=== PATIENT | female | born 1960 | race Caucasian/White ===

== ENCOUNTER 2020-05-21 09:53 | Outpatient (CLI) | payer OTHER, SELFPAY ==
[2020-05-21 10:57] LABS: Basophils Percent Auto 0.9 % (0.2-1.2); Eosinophils Absolute Auto 0.2 K/mm3 (0-0.3); Hematocrit 43.7 % (37.0-47.0); Hemoglobin 14.3 g/dL (12.0-15.0); Immature Granulocyte Absolute 0.02 K/mm3 (0.00-0.031); Immature Granulocyte Percent A 0.6 % (0-0.5); Lymphocytes Absolute Auto 0.89 K/mm3 (0.9-3.2); Lymphocytes Percent Auto 25.4 % (18.3-44.2); Mean Corpuscular HGB Conc 32.7 g/dl (32-36); Mean Corpuscular Hemoglobin 29.4 pg (26-34); Mean Corpuscular Volume 89.7 fl (80-100); Monocytes Absolute Auto 0.4 K/mm3 (0.1-0.6); Monocytes Percent Auto 10.9 % (2.6-8.5); Neutrophils Percent Auto 56.2 % (45.5-73.1); Platelet Count Result 225 k/mm3 (150-375); Red Blood Count 4.87 M/mm3 (4.2-5.4); Red Cell Distribution Width 13.9 % (11.5-14.5); White Blood Count 3.5 K/mm3 (4.5-10.0)
[2020-05-21 11:10] LABS: Alanine Aminotransferase 28 U/L (4-35); Alkaline Phosphatase 70 U/L (38-126); Anion Gap 6 mmol/L (8-16); Aspartate Amino Transferase 29 U/L (14-36); Bilirubin,Total 0.8 mg/dL (0.2-1.3); Blood Urea Nitrogen 21 mg/dL (7-17); Calcium 9.3 mg/dL (8.4-10.2); Carbon Dioxide 32 mmol/L (22-30); Chloride 104 mmol/L (98-107); Cholesterol 155 mg/dL (0-200); Estimated Glomerular Filt Rate > 60; Glucose 97 mg/dL (65-105); HDL Direct 68 mg/dL; Potassium 4.4 mmol/L (3.4-5.0); Sodium 142 mmol/L (137-145); Triglycerides 45 mg/dL (<150)
[2020-05-21 11:20] LABS: LDL Cholesterol Direct 74 mg/dL
[2020-05-21 11:53] LABS: Vitamin D 25 Hydroxy 81.2 ng/mL
[2020-05-26 12:52] LABS: FSH 85.4 mIU/mL (***); LH 49.8 mIU/mL (***)
[2020-05-27 22:56] LABS: Estradiol, Ultrasensitive 4 pg/mL
== END 2020-05-21 09:54 | disposition home or self-care (01) ==
LOC: ANHLAB 09:58
PROVIDERS: PCP Nurse Practitioner Family; Visit Provider Nurse Practitioner Family
DX: N94.10 Unspecified dyspareunia (principal); I10 Essential (primary) hypertension; Z13.1 Encounter for screening for diabetes mellitus; Z13.29 Encounter for screening for other suspected endocrine disorder; Z13.220 Encounter for screening for lipoid disorders
CPT/HCPCS: 36415; 80053; 80061; 82306; 82607; 82670; 83001; 83002; 84443; 85025

== ENCOUNTER 2020-09-11 10:56 | Outpatient (CLI) | payer OTHER, SELFPAY ==
--- NOTE | ~2020-09-11 | US_ITS ---
EXAMINATION: US venous doppler LE DATE: 09/11/2020 11:34 INDICATION: Lower limb swelling post right total knee arthroplasty TECHNIQUE: Grayscale ultrasound images without and with compression and Doppler ultrasound images of the right lower extremity veins were obtained. COMPARISON: None. FINDINGS: The visualized portions of right common femoral vein, profunda (deep) femoral vein, femoral vein, pop liteal vein, peroneal trunk, posterior tibial veins, peroneal veins, gastrocnemius vein and greater s aphenous vein outflow are patent. IMPRESSION: 1. No deep venous thrombosis in the right lower limb. Reviewed, dictated and finalized at location B. [employer]
== END 2020-09-11 10:57 | disposition home or self-care (01) ==
LOC: ANHIMG 10:58
PROVIDERS: PCP Nurse Practitioner Family; Visit Provider Orthopaedic Surgery
DX: R60.0 Localized edema (principal)
CPT/HCPCS: 93971

== ENCOUNTER 2021-09-07 15:15 | Outpatient (CLI) | payer OTHER, SELFPAY ==
[2021-09-07 16:09] LABS: Alanine Aminotransferase 30 U/L (4-35); Albumin Level 4.5 g/dL (3.5-5.1); Alkaline Phosphatase 65 U/L (38-126); Anion Gap 8 mmol/L (8-16); Aspartate Amino Transferase 26 U/L (14-36); Bilirubin,Total 0.4 mg/dL (0.2-1.3); Blood Urea Nitrogen 23 mg/dL (7-17); Calcium 9.4 mg/dL (8.4-10.2); Carbon Dioxide 32 mmol/L (22-30); Chloride 101 mmol/L (98-107); Cholesterol 180 mg/dL (0-200); Estimated Glomerular Filt Rate > 60; Glucose 129 mg/dL (65-110); HDL Direct 64 mg/dL; Potassium 3.8 mmol/L (3.4-5.0); Sodium 141 mmol/L (137-145); Triglycerides 111 mg/dL (<150)
[2021-09-07 16:10] LABS: Basophils Percent Auto 0.5 % (0.2-1.2); Eosinophils Absolute Auto 0.1 K/mm3 (0-0.3); Eosinophils Percent Auto 1.1 % (0-4.4); Hematocrit 46.1 % (37.0-47.0); Hemoglobin 15.2 g/dL (12.0-15.0); Immature Granulocyte Absolute 0.01 K/mm3 (0.00-0.031); Immature Granulocyte Percent A 0.2 % (0-0.5); Lymphocytes Absolute Auto 1.55 K/mm3 (0.9-3.2); Lymphocytes Percent Auto 27.7 % (18.3-44.2); Mean Corpuscular Hemoglobin 29.6 pg (26-34); Mean Corpuscular Volume 89.9 fl (80-100); Mean Platelet Volume 11.2 fl (7.4-10.4); Monocytes Absolute Auto 0.4 K/mm3 (0.1-0.6); Monocytes Percent Auto 6.6 % (2.6-8.5); Neutrophils Absolute Auto 3.6 K/mm3 (1.3-6.7); Neutrophils Percent Auto 63.9 % (45.5-73.1); Platelet Count Result 241 k/mm3 (150-375); Red Blood Count 5.13 M/mm3 (4.2-5.4); Red Cell Distribution Width 13.2 % (11.5-14.5); White Blood Count 5.6 K/mm3 (4.5-10.0)
[2021-09-07 16:20] LABS: LDL Cholesterol Direct 91 mg/dL
[2021-09-07 17:14] LABS: Thyroid Stimulating Hormone Reflex 0.294 uIU/mL (0.465-4.68)
[2021-09-07 22:01] LABS: Hemoglobin A1C 4.9 % (<5.7)
[2021-09-07 22:45] LABS: Free T4 Free Thyroxine Reflex 0.95 ng/dL (0.78-2.19)
== END 2021-09-07 15:16 | disposition home or self-care (01) ==
LOC: ANHLAB 15:20
PROVIDERS: PCP Nurse Practitioner Family; Visit Provider Nurse Practitioner Family
DX: Z13.0 Encounter for screening for diseases of the blood and blood-forming organs and certain disorders involving the immune mechanism (principal); Z13.1 Encounter for screening for diabetes mellitus; Z13.29 Encounter for screening for other suspected endocrine disorder; Z13.220 Encounter for screening for lipoid disorders
CPT/HCPCS: 36415; 80053; 80061; 83036; 84439; 84443; 84480; 85025

== ENCOUNTER 2021-10-05 17:17 | Outpatient (CLI) | payer OTHER, SELFPAY ==
--- NOTE | ~2021-10-05 | MM_ITS ---
EXAMINATION: MM screening byron BI w giovanny HISTORY: Screening mammogram TECHNIQUE: Craniocaudal and mediolateral oblique 3-D tomosynthesis images were obtained and synthetic 2-D images were generated. CAD analysis was submitted and interpreted. COMPARISON: No prior mammogram is available for comparison at this institution. BREAST PARENCHYMAL COMPOSITION: There are scattered areas of fibroglandular density. FINDINGS: There is asymmetric density in the lower left breast on MLO view. Comparison with prior byron mogram at [place] is recommended. Otherwise no suspicious mass, architectural distortion, malignant calcification, skin thickening or r etraction is evident. IMPRESSION: 1. Left mammographic asymmetry, lower left breast, MLO view 2. Recommend comparison with prior mammogram at [place]; this asymmetry is new, then fur ther diagnostic mammogram and ultrasound workup are recommended. BI-RADS Category 0: Incomplete: Needs additional imaging evaluation. Reviewed, dictated and finalized at location A. [employer] IMPRESSION: 1. Left mammographic asymmetry, lower left breast, MLO view 2. Recommend comparison with prior mammogram at [place]; this asym metry is new, then further diagnostic mammogram and ultrasound workup are recom mended. BI-RADS Category 0: Incomplete: Needs additional imaging evaluation.
== END 2021-10-05 17:18 | disposition home or self-care (01) ==
LOC: ANHIMG 17:19
PROVIDERS: PCP Nurse Practitioner Family; Visit Provider Nurse Practitioner Family
DX: Z12.31 Encounter for screening mammogram for malignant neoplasm of breast (principal); R92.8 Other abnormal and inconclusive findings on diagnostic imaging of breast
CPT/HCPCS: 77063; 77067

== ENCOUNTER 2021-11-08 13:23 | Outpatient (CLI) | payer OTHER, SELFPAY ==
--- NOTE | ~2021-11-08 | MMUS_ITS ---
EXAMINATION: MM diagnostic byron LT w giovanny, US breast LT limited HISTORY: Left breast asymmetry on screening mammogram TECHNIQUE: Additional 3-D tomosynthesis images of the left breast were performed and synthetic 2-D im ages were generated. CAD analysis was submitted and interpreted. High resolution limited left breast ultrasound was performed. COMPARISON: 10/05/2021, 06/13/2019, 09/16/2014 BREAST PARENCHYMAL COMPOSITION: There are scattered areas of fibroglandular density. FINDINGS: MAMMOGRAPHIC FINDINGS: There is a return to baseline fibroglandular appearance with spot compression of the left breast in t he area questioned on screening mammogram. ULTRASOUND: No suspicious sonographic correlate is identified for the mammographic finding in question. There is a 2 mm cyst at the 7:00 location 1 cm from the nipple. IMPRESSION: 1. No mammographic or sonographic evidence of malignancy. 2. Recommend routine screening mammography in one year. BI-RADS Category 2: Benign finding(s). Reviewed, dictated and finalized at location A. IMPRESSION: 1. No mammographic or sonographic evidence of malignancy. 2. Recommend routine screening mammography in one year. BI-RADS Category 2: Benign finding(s).
== END 2021-11-08 13:24 | disposition home or self-care (01) ==
LOC: ANHIMG 13:27
PROVIDERS: PCP Nurse Practitioner Family; Visit Provider Nurse Practitioner Family
DX: R92.8 Other abnormal and inconclusive findings on diagnostic imaging of breast (principal)
CPT/HCPCS: 76642; 77061; 77065; G0279

== ENCOUNTER 2021-11-10 01:34 | Day surgery (SDC) | payer OTHER, SELFPAY ==
[2021-11-02 10:38] VITALS: BMI 28.8
[2021-11-10 06:53] VITALS: BP 162/86; PULSE 70; RESP 18; TEMP 36.2; O2SAT 100
[2021-11-10] MEDS: LACTATED RINGERS 1,000 ML 150 ML IV CONT (06:59)
--- NOTE | 2021-11-10 07:08 | P.CONGI_ITS ---
Assessment and Plan Assessment and plan (1) Colon cancer screening: Code(s): Z12.11 - Encounter for screening for malignant neoplasm of colon Status: Acute (2) History of colon cancer: Code(s): Z85.038 - Personal history of other malignant neoplasm of large intestine Status: Acute Assessment and Plan: Colonoscopy with possible biopsy or polypectomy or cautery or injection of substances. GI Consult Note Consult date/time: 11/10/21 07:08 HPI: Archana Jones is a 61 year old female Who had rectal cancer diagnosed in 2007. She had a resection and temporary colostomy and then reanastomosis. Her only issues that her stools have tended to be on a soft and loose side for the past several years. She has had a cholecystectomy Review of Systems 2 Review of Systems: All systems reviewed & are unremarkable except as noted in HPI and below PMFSH Family History Family History Grandparent Hypertension Diabetes mellitus Father Family history of lung cancer Other Family history of primary malignant neoplasm of liver Social History Social History Smoking status: Former smoker Tobacco type: cigarettes Smoking end date: 08/14/09 Alcohol intake: current Drinks per week: 2 Alcohol use details: wine Substance use: never Substance use type: does not use Living arrangements: with family Spiritual care concerns: No Meds Home Medications and Allergies Home Medications Medication Instructions Recorded Confirmed Type escitalopram oxalate 5 mg PO DAILY 11/02/21 11/10/21 History Allergies Allergy/AdvReac Type Severity Reaction Status Date / Time adhesive Allergy Unknown RASH Verified 11/10/21 06:52 bacitracin Allergy Unknown Rash Verified 11/10/21 06:52 neomycin Allergy Unknown Rash Verified 11/10/21 06:52 polymyxin B Allergy Unknown Rash Verified 11/10/21 06:52 Vital Signs Vital Signs - 24 hr 11/10/21 06:53 Temperature 36.2 C L Pulse Rate 70 Respiratory Rate 18 Blood Pressure 162/86 H Pulse Oximetry 100 Exam Resp: Auscultation: clear to auscultation bilaterally Cardio: Rate: regular rate Rhythm: regular rhythm GI: GI Palp: Yes Soft to palpation and No Tenderness to palpation present (GI) AMG Consult Billing Observation Consult [id number] Estab Pt Lvl 2
--- NOTE | 2021-11-10 07:26 | WPDANESEPPF ---
Anes - Initial Pre Proc Eval Procedure: Operation Date: 11/10/21 08:00 Proposed Procedures p Screening Colonoscopy - Raul Doshi MD Date/Time: 11/10/21 07:26 Surgeon: Raul Doshi MD Pre Op Diagnosis: hx of colon rectal ca Patient Data Age: 61 Gender: F Height: 1.73 m Weight: 87.5 kg Last Vital Signs Temp 36.2 C L 11/10/21 06:53 Pulse 70 11/10/21 06:53 Resp 18 11/10/21 06:53 BP 162/86 H 11/10/21 06:53 Pulse Ox 100 11/10/21 06:53 Allergies Allergy/AdvReac Type Severity Reaction Status Date / Time adhesive Allergy Unknown RASH Verified 11/10/21 06:52 bacitracin Allergy Unknown Rash Verified 11/10/21 06:52 neomycin Allergy Unknown Rash Verified 11/10/21 06:52 polymyxin B Allergy Unknown Rash Verified 11/10/21 06:52 Home Medications Medication Instructions Recorded Confirmed Type escitalopram oxalate 5 mg PO DAILY 11/02/21 11/10/21 History Patient hx anesthesia problems: none Family hx anesthesia problems: none Results Review: All pre-operative results and documents have been reviewed as part of the pre-operative evaluation. [facility] Past Medical History Medical History (Updated 11/10/21 @ 07:29 by Juan Ramon Hernandez MD) Anxiety Depression HTN (hypertension) Family History Family History Grandparent Hypertension Diabetes mellitus Father Family history of lung cancer Other Family history of primary malignant neoplasm of liver Social History Social History Smoking status: Former smoker Tobacco type: cigarettes Smoking end date: 08/14/09 Alcohol intake: current Drinks per week: 2 Alcohol use details: wine Substance use: never Substance use type: does not use Living arrangements: with family Spiritual care concerns: No Anes - Eval Final PreProcedure Day of Procedure 11/10/21 07:26 Patient weight: overweight Heart: regular rate and rhythm Lungs: clear to auscultation and normal air movement Airway: Mallampati scale class II Neurological: alert and oriented Last oral intake: >/= 8 hours ASA classification: II Emergent: no Anesthetic plan: proceed Anesthesia type and monitoring: general GIVS Results Review: All pre-operative results and documents have been reviewed as part of the pre-operative evaluation. Informed Consent: The patient's anesthetic plan and its attendant risks and benefits were discussed with the patient/family/POA. Questions were solicited and answers provided to the satisfaction of the patient/family/POA.
[2021-11-10 08:13] VITALS: BP 122/81; PULSE 67; RESP 14; O2SAT 100
[2021-11-10 08:23] VITALS: BP 148/95; PULSE 64; RESP 16; O2SAT 100
[2021-11-10 08:33] VITALS: BP 144/92; PULSE 65; RESP 18; O2SAT 100
== END 2021-11-10 08:43 | disposition home or self-care (01) ==
PROVIDERS: PCP Nurse Practitioner Family; Visit Provider Internal Medicine Gastroenterology
PROC: 0DJD8ZZ Inspection of Lower Intestinal Tract, Via Natural or Artificial Opening Endoscopic (ICD-10-PCS; CPT 45378; principal; 2021-11-10 08:00)
DX: Z12.11 Encounter for screening for malignant neoplasm of colon (principal); K57.30 Diverticulosis of large intestine without perforation or abscess without bleeding; Z98.0 Intestinal bypass and anastomosis status; Z85.048 Personal history of other malignant neoplasm of rectum, rectosigmoid junction, and anus; Z90.49 Acquired absence of other specified parts of digestive tract; F41.8 Other specified anxiety disorders; Z87.891 Personal history of nicotine dependence
CPT/HCPCS: 45378; J2704; J7120

== ENCOUNTER 2022-01-25 14:23 | Outpatient (CLI) | payer OTHER, SELFPAY ==
[2022-01-25 15:58] LABS: Free T4 Free Thyroxine 1.15 ng/mL (0.78-2.19)
== END 2022-01-25 14:24 | disposition home or self-care (01) ==
PROVIDERS: PCP Nurse Practitioner Family; Visit Provider Nurse Practitioner Family
DX: R94.6 Abnormal results of thyroid function studies (principal)
CPT/HCPCS: 36415; 84439; 84443

== ENCOUNTER 2022-10-14 09:31 | Outpatient (CLI) | payer OTHER, SELFPAY ==
[2022-10-14 10:08] LABS: Basophils Percent Auto 0.6 % (0.2-1.2); Eosinophils Absolute Auto 0.1 K/mm3 (0-0.3); Eosinophils Percent Auto 1.8 % (0-4.4); Hemoglobin 15.2 g/dL (12.0-15.0); Immature Granulocyte Absolute 0.02 K/mm3 (0.00-0.031); Immature Granulocyte Percent A 0.4 % (0-0.5); Lymphocytes Absolute Auto 1.32 K/mm3 (0.9-3.2); Lymphocytes Percent Auto 26.5 % (18.3-44.2); Mean Corpuscular Hemoglobin 29.1 pg (26-34); Mean Corpuscular Volume 88.1 fl (80-100); Mean Platelet Volume 10.1 fl (7.4-10.4); Monocytes Absolute Auto 0.4 K/mm3 (0.1-0.6); Neutrophils Absolute Auto 3.1 K/mm3 (1.3-6.7); Neutrophils Percent Auto 62.7 % (45.5-73.1); Platelet Count Result 273 k/mm3 (150-375); Red Blood Count 5.22 M/mm3 (4.2-5.4); Red Cell Distribution Width 13.7 % (11.5-14.5)
[2022-10-14 11:17] LABS: Alanine Aminotransferase 25 U/L (6-35); Albumin Level 4.6 g/dL (3.5-5.1); Alkaline Phosphatase 85 U/L (38-126); Anion Gap 8 mmol/L (8-16); Aspartate Amino Transferase 24 U/L (14-36); Bilirubin,Total 0.6 mg/dL (0.2-1.3); Blood Urea Nitrogen 20 mg/dL (7-17); Calcium 9.2 mg/dL (8.4-10.2); Carbon Dioxide 29 mmol/L (22-30); Chloride 105 mmol/L (98-107); Cholesterol 236 mg/dL (0-200); Estimated Glomerular Filt Rate > 60; Glucose 94 mg/dL (65-110); HDL Direct 77 mg/dL; Potassium 4.5 mmol/L (3.4-5.0); Sodium 142 mmol/L (137-145); Triglycerides 86 mg/dL (<150)
[2022-10-14 11:22] LABS: Vitamin D 25 Hydroxy 72.1 ng/mL
[2022-10-14 11:29] LABS: LDL Cholesterol Direct 119 mg/dL
== END 2022-10-14 09:32 | disposition home or self-care (01) ==
PROVIDERS: PCP Nurse Practitioner Family; Visit Provider Nurse Practitioner Family
DX: Z13.0 Encounter for screening for diseases of the blood and blood-forming organs and certain disorders involving the immune mechanism (principal); Z13.1 Encounter for screening for diabetes mellitus; Z13.29 Encounter for screening for other suspected endocrine disorder; Z13.220 Encounter for screening for lipoid disorders; E55.9 Vitamin D deficiency, unspecified; E53.8 Deficiency of other specified B group vitamins
CPT/HCPCS: 36415; 80053; 80061; 82306; 82607; 83036; 84443; 85025

== ENCOUNTER 2023-06-08 00:23 | Day surgery (SDC) | payer OTHER, SELFPAY ==
[2023-05-26 14:52] VITALS: BMI 35.6
--- NOTE | 2023-06-07 15:33 | PM.HPGS ---
History of Present Illness History of Present Illness Consent: Risks, benefits, and alternatives have been discussed and questions answered. Patient agrees to proceed with procedure. Chief complaint: Hemorrhage of anus/rectum, GERD Narrative: Archana Jones is a 63 year old female with hx of rectal cancer s/p colon resection (2006) was seen in office for c/o of rectal bleeding. She reports one episode of BRBPR on a Monday and again on Monday.? States she passes about half cup of blood with the bowel movements but denies any clots.? She had a colonoscopy 1 year ago which was unremarkable except for diverticulosis. She also has chronic problems with acid reflux. For that she takes the Nexium p.r.n.. She has lately had difficulty with swallowing at times with food hanging up when she is eating. Even water sometimes will seem to cause her to have a spasm and it finally will go down. Review of Systems Review of Systems: All systems reviewed & are unremarkable except as noted in HPI and below PMFSH Past Medical History Medical History Anxiety BRBPR (bright red blood per rectum) Depression FH: total knee replacement HTN (hypertension) Surgical History Surgical History H/O foot surgery H/O knee surgery Family History Family History Grandparent Hypertension Diabetes mellitus Father Family history of lung cancer Other Family history of primary malignant neoplasm of liver Social History Social History Smoking packs per day: 1 Smoking cigarettes per day: 20.0 Years smoked: 20 Smoking pack-years: 20.00 Smoking status: Former smoker Tobacco type: cigarettes Smoking end date: 08/14/09 Alcohol intake: current Drinks per week: 5 Alcohol use details: wine Substance use: never Substance use type: does not use Lack of Transportation: No Lack of Food: Never True Current Housing: I Have Housing Concerned About Future Housing: No Difficulty Paying Gas/Electric Bills: No Difficulty Paying for Meds: No Currently Unemployed: No Education: High School Diploma/GED Difficulty w/ Childcare or Family Care: No Living arrangements: with family Occupation/Education: retired Gender identity (if verbalized by the patient): Female Spiritual care concerns: No Meds Home Medications and Allergies Home Medications Medication Instructions Recorded Confirmed Type escitalopram oxalate 10 mg tablet 10 mg PO DAILY 04/26/23 06/08/23 History (Lexapro) nifedipine 60 mg tablet,extended 60 mg PO DAILY 04/26/23 06/08/23 History release Allergies Allergy/AdvReac Type Severity Reaction Status Date / Time adhesive Allergy Unknown RASH Verified 06/08/23 09:57 bacitracin Allergy Unknown Rash Verified 05/26/23 14:49 neomycin Allergy Unknown Rash Verified 06/08/23 09:57 polymyxin B Allergy Unknown Rash Verified 06/08/23 09:57 Exam Const: General: alert Orientation/consciousness: patient oriented x3 Resp: Auscultation: clear to auscultation bilaterally Cardio: Rhythm: regular rhythm GI: GI Palp: Yes Soft to palpation and No Tenderness to palpation present (GI) Neuro: General: patient oriented x3 Assessment and Plan Assessment and plan (1) BRBPR (bright red blood per rectum): Code(s): K62.5 - Hemorrhage of anus and rectum Status: Acute Assessment and Plan: sigmoidoscopy with possible biopsy or polypectomy or cautery or injection of substances. (2) Dysphagia: Code(s): R13.10 - Dysphagia, unspecified Status: Acute Assessment and Plan: EGD with possible biopsy or dilatation or cautery. Plan
[2023-06-08 09:58] VITALS: BP 151/104; PULSE 88; RESP 20; O2SAT 98; BMI 34.9
[2023-06-08] MEDS: LACTATED RINGERS 1,000 ML 150 ML IV CONT (10:02)
--- NOTE | 2023-06-08 10:22 | WPDANESEPPF ---
Anes - Initial Pre Proc Eval Procedure: Operation Date: 06/08/23 11:00 Proposed Procedures p Esophagogastroduodenoscopy - Raul Doshi MD s Flexible Sigmoidoscopy - Raul Doshi MD Date/Time: 06/08/23 10:22 Surgeon: Raul Doshi MD Pre Op Diagnosis: Hemorrhage of anus/rectum, GERD Patient Data Age: 63 Gender: F Height: 1.75 m Weight: 107.2 kg Last Vital Signs Pulse 88 06/08/23 09:58 Resp 20 06/08/23 09:58 BP 151/104 H 06/08/23 09:58 Pulse Ox 98 06/08/23 09:58 O2 Del Method Room Air 06/08/23 09:58 Allergies Allergy/AdvReac Type Severity Reaction Status Date / Time adhesive Allergy Unknown RASH Verified 06/08/23 09:57 bacitracin Allergy Unknown Rash Verified 05/26/23 14:49 neomycin Allergy Unknown Rash Verified 06/08/23 09:57 polymyxin B Allergy Unknown Rash Verified 06/08/23 09:57 Home Medications Medication Instructions Recorded Confirmed Type escitalopram oxalate 10 mg tablet 10 mg PO DAILY 04/26/23 06/08/23 History (Lexapro) nifedipine 60 mg tablet,extended 60 mg PO DAILY 04/26/23 06/08/23 History release Patient hx anesthesia problems: none Family hx anesthesia problems: none Results Review: All pre-operative results and documents have been reviewed as part of the pre-operative evaluation. [facility] Past Medical History Medical History Anxiety BRBPR (bright red blood per rectum) Depression FH: total knee replacement HTN (hypertension) Surgical History Surgical History H/O foot surgery H/O knee surgery Family History Family History Grandparent Hypertension Diabetes mellitus Father Family history of lung cancer Other Family history of primary malignant neoplasm of liver Social History Social History Smoking packs per day: 1 Smoking cigarettes per day: 20.0 Years smoked: 20 Smoking pack-years: 20.00 Smoking status: Former smoker Tobacco type: cigarettes Smoking end date: 08/14/09 Alcohol intake: current Drinks per week: 5 Alcohol use details: wine Substance use: never Substance use type: does not use Lack of Transportation: No Lack of Food: Never True Current Housing: I Have Housing Concerned About Future Housing: No Difficulty Paying Gas/Electric Bills: No Difficulty Paying for Meds: No Currently Unemployed: No Education: High School Diploma/GED Difficulty w/ Childcare or Family Care: No Living arrangements: with family Occupation/Education: retired Gender identity (if verbalized by the patient): Female Spiritual care concerns: No Anes - Eval Final PreProcedure Day of Procedure 06/08/23 10:22 Patient weight: obese Heart: regular rate and rhythm Lungs: clear to auscultation Airway: Mallampati scale class II Neurological: alert and oriented Last oral intake: >/= 8 hours ASA classification: III Emergent: no Anesthetic plan: proceed Anesthesia type and monitoring: general GIVS and standard monitoring Results Review: All pre-operative results and documents have been reviewed as part of the pre-operative evaluation. Informed Consent: The patient's anesthetic plan and its attendant risks and benefits were discussed with the patient/family/POA. Questions were solicited and answers provided to the satisfaction of the patient/family/POA.
[2023-06-08] MEDS: BENZOCAINE (*SP) 60 ML SPRAY CAN (HURRICAINE) 1 SPRAY MUCOUS MEM (11:08)
[2023-06-08 11:27] VITALS: BP 133/85; PULSE 74; RESP 17; O2SAT 95
[2023-06-08 11:37] VITALS: BP 154/108; PULSE 67; RESP 21; O2SAT 100
[2023-06-08 11:47] VITALS: BP 166/04; PULSE 72; RESP 20; O2SAT 99
== END 2023-06-08 11:50 | disposition home or self-care (01) ==
PROVIDERS: PCP Nurse Practitioner Family; Visit Provider Internal Medicine Gastroenterology
PROC: 0DJ08ZZ Inspection of Upper Intestinal Tract, Via Natural or Artificial Opening Endoscopic (ICD-10-PCS; CPT 43235; principal; 2023-06-08 11:00)
PROC: 0DJD8ZZ Inspection of Lower Intestinal Tract, Via Natural or Artificial Opening Endoscopic (ICD-10-PCS; CPT 45330; 2023-06-08 11:00)
DX: K62.5 Hemorrhage of anus and rectum (principal); K64.8 Other hemorrhoids; K57.30 Diverticulosis of large intestine without perforation or abscess without bleeding; K21.9 Gastro-esophageal reflux disease without esophagitis; Z85.048 Personal history of other malignant neoplasm of rectum, rectosigmoid junction, and anus; Z90.49 Acquired absence of other specified parts of digestive tract; I10 Essential (primary) hypertension; F41.9 Anxiety disorder, unspecified; F32.A Depression, unspecified; Z87.891 Personal history of nicotine dependence; E66.9 Obesity, unspecified; Z68.34 Body mass index [BMI] 34.0-34.9, adult
CPT/HCPCS: 43239; 45330; 88305; J2704; J7120

== ENCOUNTER 2023-11-10 10:40 | Emergency (ER) | payer OTHER, SELFPAY ==
[2023-11-10] VITALS (7 sets, daily range): BP systolic 155–181; BP diastolic 89–103; PULSE 62–83; RESP 12–21; TEMP 36.5; O2SAT 98–100
--- NOTE | ~2023-11-10 | XR_ITS ---
EXAMINATION: XR chest 2V DATE: 11/10/2023 11:11 INDICATION: Chest pain and pressure TECHNIQUE: Frontal and lateral views of the chest are obtained COMPARISON: 10/17/2017 FINDINGS: There are minimal airspace opacities of the left lung base. No pleural effusion or pneumoth orax. The cardiomediastinal silhouette is normal. There is moderate thoracic spondylosis. Surgical cl ips in the right upper quadrant are likely from prior cholecystectomy. IMPRESSION: 1. Left basilar airspace opacity, consistent with atelectasis versus pneumonia. Reviewed, dictated and finalized at location A.
--- NOTE | 2023-11-10 10:41 | ECG_ITS ---
Measurements Intervals [place] Rate: 81 P: 44 NC: 179 QRS: -9 QRSD: 98 T: 48 QT: 377 QTc: 438 Interpretive Statements SINUS RHYTHM DELAYED PRECORDIAL R/S TRANSITION BORDERLINE ECG NO PREVIOUS ECG AVAILABLE FOR COMPARISON Electronically Signed On 11-10-2023 11:12:36 CDT by Balwinder Grande D.O.
[2023-11-10 10:59] LABS: Basophils Percent Auto 0.6 % (0.2-1.2); Eosinophils Absolute Auto 0.1 K/mm3 (0-0.3); Eosinophils Percent Auto 1.4 % (0-4.4); Hematocrit 46.6 % (37.0-47.0); Hemoglobin 14.8 g/dL (12.0-15.0); Immature Granulocyte Absolute 0.04 K/mm3 (0.00-0.031); Immature Granulocyte Percent A 0.6 % (0-0.5); Lymphocytes Absolute Auto 1.58 K/mm3 (0.9-3.2); Lymphocytes Percent Auto 25.2 % (18.3-44.2); Mean Corpuscular HGB Conc 31.8 g/dl (32-36); Mean Corpuscular Hemoglobin 28.2 pg (26-34); Mean Corpuscular Volume 88.9 fl (80-100); Mean Platelet Volume 10.7 fl (7.4-10.4); Monocytes Absolute Auto 0.6 K/mm3 (0.1-0.6); Monocytes Percent Auto 9.4 % (2.6-8.5); Neutrophils Absolute Auto 3.9 K/mm3 (1.3-6.7); Neutrophils Percent Auto 62.8 % (45.5-73.1); Platelet Count Result 244 k/mm3 (150-375); Red Blood Count 5.24 M/mm3 (4.2-5.4); Red Cell Distribution Width 13.9 % (11.5-14.5); White Blood Count 6.3 K/mm3 (4.5-10.0)
[2023-11-10 11:08] LABS: Alanine Aminotransferase 24 U/L (6-35); Albumin Level 4.4 g/dL (3.5-5.1); Alkaline Phosphatase 104 U/L (38-126); Anion Gap 10 mmol/L (4-12); Aspartate Amino Transferase 25 U/L (14-36); Bilirubin,Total 0.6 mg/dL (0.2-1.3); Blood Urea Nitrogen 23 mg/dL (7-17); Calcium 9.5 mg/dL (8.4-10.2); Carbon Dioxide 20 mmol/L (22-30); Chloride 107 mmol/L (98-107); Estimated CRCL calculation 109 ml/min; Estimated Glomerular Filt Rate > 60; Glucose 100 mg/dL (65-110); Lipase 69 U/L (23-300); Potassium 4.4 mmol/L (3.4-5.0); Sodium 137 mmol/L (137-145)
[2023-11-10 11:13] LABS: Prothrombin Time 13.1 Seconds (11.1-14.7)
[2023-11-10 11:14] LABS: Partial Thromboplastin Time 26.4 Seconds (22.3-36.8)
[2023-11-10] MEDS: FAMOTIDINE 20 MG/2 ML VIAL IV PUSH (11:16)
[2023-11-10] MEDS: PANTOPRAZOLE SODIUM IV 40 MG VIAL IV PUSH (11:16)
[2023-11-10 11:20] LABS: Troponin I < 0.012 ng/mL (0.000-0.034)
[2023-11-10] MEDS: DOXYCYCLINE HYCLATE 100 MG TABLET PO (12:36)
--- NOTE | 2023-11-10 15:55 | ED.CHESTPAIN ---
HPI - Chest Pain General Chief Complaint: Chest Pain Stated Complaint: Chest pain Time Seen by Provider: 11/10/23 10:55 History of Present Illness HPI narrative: Patient presents here with mid sternal/epigastric discomfort that seems to radiate up, with some nausea, feels like her GERD, tried taking some medicine which helped for a few minutes. No shortness of breath. Related Data Home Medications Medication Instructions Recorded Confirmed escitalopram oxalate 10 mg tablet 10 mg PO DAILY 04/26/23 06/08/23 (Lexapro) nifedipine 60 mg tablet,extended 60 mg PO DAILY 04/26/23 06/08/23 release Allergies Allergy/AdvReac Type Severity Reaction Status Date / Time adhesive Allergy Unknown RASH Verified 06/08/23 09:57 bacitracin Allergy Unknown Rash Verified 05/26/23 14:49 neomycin Allergy Unknown Rash Verified 06/08/23 09:57 polymyxin B Allergy Unknown Rash Verified 06/08/23 09:57 Review of Systems Review of Systems: CONST: No fever. HEENT: No sore throat C/V: Chest pain RESP: No cough GI: Reports epigastric pain and nausea : No dysuria. M/S: No joint pain. SKIN: No rash. NEURO: [No headache or focal numbness or weakness] PSYCH: [No depression] PMFSH Past Medical History Medical History Anxiety BRBPR (bright red blood per rectum) Depression FH: total knee replacement HTN (hypertension) Surgical History Surgical History H/O foot surgery H/O knee surgery Family History Family History Grandparent Hypertension Diabetes mellitus Father Family history of lung cancer Other Family history of primary malignant neoplasm of liver Social History Social History Smoking packs per day: 1 Smoking cigarettes per day: 20.0 Years smoked: 20 Smoking pack-years: 20.00 Smoking status: Former smoker Tobacco type: cigarettes Smoking end date: 08/14/09 Alcohol intake: current Drinks per week: 5 Alcohol use details: wine Substance use: never Substance use type: does not use Lack of Transportation: No Lack of Food: Never True Current Housing: I Have Housing Concerned About Future Housing: No Difficulty Paying Gas/Electric Bills: No Difficulty Paying for Meds: No Currently Unemployed: No Education: High School Diploma/GED Difficulty w/ Childcare or Family Care: No Living arrangements: with family Occupation/Education: retired Gender identity (if verbalized by the patient): Female Spiritual care concerns: No Exam Narrative: EXAMINATION OF ORGAN SYSTEMS/BODY AREAS: Constitutional: Vital signs per nursing GENERAL:[No acute distress, non-toxic appearing.] HEAD: Normal with no signs of head trauma. EYES: EOMI, conjunctiva normal ENT: Hearing grossly intact LUNGS: Nonlabored breathing. HEART: [Regular rate and rhythm] ABD: [Soft], [nontender to palpation] EXT: Normal range of motion SKIN: [No rashes or lesions.] NEURO: [Alert and oriented x 3. No gross focal sensory or strength deficits.] PSYCH: Normal affect Course Vital Signs Vital signs: Vital Signs Temperature 97.7 F 11/10/23 10:45 Pulse Rate 83 11/10/23 10:45 Respiratory Rate 21 H 11/10/23 10:45 Blood Pressure 181/103 H 11/10/23 10:45 Pulse Oximetry 99 11/10/23 10:45 Oxygen Delivery Room Air 11/10/23 10:45 Temperature 97.7 F 11/10/23 10:45 Pulse Rate 71 11/10/23 12:02 Respiratory Rate 18 11/10/23 12:02 Blood Pressure 163/89 H 11/10/23 12:02 Pulse Oximetry 100 11/10/23 12:02 Oxygen Delivery Room Air 11/10/23 11:04 MDM - Chest Pain MDM Narrative Medical decision making narrative: ED COURSE AND MEDICAL DECISION MAKIN) Differential diagnosis: ACS/CA, GERD/gastritis, pancreatitis 2) Comorbidities: GERD, hypertension
== END 2023-11-10 12:39 | disposition home or self-care (01) ==
PROVIDERS: Emergency Provider Emergency Medicine; PCP Nurse Practitioner Family
DX: R07.89 Other chest pain (principal); I10 Essential (primary) hypertension; K21.9 Gastro-esophageal reflux disease without esophagitis; F41.9 Anxiety disorder, unspecified; F32.A Depression, unspecified; Z96.659 Presence of unspecified artificial knee joint; Z87.891 Personal history of nicotine dependence
CPT/HCPCS: 36415; 71046; 80053; 83690; 84484; 85025; 85610; 85730; 93005; 96374; 96375; 99284; A9270; C9113

== ENCOUNTER 2023-11-24 14:22 | Outpatient (CLI) | payer OTHER, SELFPAY ==
[2023-11-24 14:39] LABS: Hematocrit 44.2 % (37.0-47.0); Hemoglobin 14.4 g/dL (12.0-15.0); Mean Corpuscular HGB Conc 32.6 g/dl (32-36); Mean Corpuscular Hemoglobin 28.9 pg (26-34); Mean Corpuscular Volume 88.6 fl (80-100); Mean Platelet Volume 10.6 fl (7.4-10.4); Platelet Count Result 278 k/mm3 (150-375); Red Blood Count 4.99 M/mm3 (4.2-5.4); Red Cell Distribution Width 13.8 % (11.5-14.5); White Blood Count 6.3 K/mm3 (4.5-10.0)
[2023-11-24 14:50] LABS: Alanine Aminotransferase 21 U/L (6-35); Albumin Level 4.6 g/dL (3.5-5.1); Alkaline Phosphatase 119 U/L (38-126); Anion Gap 7 mmol/L (4-12); Aspartate Amino Transferase 25 U/L (14-36); Bilirubin,Total 0.7 mg/dL (0.2-1.3); Blood Urea Nitrogen 18 mg/dL (7-17); Calcium 9.9 mg/dL (8.4-10.2); Carbon Dioxide 24 mmol/L (22-30); Chloride 107 mmol/L (98-107); Cholesterol 210 mg/dL (0-200); Estimated Glomerular Filt Rate > 60; Glucose 96 mg/dL (65-110); HDL Direct 76 mg/dL; Potassium 4.2 mmol/L (3.4-5.0); Sodium 138 mmol/L (137-145); Triglycerides 110 mg/dL (<150)
[2023-11-24 15:01] LABS: LDL Cholesterol Direct 119 mg/dL
== END 2023-11-24 14:23 | disposition home or self-care (01) ==
LOC: ANHLAB 14:23
PROVIDERS: PCP Nurse Practitioner Family; Visit Provider Nurse Practitioner Family
DX: Z13.1 Encounter for screening for diabetes mellitus (principal); Z13.0 Encounter for screening for diseases of the blood and blood-forming organs and certain disorders involving the immune mechanism; Z13.220 Encounter for screening for lipoid disorders; Z13.29 Encounter for screening for other suspected endocrine disorder
CPT/HCPCS: 36415; 80053; 80061; 83036; 84443; 85027

== ENCOUNTER 2024-01-19 10:28 | Outpatient (CLI) | payer OTHER, SELFPAY ==
--- NOTE | ~2024-01-19 | XR_ITS ---
Clinical Indication: Cough PA and lateral views of the chest: Comparison: 11/10/2023 Findings: The lungs are clear, without evidence of focal consolidation or pleural effusion. Cardiome diastinal silhouette is within normal limits. Bones and soft tissues are unremarkable. Impression: Normal chest. Reviewed, dictated and finalized at location . Impression: Normal chest.
== END 2024-01-19 10:29 | disposition home or self-care (01) ==
LOC: ANHIMG 10:30
PROVIDERS: PCP Nurse Practitioner Family; Visit Provider Nurse Practitioner Family
DX: R05.9 Cough, unspecified (principal)
CPT/HCPCS: 71046

== ENCOUNTER 2024-04-01 12:57 | Emergency (ER) | payer OTHER, SELFPAY ==
[2024-04-01] VITALS (11 sets, daily range): BP systolic 123–151; BP diastolic 67–83; PULSE 61–97; RESP 16–23; TEMP 36.3–36.6; O2SAT 95–98
--- NOTE | ~2024-04-01 | XR_ITS ---
EXAMINATION: XR knee RT 3V DATE: 04/01/2024 14:19 INDICATION: Right knee pain post fall TECHNIQUE: AP, lateral and oblique views of the right knee were obtained COMPARISON: None. FINDINGS: Right total knee arthroplasty with patellar resurfacing and long stem femoral and tibial components. Alignment appears near-anatomic with no fracture or suspected loosening. Minimal right knee joint eff usion. Mild prepatellar soft tissue swelling. IMPRESSION: 1. Expected appearance of a right total knee arthroplasty. No acute osseous abnormality. Reviewed, dictated and finalized at location A. IMPRESSION: 1. Expected appearance of a right total knee arthroplasty. No acute osseous abn ormality.
--- NOTE | ~2024-04-01 | XR_ITS ---
EXAMINATION: XR shoulder LT min 2V DATE: 04/01/2024 14:19 INDICATION: Left shoulder pain. Injury. TECHNIQUE: 4 views of left shoulder were obtained. COMPARISON: None. FINDINGS: Bone alignment is normal. No fracture. Joint spaces are normal. IMPRESSION: 1. Normal left shoulder. Reviewed, dictated and finalized at location A. IMPRESSION: 1. Normal left shoulder.
--- NOTE | ~2024-04-01 | XR_ITS ---
EXAMINATION: XR elbow LT min 3V DATE: 04/01/2024 14:19 INDICATION: Left elbow pain. Injury. TECHNIQUE: 4 views of left elbow were obtained. COMPARISON: None. FINDINGS: Bone alignment is normal. There is a displaced fracture of the capitellum of distal humerus with dislocation of radiocapitellar joint. There is a tiny osteophyte of the radial head. There is a n elbow joint effusion. IMPRESSION: 1. Fracture-dislocation of the capitellum. 2. Elbow joint effusion. Reviewed, dictated and finalized at location A.
--- NOTE | 2024-04-01 13:39 | ED.UPPEXIN ---
HPI - Extremity Injury (Upper) General Chief Complaint: Extremity Injury, Upper <ANGY Leija Last Filed: 04/01/24 15:14> Stated Complaint: left arm pain after fall <ANGY Leija Last Filed: 04/01/24 15:14> Time Seen by Provider: 04/01/24 13:36 <ANGY Leija Last Filed: 04/01/24 15:14> Source: patient <ANGY Leija Last Filed: 04/01/24 15:14> Mode of arrival: ambulatory <ANGY Leija Last Filed: 04/01/24 15:14> Limitations: no limitations <ANGY Leija Last Filed: 04/01/24 15:14> History of Present Illness HPI narrative: Patient is a 64-year-old female who presents the ED status post fall. Patient reports she was at work when she tripped and fell. She attempted to catch herself with her left arm. She complains of pain to her left shoulder and left elbow. Limited range of motion. She also complains of pain to her right knee. She did not hit her head or lose consciousness. Takes ASA 81mg daily, no other blood thinners. Denies numbness. Has not taken anything for pain. <ANGY Leija Last Filed: 04/01/24 15:14> Related Data Home Medications: Home Medications Medication Instructions Recorded Confirmed escitalopram oxalate 10 mg tablet 10 mg PO DAILY 04/26/23 01/19/24 (Lexapro) aspirin 81 mg tablet,delayed 81 mg PO DAILY 11/24/23 01/19/24 release (Adult Low Dose Aspirin) <ANGY Leija Last Filed: 04/01/24 15:14> Allergies/Adverse Reactions: Allergies Allergy/AdvReac Type Severity Reaction Status Date / Time adhesive Allergy Unknown RASH Verified 01/19/24 09:27 bacitracin Allergy Unknown Rash Verified 01/19/24 09:27 neomycin Allergy Unknown Rash Verified 01/19/24 09:27 polymyxin B Allergy Unknown Rash Verified 01/19/24 09:27 <Nusrat Franco PA-C - Last Filed: 04/01/24 15:14> Review of Systems Review of Systems: All systems reviewed & are unremarkable except as noted in HPI. <Nusrat Franco PA-C - Last Filed: 04/01/24 15:14> All systems reviewed & are unremarkable except as noted in HPI and below <Nusrat Franco PA-C - Last Filed: 04/01/24 15:14> [facility] Past Medical History Medical History: Medical History Anxiety BRBPR (bright red blood per rectum) Cellulitis of left upper extremity Dairy product intolerance Depression Edema Essential (primary) hypertension FH: total knee replacement HTN (hypertension) Hx of malignant neoplasm of rectum Hx of supraventricular tachycardia Hyperlipidemia Insomnia Obese Primary localized osteoarthrosis of left hip Restless leg Seborrheic keratoses Supraventricular tachycardia Unilateral primary osteoarthritis, right knee Vitamin D deficiency, unspecified <Nusrat Franco PA-C - Last Filed: 04/01/24 15:14> Surgical History Surgical History: Surgical History H/O colonoscopy H/O foot surgery H/O knee surgery History of appendectomy History of total hip replacement S/P tonsillectomy <Nusrat Franco PA-C - Last Filed: 04/01/24 15:14> Family History Family History: Family History Grandparent Hypertension Diabetes mellitus Asthma Heart disease Father Family history of lung cancer Mother Hypertension Heart disease Cerebrovascular accident Other Family history of primary malignant neoplasm of liver <Nusrat Franco PA-C - Last Filed: 04/01/24 15:14> Social History Social History: Social History Smoking packs per day: 1 Smoking cigarettes per day: 20.0 Years smoked: 20 Smoking pack-years: 20.00 Smoking status: Former smoker Tobacco type: cigarettes Smo
[2024-04-01] MEDS: HYDROcodone/acetaminophen (*CRX) 5-325 MG TABLET 1 TAB PO (13:43)
[2024-04-01] MEDS: MORPHINE SULFATE (*CRX) 4 MG/ML INJ IV PUSH (15:10)
[2024-04-01] MEDS: ONDANSETRON INJ 4 MG/2 ML VIAL IV PUSH (15:10)
[2024-04-01] MEDS: diazePAM INJ (*CRX) 10 MG/2 ML SYRINGE 2 MG IV PUSH (16:12)
--- NOTE | 2024-04-01 16:14 | PC.NURSE ---
Pt reporting abd cramping. Pt states she has a hx of colon cancer and this happens sometimes. Pt reports not eating today. EDP Nusrat aware, verbal order for 2mg Valium IV given.
[2024-04-01] MEDS: FAMOTIDINE 20 MG/2 ML VIAL IV PUSH (16:25)
[2024-04-01] MEDS: HYDROmorphone HCL INJ (*CRX) 1 MG/ML SYR 0.5 MG IV PUSH (18:50)
== END 2024-04-01 19:19 | disposition short-term general hospital (02) ==
PROVIDERS: Emergency Provider Physician Assistant; PCP Nurse Practitioner Family
DX: S42.402A Unspecified fracture of lower end of left humerus, initial encounter for closed fracture (principal); S53.105A Unspecified dislocation of left ulnohumeral joint, initial encounter; F41.9 Anxiety disorder, unspecified; F32.A Depression, unspecified; I10 Essential (primary) hypertension; M19.90 Unspecified osteoarthritis, unspecified site; W01.0XXA Fall on same level from slipping, tripping and stumbling without subsequent striking against object, initial encounter
CPT/HCPCS: 73030; 73080; 73562; 96374; 96375; 99285; A4565; A9270; J1170; J2270; J2405; J3360

== ENCOUNTER 2024-10-07 18:26 | Emergency (ER) | payer OTHER, SELFPAY ==
[2024-10-07 18:39] VITALS: BP 149/90; PULSE 80; RESP 18; TEMP 36.2; O2SAT 97
[2024-10-07 19:07] LABS: EDSTREPNEGPOS1 Negative (Negative)
--- OUTSIDE RECORDS SUMMARY | 2024-10-07 19:08 | XMS_ITS | Patient Health Summary ---
Author Organization [facility] Address [address] [place] [address] Care Team Providers Care Answering Service Agent Name Role Phone Gabriela Tomlinson MANAGER LOCATION-WELLNESS COACH Primary Care Provider Note from [facility],non-owned Affiliates and Associated Physician Practices is amultiple site organization consisting of ambulatory clinics and hospital sitesin [place], [place], [place] and [place]. This disclosure is being madepursuant to the Care Everywhere program and may not contain all information available regarding this patient. Last updated 18.[facility] Allergies No known active allergies Medications * Be aware that medications may not be up to date on this document. Alwaysverify current medications with the patient. * amLODIPine (NORVASC) 5 MG tablet(Started 04/30/2018) Take 10 mg by mouth * lisinopril-hydroCHLOROthiazide (PRINZIDE; ZESTORETIC) 20-25 MG tablet Take 1 tablet by mouth once daily * meloxicam (MOBIC) 7.5 MG tablet(Started 06/29/2020) TAKE 1 TABLET BY MOUTH EVERY DAY Active Problems Problem Noted Date Diagnosed Date Left hip pain 06/13/2018 Immunizations * INFLUENZA VACCINE, QUADR. (FLUZONE; FLULAVAL; FLUARIX; AFLURIA QUADRIVALENT; 6MO+), 0.5 ML (IIV4)(Given 07/27/2018) Social History Tobacco Use Types Packs/Day Years Used Date Smoking Tobacco: Former Cigarettes Q uit: 2007 Smokeless Tobacco: Never Alcohol Use Standard Drinks/Week Comments Yes 1 (1 standard drink = 0.6 oz pur e alcohol) few times per week Sex and Gender Information Value Date Recorded Sex Assigned at Not on file Gender Identity Not on file Sexual Orientation Not on file Last Filed Vital Signs Vital Sign Reading Time Taken Comments Blood Pressure 134/92 07/28/2018 8:35 AM FREIGHT RATE SPECIALIST Pulse 83 07/28/2018 8:35 AM FREIGHT RATE SPECIALIST Temperature 36.4 C (97.6 F) 07/28/2018 8:35 AM FREIGHT RATE SPECIALIST Respiratory Rate 20 07/28/2018 8:35 AM FRE[employer] RATE SPECIALIST Oxygen Saturation 97% 07/28/2018 8:35 AM FREIGHT RATE SPECIALIST Inhaled Oxygen Concentration - - Weight 99.8 kg (220 lb) 11/14/2018 1:17 PM CDT Height 175.3 cm (5' 9 ) 11/14/2018 1:17 PM CDT Body Mass Index 32.49 11/14/2018 1:17 PM CDT Medical Devices Implanted Type Area [employer] Supervisor Device Identifier Shelf Expiration Date Model / Serial / Lot Shell Actb 52mm Hip 3 Hl Poly R3 Std Implanted:Qty: 1 on 07/26/2018 by Elbert Fisher MD at [facility] Left: Hip [employer] 01/05/2028 [id number] / / [id number] Description:AB R3 3 HOLD ACET SHELL 52MM--07/31 LG Screw 6.5mm 35mm Hip Actb Canc Sphrcl Implanted:Qty: 1 on 07/26/2018 by Elbert Fisher MD at [facility] Left: Hip [employer] 12/07/2026 [id number] / / [id number] Description:AB REF SPHER HEAD SCREW 35MM--07/31 LG Liner Actb R3 0d 52mm 36mm Xlpe Hip Flxb Implanted:Qty: 1 on 07/26/2018 by Elbert Fisher MD at [facility] Left: Hip [employer] 05/11/2028 [id number] / / [id number] Description:AB R3 0 DEG XLPE ACET LNR 36MM X 52MM --07/31 LG Head Fem +0mm 07/27 Tpr 36mm Hip Oxnm Implanted:Qty: 1 on 07/26/2018 by Elbert Fisher MD at [facility] Left: Hip [employer] 05/13/2028 [id number] / / [id number] Description:AB OXINIUM FEM HD 07/28 36 MM +0 --07/31 LG Polarstem Stem Std Ti/Nathan 3 Non-Jono Implanted:Qty: 1 on 07/26/2018 by Elbert Fisher MD at [facility] Left: Hip 04/07/2025 [id number] / / [id number] Description:AB STANDARD STEM Haja Oxinium Upchrg Implanted:Qty: 1 on 07/26/2018 by Elbert Fisher MD at [facility] Left: Hip [employer] OXINIUM UPCHG SNORTHO BILL ONLY / / Haja H1 Total Hip Implanted:Qty: 1 on 07/26/2018 by Elbert Fisher MD at [facility] Left: Hip [employer] TOTAL HIP H1 / / Procedures * XR PELVIS W LEFT HIP 2VW(Performed 11/14/2018) Performed for Pain of left hip joint * XR PELVIS W LEFT HIP 2VW(Performed 08/15/2018) Performed for Pain of left hip joint * CARDIAC RHYTHM STRIP ORDER(Performed 07/31/2018) * APHERESIS/TRANSFUSION ORDER(Performed 07/31/2018) * BASIC METABOLIC PANEL (CALCIUM TOTAL)(Performed 07/28/2018) * HGB HCT PANEL(Performed 07/28/2018) * HGB HCT PANEL(Performed 07/27/2018) * XR PELVIS 1 OR 2VW(Performed 07/26/2018) Performed for Left hip pain * ENDOTRACHEAL TUBE NOTE(Performed 07/26/2018) * ARTHROPLASTY TOTAL HIP(Performed 07/26/2018) Performed for Diagnosis unknown * TYPE + SCREEN PANEL(Performed 07/16/2018) Performed for Pre-op testing * ERYTHROCYTE SEDIMENTATION RATE(Performed 07/16/2018) Performed for Pre-op testing * C-REACTIVE PROTEIN(Performed 07/16/2018) Performed for Pre-op testing * TRANSFERRIN(Performed 07/16/2018) Performed for Pre-op testing * URINALYSIS REFLEX MICROSCOPIC REFLEX CULTURE(Performed 07/16/2018) Performed for Pre-op testing * COMPREHENSIVE METABOLIC PANEL(Performed 07/16/2018) Performed for Pre-op testing * CBC W AUTO DIFFERENTIAL(Performed 07/16/2018) Performed for Pre-op testing * CULTURE MSSA/MRSA(Performed 07/16/2018) Performed for Pre-op testing * XR PELVIS W LEFT HIP 2VW(Performed 06/13/2018) Performed for Left hip pain * XR PELVIS 1 OR 2VW(Performed 06/13/2018) Performed for Left hip pain * DERMATOPATHOLOGY(Performed 01/20/2016) * DERMATOPATHOLOGY(Performed 01/18/2016) * GROSS + MICRO EXAM(Performed 03/06/2006) Results * XR PELVIS W LEFT HIP 2VW (11/14/2018 1:07 PM CDT) Only the most recent of3 resultswithin the time period is included. Anatomical Region Laterality Modality Radiographic Stephanie ging 11/14/2018 1:20 PM CDT Impressions 11/14/2018 1:20 PM CDT Left hip arthroplasty in near-anatomic position. Reading Radiologist: Nikko Martinez MD on 11/14/2018 at 1:20 PM Narrative 11/14/2018 1:20 PM CDT Examination: Left hip 2 views with AP pelvis History: Left hip pain Findings: 2 views of the left hip and an AP view of the pelvis were performed with comparison made to 08/15/2018. There is a left total hip arthroplasty without periprosthetic fracture or lucency. There is minimal right hip osteoarthritis. No acute fracture of the pelvis is seen. Procedure Note Nikko Martinez MD - 11/14/2018 Examination: Left hip 2 views with AP pelvis History: Left hip pain Findings: 2 views of the left hip and an AP view of the pelvis were performed with comparison made to 08/15/2018. There is a left total hip arthroplasty without periprosthetic fracture or lucency. There is minimal right hip osteoarthritis. No acute fracture of the pelvis is seen. IMPRESSION Left hip arthroplasty in near-anatomic position. Reading Radiologist: Nikko Martinez MD on 11/14/2018 at 1:20 PM Elbert Fisher MD DIAGNOSTIC IMAGING ORDERABLES * CARDIAC RHYTHM STRIP ORDER (07/31/2018 4:48 AM FREIGHT RATE SPECIALIST) Narrative 07/31/2018 4:48 AM FREIGHT RATE SPECIALIST Ordered by an unspecified provider. Scanned Document CARDIAC SERVICES ORD ERABLES * APHERESIS/TRANSFUSION ORDER (07/31/2018 4:46 AM FREIGHT RATE SPECIALIST) Narrative 07/31/2018 4:46 AM FREIGHT RATE SPECIALIST Ordered by an unspecified provider. Scanned Document NURSING - VITAL SIGN S AND ASSESSMENT * (ABNORMAL) HGB HCT PANEL (07/28/2018 4:00 AM FREIGHT RATE SPECIALIST) Only the most recent of2 resultswithin the time period is included. Hemoglobin 10.5(L) 12.0 - 15.6 gm/dL 07/28/2018 5:18 AM FREIGHT RATE SPECIALIST [facility] Hematocrit 33.4(L) 35.9 - 45.5 % 07/28/2018 5:18 AM [facility] Blood BLOOD SPECIMEN / Unknown Lab Venipuncture / Unknown 07/28/2018 4:00 AM FREIGHT RATE SPECIALIST 07/28/2018 4:22 AM FREIGHT RATE SPECIALIST Hi Haddad MD LAB - HEMATOLOGY ORD ERABLES [facility] [address] [place] [address] * (ABNORMAL) BASIC METABOLIC PANEL (CALCIUM TOTAL) (07/28/2018 4:00 AM FREIGHT RATE SPECIALIST) Glucose 115(H) 74 - 106 mg/dL 07/28/2018 4:49 AM [facility] Sodium 142 136 - 145 mmol/L 07/28/2018 4:49 AM FREIGHT RATE SPECIALIST [facility] Potassium 3.7 3.5 - 5.1 mmol/L 07/28/2018 4:49 AM [facility] Chloride 109(H) 98 - 107 mmol/L 07/28/2018 4:49 AM [facility] CO2 27 22 - 31 mmol/L 07/28/2018 4:49 AM [facility] Calcium 8.0(L) 8.5 - 10.1 mg/dL 07/28/2018 4:49 AM [facility] Anion Gap 6(L) 8 - 16 mmol/L 07/28/2018 4:49 AM [facility] BUN 11 7 - 21 mg/dL 07/28/2018 4:49 AM [facility] Creatinine 0.61 0.50 - 1.30 mg/dL 07/28/2018 4:49 AM [facility] eGFR by MDRD >60 >60 mL/min/1.7 3m2 07/28/2018 4:49 AM [facility] eGFR by MDRD >60 >60 mL/min/1.7 3m2 07/28/2018 4:49 AM [facility] Blood BLOOD SPECIMEN / Unknown Lab Venipuncture / Unknown 07/28/2018 4:00 AM FREIGHT RATE SPECIALIST 07/28/2018 4:21 AM FREIGHT RATE SPECIALIST Hi Haddad MD LAB - CHEMISTRY [facility] Organization Address City/State/[facility] Co de Phone Number [facility] [address] [place] [address] * XR PELVIS 1 OR 2 VW (IN PACU) (07/26/2018 10:55 AM FREIGHT RATE SPECIALIST) Only the most recent of2 resultswithin the time period is included. Anatomical Region Laterality Modality Pelvis Radiographic Stephanie ging 07/26/2018 11:4 8 AM FREIGHT RATE SPECIALIST Impressions 07/26/2018 11:48 AM FREIGHT RATE SPECIALIST New left total hip arthroplasty Reading Radiologist: Otis Diaz MD on 07/26/2018 at 11:48 AM Narrative 07/26/2018 11:48 AM FREIGHT RATE SPECIALIST Pelvis, one view portable DATE: 07/26/2018. INDICATION: Postop. FINDINGS: Since 06/13/2018 a new left total hip arthroplasty is normally aligned. There is no fracture or subluxation. Procedure Note Otis Diaz MD - 07/26/2018 Pelvis, one view portable DATE: 07/26/2018. INDICATION: Postop. FINDINGS: Since 06/13/2018 a new left total hip arthroplasty is normally aligned. There is no fracture or subluxation. IMPRESSION New left total hip arthroplasty Reading Radiologist: Otis Diaz MD on 07/26/2018 at 11:48 AM Hi Haddad MD DIAGNOSTIC IMAGING O RDERABLES * CULTURE MSSA/MRSA (07/16/2018 2:11 PM FREIGHT RATE SPECIALIST) Culture Negative for Staphylococcus aureus (MRSA/MSSA) ZAC 07/18/2018 6:59 AM FREIGHT RATE SPECIALIST [facility] MICROBIOLOGY Microbiology SPECIMEN FROM NASAL FOSSAE / Unknown Collection / Unknown 07/16/2018 2:11 PM FREIGHT RATE SPECIALIST 07/16/2018 2:37 PM FREIGHT RATE SPECIALIST Elbert Fisher MD LAB - MICROBIOLOGY ORDERABLES [facility] MICROBIOLOGY [address] [place], [place] [address] [phone] * (ABNORMAL) URINALYSIS REFLEX MICROSCOPIC REFLEX CULTURE (07/16/2018 2:11 PM FREIGHT RATE SPECIALIST) Color UA Straw Straw, Yellow 07/16/2018 2:56 PM FREIGHT RATE SPECIALIST [facility] Clarity UA Clear Clear 07/16/2018 2:56 PM FREIGHT RATE SPECIALIST [facility] Glucose UA Negative Negative 07/16/2018 2:56 PM FREIGHT RATE SPECIALIST [facility] Bilirubin UA Negative Negative 07/16/2018 2:56 PM FREIGHT RATE SPECIALIST [facility] Ketone UA Negative Negative 07/16/2018 2:56 PM FREIGHT RATE SPECIALIST [facility] Specific [place] UA 1.004(L) 1.005 - 1.030 07/16/2018 2:56 PM FREIGHT RATE SPECIALIST [facility] Blood UA Negative Negative 07/16/2018 2:56 PM FREIGHT RATE SPECIALIST [facility] pH UA 7.0 5.0 - 8.0 pH 07/16/2018 2:56 PM FREIGHT RATE SPECIALIST [facility] Protein UA Negative Negative 07/16/2018 2:56 PM FREIGHT RATE SPECIALIST [facility] Urobilinogen UA Negative Negative mg/dL 07/16/2018 2:56 PM FREIGHT RATE SPECIALIST [facility] Nitrite UA Negative Negative 07/16/2018 2:56 PM FREIGHT RATE SPECIALIST [facility] Leukocyte UA Negative Negative 07/16/2018 2:56 PM FREIGHT RATE SPECIALIST [facility] Urine Microscopy Urine microscopy not indicated 07/16/2018 2:56 PM FREIGHT RATE SPECIALIST [facility] Reflex Status Culture not indicated 07/16/2018 2:56 PM FREIGHT RATE SPECIALIST [facility] Urine URINE SPECIMEN OBTAINED BY CLEAN CATCH PROCEDURE / Unknown Collection / Unknown 07/16/2018 2:11 PM FREIGHT RATE SPECIALIST 07/16/2018 2:37 PM FREIGHT RATE SPECIALIST Narrative [facility] - 07/16/2018 2:56 PM FREIGHT RATE SPECIALIST Elbert Fisher MD LAB - URINALYSIS OR DERABLES Performing Organization Address City/[facility]/ZIP Co de Phone Number [facility] [address] [place] [address] * C-REACTIVE PROTEIN (07/16/2018 2:11 PM FREIGHT RATE SPECIALIST) Pathologist [facility] C-Reactive Protein <0.29 <0.30 mg/dL 07/16/2018 3:19 PM FREIGHT RATE SPECIALIST [facility] Blood BLOOD SPECIMEN / Unknown Venipuncture / Unknown 07/16/2018 2:11 PM FREIGHT RATE SPECIALIST 07/16/2018 2:37 PM FREIGHT RATE SPECIALIST Elbert Fisher MD LAB - CHEMISTRY ORD ERABLES Performing Organization Address [facility] Co de Phone Number [facility] [address] [place] [address] * TRANSFERRIN (07/16/2018 2:11 PM FREIGHT RATE SPECIALIST) Pathologist [facility] Transferrin 279 250 - 380 mg/dL 07/16/2018 3:19 PM FREIGHT RATE SPECIALIST [facility] Blood BLOOD SPECIMEN / Unknown Venipuncture / Unknown 07/16/2018 2:11 PM FREIGHT RATE SPECIALIST 07/16/2018 2:37 PM FREIGHT RATE SPECIALIST Elbert Fisher MD LAB - CHEMISTRY ORD ERABLES Performing Organization Address [facility] Co de Phone Number [facility] [address] [place] [address] * TYPE + SCREEN PANEL (07/16/2018 2:11 PM FREIGHT RATE SPECIALIST) Pathologist [facility] ABO A 07/16/2018 3:11 PM FREIGHT RATE SPECIALIST [facility] Rh Type Positive 07/16/2018 3:11 PM FREIGHT RATE SPECIALIST [facility] Comment:History checked. Col lect retype. Antibody Screen Negative 07/16/2018 3:11 PM FREIGHT RATE SPECIALIST [facility] Blood Bank BLOOD SPECIMEN / Unknown Venipuncture / Unknown 07/16/2018 2:11 PM FREIGHT RATE SPECIALIST 07/16/2018 2:35 PM FREIGHT RATE SPECIALIST Kris Malagon MD LAB - BLOOD BANK O RDERABLES Performing Organization Address [facility]/ZIP Co de Phone Number [facility] [address] [place] [address] * ERYTHROCYTE SEDIMENTATION RATE (07/16/2018 2:11 PM FREIGHT RATE SPECIALIST) [facility] Erythrocyte Sedimentation Rate Automated 12 0 - 30 MM/HR 07/16/2018 2:59 PM FREIGHT RATE SPECIALIST [facility] Blood BLOOD SPECIMEN / Unknown Venipuncture / Unknown 07/16/2018 2:11 PM FREIGHT RATE SPECIALIST 07/16/2018 2:37 PM FREIGHT RATE SPECIALIST Elbert Fisher MD LAB - HEMATOLOGY OR DERABLES Performing Organization Address [facility] Co de Phone Number [facility] [address] [place] [address] * (ABNORMAL) CBC W AUTO DIFFERENTIAL (07/16/2018 2:11 PM FREIGHT RATE SPECIALIST) Pathologist [facility] WBC 6.9 4.4 - 10.7 x10E9/L 07/16/2018 2:53 PM FREIGHT RATE SPECIALIST [facility] WBC Corrected x10E9/L 07/16/2018 2:53 PM FREIGHT RATE SPECIALIST [facility] RBC 5.12 3.80 - 5.20 x10E12/L 07/16/2018 2:53 PM [facility] Hemoglobin 14.7 12.0 - 15.6 gm/dL 07/16/2018 2:53 PM [facility] Hematocrit 45.0 35.9 - 45.5 % 07/16/2018 2:53 PM [facility] MCV 87.9 80.7 - 98.3 fl 07/16/2018 2:53 PM FREIGHT RATE SPECIALIST [facility] MCH 28.7 26.7 - 34.0 pg 07/16/2018 2:53 PM [facility] MCHC 32.7 30.8 - 35.9 gm/dL 07/16/2018 2:53 PM [facility] Platelet Count 299 153 - 416 x10E9/L 07/16/2018 2:53 PM [facility] RDW-CV 13.6 12.1 - 14.9 % 07/16/2018 2:53 PM [facility] MPV 10.4 9.4 - 12.9 fl 07/16/2018 2:53 PM [facility] Neutrophils % 73.8(H) 44.0 - 73.0 % 07/16/2018 2:53 PM [facility] Lymphocytes % 15.7(L) 20.0 - 43.0 % 07/16/2018 2:53 PM [facility] Monocytes % 8.9 5.0 - 13.0 % 07/16/2018 2:53 PM [facility] Eosinophils % 0.9 0.0 - 6.0 % 07/16/2018 2:53 PM [facility] Basophils % 0.4 0.0 - 2.0 % 07/16/2018 2:53 PM [facility] Immature Granulocytes 0.3 0 - 1 % 07/16/2018 2:53 PM [facility] Neutrophil Absolute 5.07 2.01 - 7.14 x10E9/L 07/16/2018 2:53 PM [facility] Lymphocytes Absolute 1.08 1.07 - 3.94 x10E9/L 07/16/2018 2:53 PM [facility] Monocytes Absolute 0.61 0.26 - 1.07 x10E9/L 07/16/2018 2:53 PM [facility] Eosinophils Absolute 0.06 0 - 0.47 x10E9/L 07/16/2018 2:53 PM [facility] Basophils Absolute 0.03 0 - 0.08 x10E9/L 07/16/2018 2:53 PM [facility] Immature Granulocytes Absolute 0.02 0.00 - 0.06 x10E9/L 07/16/2018 2:53 PM [facility] nRBC Auto 0 /100 WBC 07/16/2018 2:53 PM [facility] Blood BLOOD SPECIMEN / Unknown Venipuncture / Unknown 07/16/2018 2:11 PM FREIGHT RATE SPECIALIST 07/16/2018 2:37 PM [facility] Elbert Fisher MD LAB - HEMATOLOGY OR DERABLES [facility] [address] [place] [address] * COMPREHENSIVE METABOLIC PANEL (07/16/2018 2:11 PM FREIGHT RATE SPECIALIST) [facility] Glucose 90 74 - 106 mg/dL 07/16/2018 3:19 PM [facility] Sodium 140 136 - 145 mmol/L 07/16/2018 3:19 PM [facility] Potassium 4.1 3.5 - 5.1 mmol/L 07/16/2018 3:19 PM [facility] Chloride 107 98 - 107 mmol/L 07/16/2018 3:19 PM [facility] CO2 25 22 - 31 mmol/L 07/16/2018 3:19 PM [facility] Calcium 8.5 8.5 - 10.1 mg/dL 07/16/2018 3:19 PM [facility] Anion Gap 8 8 - 16 mmol/L 07/16/2018 3:19 PM [facility] BUN 21 7 - 21 mg/dL 07/16/2018 3:19 PM [facility] Creatinine 0.76 0.50 - 1.30 mg/dL 07/16/2018 3:19 PM [facility] Alkaline Phosphatase 96 38 - 126 U/L 07/16/2018 3:19 PM [facility] ALT 27 13 - 61 U/L 07/16/2018 3:19 PM [facility] AST 15 5 - 40 U/L 07/16/2018 3:19 PM [facility] Protein Total 7.2 6.4 - 8.2 gm/dL 07/16/2018 3:19 PM [facility] Albumin 3.8 3.4 - 5.0 gm/dL 07/16/2018 3:19 PM [facility] Bilirubin Total 0.6 0.2 - 1.0 mg/dL 07/16/2018 3:19 PM [facility] eGFR by MDRD >60 >60 mL/min/1.7 3m2 07/16/2018 3:19 PM FREIGHT RATE SPECIALIST [facility] eGFR by MDRD >60 >60 mL/min/1.7 3m2 07/16/2018 3:19 PM FREIGHT RATE SPECIALIST [facility] Blood BLOOD SPECIMEN / Unknown Venipuncture / Unknown 07/16/2018 2:11 PM FREIGHT RATE SPECIALIST 07/16/2018 2:37 PM FRE[employer] RATE SPECIALIST Elbert Fisher MD LAB - CHEMISTRY ORD ERABLES [facility] [address] [place] [address] * PATHOLOGY TISSUE FOR DERMATOLOGY (01/20/2016 12:00 AM CDT) Only the most recent of2 resultswithin the time period is included. Result CASE: [id number] PATIENT: ARCHANA WILCOX PATHOLOGIC DIAGNOSIS: Left lower abdomen: SEBORRHEIC KERATOSIS, INFLAMED PRESENT AT MARGIN CLINICAL DATA: Changing lesion. Check margins. GROSS DESCRIPTION: Received is one formalin filled container labeled with the patients name and designated left abdomen. The specimen consists of an ellipse measuring [id number] and is oriented with the suture/notch at the 12 o'clock position. The 12 to 6 o'clock margin is inked green. The 6 o'clock to 12 o'clock margin is inked black. The 12 o'clock tip is submitted in cassette 1. The 6 o'clock tip is submitted in cassette 2. The remainder of the ellipse is serially sectioned and submitted in cassettes 3. Jar 0. MICROSCOPIC DESCRIPTION: There is hyperkeratosis, parakeratosis, papillomatosis, and acanthosis of the epidermis. 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 Lesion is present at both tips of the specimen. Electronically signed out by Jennifer Hernández M.D. 01/21/2016 12:54:17PM [facility] Comment: Performed at: Dermatopathology Laboratory [facility] - Department of Dermatology [address] [place] [address], [address] [place] [address] Phone number: [phone] FAX: [phone] 01/20/2016 01/20/2016 Reese Bailey MD LAB - PATHOLOGY/CYTO LOGY ORDERABLES [facility] [address] [facility]. 5th [place] [address], [facility] [phone] * GROSS + MICRO EXAM (03/06/2006 10:00 AM CDT) Result CASE NUMBER [id number] Comment: ORDERING PHYSICIAN ALE PISANO SPECIMEN TYPE Lipoma-abdomen Date 03/06/2006 Physician Cory Pisano Gross Description The specimen is received in a formalin-filled container labeled with the patient's name and lipoma, abdomen . It consists of irregular yellow holt tissue fragments measuring approximately 6 x 6 x 0.8 cm. in aggregate. Color Developer sections are submitted in a single cassette. SK/bk Microscopic Exam Microscopic examination reveals lobular fragments of tissue composed of mature fat. Scattered incomplete, partially hyalinized fibrous septae are seen. No evidence of malignancy or atypia is seen. RT/na Diagnosis I. Tissue clinically from abdomen -- Lipoma RT/na Turf Keeper na Pathologist Raul Henry M.D. [place]. 03/07/2006 1106 <1> CPT code 94705 MISCELLANEOUS SAMPLES / Unknown 03/06/2006 10:00 AM CDT 03/06/2006 10:00 AM CDT Historical Provider LAB - PATHOLOGY/C YTOLOGY ORDERABLES Care Teams Answering Service Agent Relationship Specialty Start Date End Date Gabriela Tomlinson, MANAGER LOCATION-WELLNESS COACH [address] [place] [phone] PCP - General 11/13/18
--- OUTSIDE RECORDS SUMMARY | 2024-10-07 19:09 | XMS_ITS | Encounter Summary ---
Author Organization [facility] Address [address] [facility] [place] [address] Care Team Providers Care Video Tape Editor Name Role Phone Reese Bailey MD Primary Care Provider [phone] Gabriela Tomlinson APRN-DEAN OF WOMEN Primary Care Provider Reason for Visit * Reason Onset Date Comments General 07/30/2018 Encounter Details Date Type Department Care Team (Late st Contact Info) Description 07/30/2018 Telephone [facility] Orthopedics [address] [place] [phone] Sofy Kirby General Social History Tobacco Use Types Packs/Day Years Used Date Smoking Tobacco: Former Cigarettes Q uit: 2006 Smokeless Tobacco: Never Alcohol Use Standard Drinks/Week Comments Yes 1 (1 standard drink = 0.6 oz pur e alcohol) few times per week Sex and Gender Information Value Date Recorded Sex Assigned at Not on file Gender Identity Not on file Sexual Orientation Not on file documented as of this encounter Functional Status Functional Status Response Date of Assess ment Is person deaf or have serious hearing difficult y? No 07/27/2018 Is person blind or have serious difficulty seein g? No 07/27/2018 Does person have serious dif ficulty walking/climbing stairs? Yes 07/27/2018 Does person have difficulty dressing/bathing? No 07/27/2018 Does person have difficulty doing errands alone? No 07/27/2018 Cognitive Status Response Date of Assessm ent Does person have difficulty concentrating/remembering/making decisions? No 07/27/2018 documented as of this encounter Miscellaneous Notes * Telephone Encounter - Kofi Sofy - 07/30/2018 9:12 AM CST called requesting to talk with Dr. Fisher or nurse, patient states that she had previously left a message but never received a call back. would like a call back @[phone] concerning her home healthcare. NG VALIDATOR documented in this encounter Plan of Treatment Not on file documented as of this encounter Visit Diagnoses Not on filedocumented in this encounter Care Teams Video Tape Editor Relationship Specialty Start Date End Date Reese Bailey MD [address] [place] [address] PCP - General 07/26/18 11/12/18 Gabriela Tomlinson APRN-DEAN OF WOMEN [address] [place] [phone] PCP - General 11/13/18 documented as of this encounter
--- OUTSIDE RECORDS SUMMARY | 2024-10-07 19:09 | XMS_ITS | Continuity of Care Document ---
Author Name [facility] Organization [facility] Care Team Providers Care Product Consultant Name Role Phone DOD-VA Unavailable Unavailable Problems Combined list of problems from Department of Defense and Veterans Affairs facilities. It does not include entries that were removed or entered in error. 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 DoD metrorrhagia Active Condition trial o f OCP's, CBC to r/o anemia, follow up as needed DoD essential hypertension Active Condition complete 5 day BP check DoD visit for: screening exam malignant neoplasm breast Inactive Condition DoD visit for: screening exam for malignant neoplasm cervix Inactive Condition DoD excessive bleeding during period (menorrhagia) Active Condition DoD visit for: laboratory Inactive Condition DoD menopause Active Condition DoD depression Active Condition DoD Medications Combined list of outpatient medications from Department of Defense and Veterans Affairs facilities.Medications provided include 1) outpatient medications from the last 15 months, and 2) patient-reported medications. Medication Details Route Status Patient Instructions Prescription Expires Prescription Number Last Dispense Date Ordering Provider Order Date Order Qty Source AMOX TR-POTASSIU M CLAVULANATE (AMOXICILLI N/POTASSIUM CLAV), 875-125 MG, TABLET, ORAL, [employer] [facility], 20 ea. BOTTLE Active [id number] 4 2023 10 Pharmac y Data Transac tion Service Facilit y DOXYCYCLINE HYCLATE (doxycyclin e hyclate), 100 MG, CAPSULE, ORAL, [employer], 500 ea. BOTTLE Active [id number] 4 2023 10 Pharmac y Data Transac tion Service Facilit y DOXYCYCLINE HYCLATE (doxycyclin e hyclate), 100 MG, TABLET, ORAL, [employer], 50 ea. BOTTLE Active [id number] 2023 20 Pharmac y Data Transac tion Service Facilit y escitalopra m 10 mg tablet See Instruct ions, # 90 EA, 1 total refill(s ), Acute Complet ed 10/06/2023 3 2023 90.0 Ambulat ory Pharmac y ESCITALOPRA M OXALATE (escitalopr am oxalate), 10 MG, TABLET, ORAL, [facility], 1000 ea. BOTTLE Active [id number] 4 2023 90 Pharmac y Data Transac tion Service Facilit y ESCITALOPRA M OXALATE (escitalopr am oxalate), 10 MG, TABLET, ORAL, [facility] [facility], 1000 ea. BOTTLE Active [id number] 4 2023 90 Pharmac y Data Transac tion Service Facilit y FAMOTIDINE (FAMOTIDINE ), 20MG, TABLET, ORAL, [employer], 100 ea. BOTTLE Active [id number] 4 2023 30 Pharmac y Data Transac tion Service Facilit y HYDROCHLORO THIAZIDE (HYDROCHLOR OTHIAZIDE), 12.5MG, TABLET, ORAL, ACTAVIS ELIZABE, 100 ea. BOTTLE Active [id number] 2023 90 Pharmac y Data Transac tion Service Facilit y metroNIDAZO LE 1% topical gel APPLY TO RED AREAS ON FACE DAILY, # 60 g, 3 total refill(s ), Acute Complet ed 02/09/2023 2 2022 60.0 Ambulat ory Pharmac y NIFEDIPINE ER (nifedipine ), 60 MG, TAB ER 24, ORAL, [employer] [facility], 100 ea. BOTTLE Active [id number] 4 2023 90 Pharmac y Data Transac tion Service Facilit y NIFEDIPINE ER (nifedipine ), 60 MG, TAB ER 24, ORAL, [employer] [facility], 100 ea. BOTTLE Active [id number] 4 2023 90 Pharmac y Data Transac tion Service Facilit y NIFEDIPINE ER (nifedipine ), 60 MG, TAB ER 24, ORAL, [employer] [facility], 100 ea. BOTTLE Cancele d [id number] : 2023 0 Pharmac y Data Transac tion Service Facilit y NIFEDIPINE ER (nifedipine ), 60 MG, TAB ER 24, ORAL, [facility] [facility], 300 ea. BOTTLE Active [id number] 4 2023 90 Pharmac y Data Transac tion Service Facilit y OSELTAMIVIR PHOSPHATE (oseltamivi r phosphate), 75 MG, CAPSULE, ORAL, AMNEAL [employer]ARMACE, 10 ea. BLIST PACK Active [id number] 4 2023 10 Pharmac y Data Transac tion Service Facilit y PREDNISONE (prednisone ), 20 MG, TABLET, ORAL, NOVITIUM/AN I PH, 500 ea. BOTTLE Active [id number] 2023 20 Pharmac y Data Transac tion Service Facilit y PROAIR RESPICLICK (ALBUTEROL SULFATE), 90 MCG, AER POW BA, INHALATION, [employer] [facility], 1 ea. AER W/ADAP Active [id number] 4 2023 1 Pharmac y Data Transac tion Service Facilit y ROSUVASTATI N CALCIUM (rosuvastat in calcium), 5 MG, TABLET, ORAL, [employer] [facility], 90 ea. BOTTLE Active [id number] 4 2023 90 Pharmac y Data Transac tion Service Facilit y Allergies, Adverse Reactions, Alerts Combined list of allergies from Department of Defense and Veterans Affairs facilities. It does not include entries that were removed or entered in error. Substance Category Reaction Severity Reaction type Status Date Reported Comments Source No Known Allergies Drug allergy (disorder) active 08/22/[address] [place] [address] Toney RASCON [facility]) Encounters Combined list of: 1) Encounters from Department of Veterans Affairs facilities going backup to the last 18 months, not all VA inpatient encounters are included; 2) Encounters from the Department of Defense facilities going backup to 280 months. Location Location Details Encounter Type Encounter Number Reason For Visit Attending Provider ADM Date DC Date Status Disposition Source [address] [place] [address] Toney RASCON ([facility]Fam andrea Practice Non-GME FHI2) OUTPATIENT [id number] [place] SE ISSUE/E TC PT WOULDN' T DISCLOS E TO APPT. ADVANCE AGENT? JANIS OJEDA 06/14 Released w/o Limitations [address] [place] [address] Toney RASCON ([facility])(F amily Practic e Non-GME FHI2) [address] [place] [address] [employer] [facility] andrea Practice Non-GME FHI1) OUTPATIENT [id number] annual pap SRI COX 07/11 Released w/o Limitations [address] [place] [address] [employer] [facility])(F amily Practic e Non-GME FHI1) [address] [place] [address] [employer] ([facility]Fam andrea Practice Non-GME FHI2) OUTPATIENT [id number] growth on stomach JANIS OJEDA Rosa Isela 02/09 Released w/o Limitations [address] [place] [address] [employer] [facility])(F amily Practic e Non-GME FHI2) [address] [place] [address] [employer] ([facility] andrea Practice Non-GME FHI2) TELE CONSULT [id number] needs ultraso und ordered KELLI BUTLER 02/[address] [place] [address] [employer] [facility])(F amily Practic e Non-GME FHI2) [address] [place], [place] [address] [facility])([facility] andrea Practice Non-GME FHI2) OUTPATIENT [id number] swollen lymph nodes CHELSEY CARBAJAL 02/23 Released w/o Limitations [address] [place] [address] [employer] [facility])(F amily Practic e Non-GME FHI2) [address] [place], [place] [address] [facility])(Fam andrea Practice Non-GME FHI2) TELE CONSULT [id number] U/S RESULTS KELLI BUTLER 03/[address] [place], [place] [address] [facility])(F amily Practic e Non-GME FHI2) [address] [place] [address])(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 Procedure Procedure Type Code Date Perfomer Comments Sourc e No data available for this section Ambulato ry Pharmacy SCREENING PAPANICOLAOU SMEAR; OBTAINING, PREPARING AND CONVEYANCE OF CERVICAL OR VAGINAL SMEAR TO LABORATORY 5 [facility] SCREENING PAPANICOLAOU SMEAR; OBTAINING, PREPARING AND CONVEYANCE OF CERVICAL OR VAGINAL SMEAR TO LABORATORY 5 [facility] INFUSION, NORMAL SALINE SOLUTION , 1000 CC 5 DoD INFUSION, NORMAL SALINE SOLUTION, 250 CC 4 DoD Screening papanicolaou smear; obtaining, preparing and conveyance of cervical or vaginal smear to laboratory 5 THOMAS BENITESERINE RICHAR [facility] Cervical Pap Smear Cervical Pap Smear [id number] 5 SRI COX [facility] Screening papanicolaou smear; obtaining, preparing and conveyance of cervical or vaginal smear to laboratory 5 [facility] COX DoD Social History Combined list of available smoking, tobacco, and other social history from Department of Defense and Veterans Affairs facilities. Social History Type Response Date Comment Sourc e This section is an empty social history section. [facility] Assessment and Plan Combined list of future care activities from Department of Defense and Veterans Affairs facilities (e.g., assessment and plan notes, appointments, orders, and referrals). Additional future care activities may be listed in the Plan of Care section. Result Assessment and Plan Date Source Assessment and Plan No data available for this section 10/08/2024 Ambulatory Pharmacy Functional Status Combined list of recent functional and cognitive assessments recorded at Department of Defense and Veterans Affairs (ME).VA Functional Ripley Measurement (FIM) Scale: 1 = Total Assistance (Subject = 0% +), 2 = Maximal Assistance (Subject = 25% +), 3 = Moderate Assistance (Subject = 50% +), 4 = Minimal Assistance (Subject = 75% +), 5 = Supervision, 6 = Modified Ripley (Device), 7 = Complete Ripley (Timely, Safely). Assessment Date/Time Source Assessment Type Assessment Skill Assessment Score Assessment Details No data available for this section
--- OUTSIDE RECORDS SUMMARY | 2024-10-07 19:09 | XMS_ITS | Referral Summary ---
Author Organization [facility] [address] Address [address] [place] [address] Care Team Providers Care Presidential Support Specialist Name Role Phone Bushra Gabriela Gonzales DATA WAREHOUSE MANAGER Primary Care Provider + Encounters Date Type Department Care Team Description 08/22/2024 11:18 AM NUCLEAR RADIATION ENGINEER - 08/22/2024 11:59 PM NUCLEAR RADIATION ENGINEER Hospital Encounter [facility] [address] [place] [address] Closed fracture of capitellum of distal humerus, left, initial encounter Discharge Disposition: Discharge to home or self care 08/22/2024 11:20 AM NUCLEAR RADIATION ENGINEER Office Visit [facility] [address] [facility] [address] [place] [address] [place] [address] Romario Dorsey MD Closed fracture of capitellum of distal humerus, left, initial encounter (Primary Dx) from Last 3 Months Allergies Active Allergy Reactions Criticality Noted Date Comments Latex Rash Medium 04/25/2024 Medications cholecalciferol (VITAMIN D3) 2,000 unit capsule take 1 by oral route once 0 0 5 Active glucosamine/cho ndro knowles A/C/Mn (GLUCOSAMINE-CH ONDROITIN COMPLX ORAL) Take by mouth Act rajesh NIFEdipine XL 60 mg 24 hr tablet 2 Active famotidine (PEPCID) 20 mg tablet Take 1 tablet (20 mg total) by mouth daily 4 Active hydroCHLOROthia zide (HYDRODIURIL) 12.5 mg tablet Take 1 tablet (12.5 mg total) by mouth daily 4 Active rosuvastatin (CRESTOR) 5 mg tablet Take 1 tablet (5 mg total) by mouth nightly at bedtime. 4 Active escitalopram (LEXAPRO) 10 mg tablet Take 1 tablet (10 mg total) by mouth daily 4 Active semaglutide (WEGOVY) 0.5 mg/0.5 mL auto-injector Inject 0.5 mL (0.5 mg total) under the skin every [address] (VOLTAREN) 75 mg EC tablet Take 1 tablet twice a day by oral route as needed. 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 Herpes zoster 12/06/2022 Hordeolum externum of left upper eyelid 11/30/19 Abscess of skin 11/03/2022 Retained foreign body of foot 10/09/2022 Obesity 10/06/2022 Neuroma of foot 09/18/2022 Swelling of lower leg 03/10/2022 Tinea pedis 03/10/2022 Abscess of foot 02/28/2022 Puncture wound of foot 02/28/2022 Decreased thyroid stimulating hormone (TSH) leve l 01/20/2022 Low back pain 01/13/2021 Effusion of right knee 11/02/2018 Left hip pain 06/13/2018 Supraventricular tachycardia 08/26/2015 Overview (11/17/2016): SVT Hypertension 05/13/2015 Overview (11/17/2016): HTN (hypertension) Paroxysmal supraventricular tachycardia 05/13/20 15 Overview (11/17/2016): PSVT (paroxysmal supraventricular tachycardia) Social History Tobacco Use Types Packs/Day Years Used Date Smoking Tobacco: Former Cigarettes Q uit: 2006 Smokeless Tobacco: Never Tobacco Cessation:Counseling Given: Not Answered Alcohol Use Standard Drinks/Week Comments Yes 0 (1 standard drink = 0.6 oz pur e alcohol) AUDIT-C Answer Date Recorded Q1: How often do you have a drink containing alc ohol? 2-3 times a week 04/02/2024 Q2: How many drinks containi ng alcohol do you have on a typical day when you are drinking? 1 or 2 04/02/2024 Q3: How often do you have si x or more drinks on one occasion? Never 04/02/2024 Personal Safety Answer Date Recorded Have you ever been in or are you currently in a harmful physical or emotional relationship or is someone making you feel afraid or unsafe? Denies 04/02/2024 Comments No Sex and Gender Information Value Date Recorded Sex Assigned at Not on file Legal Sex Female 7:08 PM NUCLEAR RADIATION ENGINEER Gender Identity Not on file Sexual Orientation Not on file Last Filed Vital Signs Vital Sign Reading Time Taken Comments Blood Pressure 136/84 06/03/2024 11:28 AM CDT Pulse 90 06/03/2024 11:28 AM CDT Temperature 36.6 C (97.9 F) 04/03/2024 12:18 PM CDT Respiratory Rate 18 04/03/2024 12:18 PM CDT Oxygen Saturation 96% 06/03/2024 11:28 AM CDT Inhaled Oxygen Concentration - - Weight 111.1 kg (245 lb) 06/03/2024 11:28 AM CDT Height 172.7 cm (5' 8 ) 06/03/2024 11:28 AM CDT Body Mass Index 37.25 06/03/2024 11:28 AM CDT Plan of Treatment Not on file Medical Devices Implanted Type Area Brake Engineer Device Identifier Shelf Expiration Date Model / Serial / Lot Synthes Screw Bone Compression Cannulated Long Thread 3.0x34mm Ti [id number] - [id number] Implanted:Qty: 1 on 04/02/2024 by Romario Dorsey MD at [facility] Synthes I [id number] / / Synthes Screw Bone Compression Cannulated Long Thread 3.0x22mm Ti . - [id number] Implanted:Qty: 1 on 04/02/2024 by Romario Dorsey MD at [facility] [employer] .222 / / Synthes Screw Bone Compression Cannulated Long Thread 3.0x20mm Ti - [id number] Implanted:Qty: 1 on 04/02/2024 by Romario Dorsey MD at [facility] [employer] / / Procedures Procedure Name Priority Date/Time Associated Diagnosis Comments XR ELBOW LEFT 3 OR MORE VIEWS Schedule Routine, Read Routine (OP Routine) 08/22/2024 11:35 AM NUCLEAR RADIATION ENGINEER Closed fracture of capitellum of distal humerus, left, initial encounter from Last 3 Months Results * XR Elbow Left 3 or More Views (08/22/2024 11:35 AM NUCLEAR RADIATION ENGINEER) Anatomical Region Laterality Modality Upper Extremities, Elbow Left Compute d Radiography 08/22/2024 11:3 7 AM NUCLEAR RADIATION ENGINEER Impressions 08/22/2024 11:37 AM NUCLEAR RADIATION ENGINEER 1. Healing reduced and internally fixated left elbow capitellar fracture. Electronically signed by: Brant Mccall M.D. Narrative 08/22/2024 11:37 AM NUCLEAR RADIATION ENGINEER EXAMINATION: XR ELBOW LEFT 3 OR MORE VIEWS HISTORY: Left capitellar fracture follow-up FINDINGS: 3 view examination of the left elbow is read with comparison to 06/13/2024. Healing reduced and internally fixated left patellar fracture with bones in near-anatomic alignment. The fracture is stabilized by 3 screws. Implants are intact. There is an unchanged large elbow joint effusion and mild surrounding soft tissue swelling. No new fracture. Mild tricompartmental osteoarthritis. Procedure Note Brant Espitia MD - 08/22/2024 EXAMINATION: XR ELBOW LEFT 3 OR MORE VIEWS HISTORY: Left capitellar fracture follow-up FINDINGS: 3 view examination of the left elbow is read with comparison to 06/13/2024. Healing reduced and internally fixated left patellar fracture with bones in near-anatomic alignment. The fracture is stabilized by 3 screws. Implants are intact. There is an unchanged large elbow joint effusion and mild surrounding soft tissue swelling. No new fracture. Mild tricompartmental osteoarthritis. IMPRESSION: 1. Healing reduced and internally fixated left elbow capitellar fracture. Electronically signed by: Brant Mccall M.D. Rebecca Amarjit Dorsey MD IMG XR PROCEDURES Final Result from Last 3 Months Insurance [facility] WORKERS COMPENSATION GENERIC [employer] Advance Directives For more information, please contact: [phone] * Full Code (Latest Code Status on File) Date Activated Date Inactivated Comments 04/02/2024 1:39 PM 04/03/2024 5:23 PM * Full Code Date Activated Date Inactivated Comments 04/02/2024 1:01 AM 04/02/2024 1:39 PM Care Teams Presidential Support Specialist Relationship Specialty Start Date End Date Gabriela Tomlinson NP PCP - General Nurse Practitioner 10/25/18
--- OUTSIDE RECORDS SUMMARY | 2024-10-07 19:09 | XMS_ITS | Data Portability ---
Author Organization [place] [facility] [employer], Main Office Address [address] [place] [address] Care Team Providers Care Missing Persons Investigator Name Role Phone GABRIELA LOPEZ Primary Care Provider GABRIELA LOPEZ Referring Provider [phone] Assessment Encounter Date Assessment Date Assessment LastModified by Organization Details LastModified Time 12/14/2022 12/14/2022 D/w pt and about her findings and further plan of care. Meds as directed. OTC Benadryl allergy po q6-8hrs prn as directed. Routine skin care explained in detail. Educated about alarming symptoms to monitor at home and call us back or get checked in ED in that case. Pt verbalized understanding it. F/u as directed. Not available 12/14/2022 17:14:14 05/16/2023 05/16/2023 D/w pt about her findings and further plan of care. Meds as directed. OTC symptomatic Rx explained in detail. Very good liquid intake explained. Proper hand hygiene explained. Educated about alarming symptoms to monitor at home and call us back Or get checked in ED if any concerns. F/u as directed. [email or web address] Not available 05/16/2023 16:41:33 Plan of Treatment Reminders Order Date Submit Date Provider Last Modified By Organization Details Last Modified Time Details Appointments None recorded. Lab None recorded. Referral None recorded. Procedures None recorded. Surgeries None recorded. Imaging None recorded. Medication Orders azithromyci n 250 mg tablet 2022 023 [facility] #[id number], [address], [place], [id number], 16:54:32 Medrol (Jude) 4 mg tablets in a dose pack 2022 023 [facility] #26089, [address], [place], [place], [id number], 3 16:54:30 benzonatate 200 mg capsule 2022 023 [facility] #92671, [address], [place], [place], [id number], 16:54:28 Wegovy 0.25 mg/0.5 mL subcutaneou s pen injector 2022 023 [email or web address] [facility] #71902, [address], [place], [place], [id number], 14:24:40 valacyclovi r 1 gram tablet 2022 023 [facility] #50070, [address], [place], [place], [id number], 3 16:31:09 gabapentin 300 mg capsule 2022 023 [facility] #12081, [address], [place], [place], [id number], 3 16:51:57 valacyclovi r 1 gram tablet 2022 023 [facility] #75448, [address], [place], [place], [id number], 3 16:31:09 gabapentin 300 mg capsule 2022 023 [email or web address] [facility] #37738, [address], [place], [place], [id number], 3 13:04:16 prednisone 20 mg tablet 2022 023 [email or web address] [facility] #58497, [address], [place], [place], [id number], 3 17:14:40 Patient TargetsNo targets recorded. Patient Instructions Encounter Date Encounter Id Patient Instructions Last Modified By Organization Details Last Modified Time 12/06/2022 [id number] FU prn. [email or web address] Not available 12/06 13:20:42 08/18/2023 [id number] fu in 2-4 weeks for bp, labs, etc with new provider. 08/18/23 pt aware of gloria departure. [email or web address] Not available 08/18/2023 14:04:49 Reason for Referral None Reported. Results Created Date Observation Date Name Description Value Unit Range Abnormal Flag Note LastModifiedBy Organization Detail LastModifiedTime Result Notes None recorded. Problems Name Problem SNOMED Code Status Onset Date Resolution Date Notes Provider Name and Address Organization Details Recorded Time Thyroid stimulatin g hormone level below reference range 539107482 Active 2021 Not Available [facility] 3 00:45:27 Puncture wound of foot 69945813 Active 2021 Not Available [facility] 3 00:45:27 Low back pain 723570388 Active 2020 Not Available [facility] 3 00:45:27 Foreign body of foot 657915135 Active 2022 Not Available [facility] 3 00:45:27 Abscess of foot 493844494 Active 2021 Not Available [facility] 3 00:45:27 Family history of cancer of colon 656042990 Active 2017 Not Available [facility] 3 00:45:27 Pain in left foot 1098319033455 07 Active 2021 Not Available [facility] 3 00:45:27 Pain of left hip joint 5047691364069 00 Active 2017 Not Available [facility] 3 00:45:27 Obese 138883933 Active 2022 Not Available [facility] 3 00:45:28 Neuroma of foot 514253554 Active 2022 Not Available [facility] 3 00:45:28 History of malignant neoplasm of colon 078028576 Active 2017 Not Available [facility] 3 00:45:28 Swelling of lower leg 143108624 Active 2021 Not Available [facility] 3 00:45:28 Essential hypertensi on 09672380 Active 2017 Not Available [facility] 3 00:45:28 Tinea pedis 6094486 Active 2021 Not Available [facility] 3 00:45:28 Abscess of skin and/or subcutaneo us tissue 30243041 Active 2022 Luis Eduardo Lucero DPM [address], [place], [address] , [place] [facility] 3 09:27:08 Retained foreign body in foot 313153090 Active 2022 Luis Eduardo Lucero DPM [address], [address], [place], [address] , [place] [facility] 3 09:29:28 Postoperat rajesh care Active 2022 Luis Eduardo Lucero DPM [address], [address], [place], [address] , [place] [facility] 3 14:35:34 Hordeolum externum of upper eyelid of left eye 6407085480340 02 Active 2022 Gabriela Lopez NP [address], [address], [place], [address] , [place] [facility] 3 16:54:38 Herpes zoster 1760244 Active 2022 Gabriela Lopez NP [address], [address], [place], [address] , [place] [facility] 3 11:07:01 Neuropathy 442196353 Active 2022 Jonathan Boone MD [address], [place], [address] , [place] [facility] 3 16:49:52 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 Active 2022 Jonathan Boone MD [address], [address], [place], [address] , [place] [facility] 17:14:26 Obesity 507676128 Active 2022 Jonathan Boone MD [address], [address], [place], [address] , [place] [facility] 3 17:15:18 Occult blood detected in feces 90080613 Active 2022 Gabriela Lopez NP [address], [place], [address] , [place] [facility] 17:50:45 Tachycardi a 1099164 Active 2022 Gabriela Lopez NP [address], [address], [place], [address] , [place] [facility] 3 17:51:31 Anxiety 10927525 Active 2022 Gabriela Lopez NP [address], [address], [place], [address] , [place] [facility] 3 13:02:07 Cough 37204306 Active 2022 Jonathan Boone MD [address], [place], [address] , [place] [facility] 3 16:41:39 Bronchitis 23744652 Active 2022 Jonathan Boone MD [address], [place], [address] , [place] [facility] 3 16:42:10 Nasal congestion 86790010 Active 2022 Jonathan Boone MD [address], [place], [address] , [place] [facility] 16:42:31 Fatigue 61989910 Active 2022 Jonathan Boone MD [address] [facility] [facility], [facility] [address], [place], [address] , [facility] 16:57:52 Notes:cardiac issues - had a blation colon cancer & rectal cancer Problem Notes None recorded. Procedures Surgical History Date Name Laterality Status Provider Name and Address Organization Details Recorded Time 11/11/19 22 Colonoscopy completed Not Available [facility] 10/13/19 00:41:56 11/17/19 21 Date of Last Pap Smear completed Not Available [facility] 10/12/2022 00:41:51 07/14/20 18 Hip surgery completed Not Available [facility] 10/13/19 00:41:56 Gallbladder Surgery completed Not Available [facility] 10/12/2022 00:41:56 Colon Surgery completed Not Available [facility] 10/12/2022 00:41:56 Knee Replacement completed Not Available [facility] 10/12/2022 00:41:56 Imaging Results None recorded. Procedure Notes None recorded. Medical Equipment None Reported. Allergies Allergen ID Allergen Name Allergen Category Reaction Reaction Severity Criticality Documentation Date Start Date Code Code System Note Provider Name and Address Organization Details Recorded Time 214 latex environme nt,medica tion Not available Not available Not available 10/12/2022 86914 91 RxNorm Not Available [facility] 00:49:47 Medications Name Sig Start Date Stop Date Status Note LastModified by Organization Details LastModified Time celecoxib 200 mg capsule TAKE 1 CAPSULE BY MOUTH TWICE DAILY 11/16 completed Not Available Not Available Not Available amoxicillin 500 mg capsule Take 1 capsule every 8 hours by oral route for 7 days. active Not Available Not Available No t Available doxycycline hyclate 100 mg capsule TAKE 1 CAPSULE BY MOUTH EVERY 12 HOURS FOR 5 DAYS active Not Available Not Available No t Available azithromyci n 250 mg tablet TAKE 2 TABLETS (500 MG) BY ORAL ROUTE ONCE DAILY FOR 1 DAY THEN 1 TABLET (250 MG) BY ORAL ROUTE ONCE DAILY FOR 4 DAYS active Not Available Not Available No t Available benzonatate 200 mg capsule TAKE 1 CAPSULE BY MOUTH EVERY 8 HOURS NEEDED active Not Available Not Available No t Available valacyclovi r 1 gram tablet TAKE 1 TABLET BY MOUTH THREE TIMES DAILY FOR 10 DAYS DIRECTED 01/13 completed Not Available Not Available Not Available hydrocodone 5 mg-acetamin ophen 325 mg tablet TAKE 1 TABLET BY MOUTH EVERY 8 TO 12 HOURS NEEDED 01/13 completed Not Available Not Available Not Available meloxicam 15 mg tablet 05/31 completed Not Available Not Available Not Available lisinopril 20 mg tablet TK 1 T PO QD 05/31 completed Not Available Not Available Not Available prednisone 20 mg tablet TAKE 1 TABLET BY MOUTH EVERY DAY 12/14 completed Not Available Not Available Not Available Debrox 6.5 % ear drops INSTILL 5 DROPS INTO AFFECTED EAR(S) BY OTIC ROUTE 2 TIMES PER DAY active Not Available Not Available No t Available phentermine 37.5 mg tablet TAKE 1 TABLET BY MOUTH EVERY DAY 11/29 completed Not Available Not Available Not Available acetaminoph en 300 mg-codeine 30 mg tablet 07/13 completed Not Available Not Available Not Available amlodipine 5 mg tablet 2 tabs po daily active Not Available Not Available No t Available tramadol 50 mg tablet TK 1 T PO BID 07/13 completed Not Available Not Available Not Available meloxicam 7.5 mg tablet TK 1 T PO QD active Not Available Not Available No t Available oxycodone-a cetaminophe n 5 mg-325 mg tablet TAKE 1 TABLET BY MOUTH EVERY 6 HOURS NEEDED FOR PAIN 11/29 completed Not Available Not Available Not Available famotidine 20 mg tablet TAKE 1 TABLET BY MOUTH DAILY active Not Available Not Available No t Available amitriptyli ne 25 mg tablet TK 1 T PO HS. MAY INCREASE TO 2 TABS AT BEDTIME AFTER 2 WEEKS AND 3 TABS AT BEDTIME AFTER 3 WEEKS active Not Available Not Available No t Available methocarbam ol 750 mg tablet TAKE 1 TABLET BY MOUTH THREE TIMES DAILY 02/18 completed Not Available Not Available Not Available DOK 100 mg capsule TK 1 C PO D 05/31 completed Not Available Not Available Not Available nifedipine ER 60 mg tablet,exte nded release 24 hr TAKE 1 TABLET BY MOUTH EVERY DAY 2023 active Not Available Not Available Not Avai lable amlodipine 10 mg tablet 08/15 completed Not Available Not Available Not Available cephalexin 500 mg capsule TAKE 1 CAPSULE BY MOUTH EVERY 6 HOURS active Not Available Not Available No t Available erythromyci n 5 mg/gram (0.5 %) eye ointment APPLY ON AFFECTED EYE LID FOUR TIMES DAILY FOR 7 DAYS active Not Available Not Available No t Available oseltamivir 75 mg capsule TAKE ONE CAPSULE BY MOUTH TWICE DAILY FOR 5 DAYS active Not Available Not Available No t Available clotrimazol e-betametha sone 1 %-0.05 % topical cream APPLY TO THE AFFECTED AND SURROUNDI NG AREAS OF SKIN BY TOPICAL ROUTE 2 TIMES PER DAY IN THE MORNING AND EVENING FOR 2 WEEKS 10/07 completed Not Available Not Available Not Available polymyxin B sulfate 10,000 unit-trimet hoprim 1 mg/mL eye drops INT 1 GTT AEY Q 3 H WHILE AWAKE active Not Available Not Available No t Available gabapentin 300 mg capsule TAKE 1 CAPSULE BY MOUTH EVERY 8 HOURS DIRECTED active Not Available Not Available No t Available lisinopril 20 mg-hydrochl orothiazide 25 mg tablet 05/31 completed Not Available Not Available Not Available aspirin 81 mg chewable tablet [employer] ONE T PO D 07/13 completed Not Available Not Available Not Available diclofenac sodium 75 mg tablet,josh yed release Take 1 tablet twice a day by oral route as needed. active Not Available Not Available No t Available lisinopril 5 mg tablet 02/18 completed Not Available Not Available Not Available methylpredn isolone 4 mg tablets in a dose pack FOLLOW PACKAGE DIRECTION S active Not Available Not Available No t Available indomethaci n ER 75 mg capsule,ext ended release 1 tab po daily 05/31 completed Not Available Not Available Not Available naproxen 500 mg tablet 07/13 completed Not Available Not Available Not Available amoxicillin 875 mg-potassiu m clavulanate 125 mg tablet TAKE 1 TABLET BY MOUTH EVERY 12 HOURS active Not Available Not Available No t Available amoxicillin 500 mg-potassiu m clavulanate 125 mg tablet TAKE 1 TABLET BY MOUTH EVERY 12 HOURS FOR 10 DAYS 02/18 completed Not Available Not Available Not Available oxycodone 5 mg tablet take 1 or 2 tablets Q 4hrs PRN active Not Available Not Available No t Available escitalopra m 10 mg tablet TAKE 1 TABLET BY MOUTH EVERY DAY active Not Available Not Available No t Available cholestyram ine (with sugar) 4 gram powder for susp in a packet MIX 1 PACKET IN 2 TO 3 OUNCES OF WATER AT BEDTIME. AVOID OTHER MEDS WITHIN 1 HOUR BEFORE OR 4 TO 6 HOURS AFTER DOSE 02/18 completed Not Available Not Available Not Available rosuvastati n 5 mg tablet active Not Available Not Available Not Available Climara Pro 0.045 mg-0.015 mg/24 hr transdermal patch APPLY 1 PATCH TOPICALLY TO THE SKIN WEEKLY 10/07 completed Not Available Not Available Not Available escitalopra m 5 mg tablet TAKE 1 TABLET BY MOUTH EVERY DAY 10/07 completed Not Available Not Available Not Available metronidazo le 1 % topical gel Apply to face nightly 10/07 completed Not Available Not Available Not Available Vitamin D 2020 active Not Available Not Available Not Avai lable hydrochloro thiazide 12.5 mg tablet TAKE 1 TABLET BY MOUTH DAILY active Not Available Not Available No t Available Qsymia 7.5 mg-46 mg capsule, extended release TAKE 1 CAPSULE BY MOUTH EVERY DAY 01/13 completed Not Available Not Available Not Available Eliquis 2.5 mg tablet active Not Available Not Available No t Available Stimulant Laxative Plus 8.6 mg-50 mg tablet active Not Available Not Available Not Available Wegovy 0.25 mg/0.5 mL subcutaneou s pen injector Inject by subcutane ous route for 28 days. active Not Available Not Available No t Available Wegovy 0.5 mg/0.5 mL subcutaneou s pen injector Inject by subcutane ous route for 28 days. 11/29 completed Not Available Not Available Not Available Vitals Date Recorded Body height Body mass index (BMI) Body weight Body temperature Heart rate Respiratory rate Oxygen saturation Oxygen saturation in Arterial blood by Pulse oximetry Pain severity - 0-10 verbal numeric rating [Score] - Reported Systolic blood pressure Diastolic blood pressure Provider Name and Address Organization Details Last Updated DateTime 3 170.18 cm 35.6 kg/m2 314203. 57 g 98.2 [degF] 79 /min 16 /min 97 % 97 % 7 178 mm[Hg] 98 mm[Hg] Gabriela Dave RN [place] [facility] 3 10:51:43 Date Recorded Body height Body mass index (BMI) Body weight Body temperature Heart rate Respiratory rate Oxygen saturation Oxygen saturation in Arterial blood by Pulse oximetry Systolic blood pressure Diastolic blood pressure Provider Name and Address Organization Details Last Updated DateTime 3 170.18 cm 35.7 kg/m2 218767. 06 g 97.7 [degF] 75 /min 16 /min 98 % 98 % 124 mm[Hg] 76 mm[Hg] Sandrita Armendariz RN [facility] [employer] [facility] 3 16:45:14 Date Recorded Body height Body mass index (BMI) Body weight Body temperature Heart rate Respiratory rate Oxygen saturation Oxygen saturation in Arterial blood by Pulse oximetry Pain severity - 0-10 verbal numeric rating [Score] - Reported Systolic blood pressure Diastolic blood pressure Provider Name and Address Organization Details Last Updated DateTime 3 170.18 cm 35.8 kg/m2 920450. 81 g 97.9 [degF] 83 /min 16 /min 98 % 98 % 0 144 mm[Hg] 98 mm[Hg] Gabriela Dave RN [facility] [employer] [facility] 3 16:33:38 Date Recorded Body height Body mass index (BMI) Body weight Body temperature Heart rate Oxygen saturation Oxygen saturation in Arterial blood by Pulse oximetry Provider Name and Address Organization Details Last Updated DateTime 3 170.18 cm 35.6 kg/m2 167689. 47 g 98.1 [degF] 86 /min 98 % 98 % Raul Florez [facility] [employer] [facility] 3 16:38:42 Date Recorded Respiratory rate Systolic blood pressure Diastolic blood pressure Provider Name and Address Organization Details Last Updated DateTime 05/16/2023 20 /min 136 mm[Hg] 80 mm[Hg] Jonathan Boone MD [address] [address], [place], [address], [facility] [employer] [facility] 05/16/2023 16:41:28 Date Recorded Body height Body mass index (BMI) Body weight Body temperature Heart rate Oxygen saturation Oxygen saturation in Arterial blood by Pulse oximetry Systolic blood pressure Diastolic blood pressure Provider Name and Address Organization Details Last Updated DateTime 4 170.18 cm 38.8 kg/m2 473569. 91 g 98.4 [degF] 76 /min 98 % 98 % 170 mm[Hg] 110 mm[Hg] Lacie Zavala MA [facility] 4 12:28:06 Social History Question Answer Notes LastModified by Organizat ion Details LastModified Time Tobacco Smoking Status Former Smoker Not Available [facility] 10/12/2022 00:40:45 Do You Have An Advance Directive? No Information not available 12/06/2022 What Is Your Level Of Alcohol Consumption? Occasional [id number] Information not available 10/12/2022 Is Blood Transfusion Acceptable In An Emergency? Yes Information not available 12/06/2022 What Is Your Level Of Caffeine Consumption? None [id number] Information not available 10/12/2022 What Is Your Code Status? DNI Information not available 12/06/2022 In The 14 Days Before Symptom Onset, Have You Had Close Contact With A Laboratory-confi rmed COVID-19 While That Case Was Ill? No [id number] Information not available 10/12/2022 In The 14 Days Before Symptom Onset, Have You Had Close Contact With A Person Who Is Under Investigation For COVID-19 While That Person Was Ill? No [id number] Information not available 10/12/2022 Are You Currently Employed? Yes Information not available 11/29/2022 What Type Of Diet Are You Following? REGULAR [id number] Information not available 10/12/2022 Which Illicit Or Recreational Drugs Have You Used? None [id number] Information not available 10/12/2022 Do You Or Have You Ever Used E-cigarettes Or Vape? Never Used Electronic Cigarettes [id number] Information not available 10/12/2022 What Is Your Occupation? [employer] [id number] Information not available 10/12/2022 Have There Been Any Changes To Your Family Or Social Situation? No Information not available 11/29/2022 When Did You Quit Smoking? 6-10yearssincelastc igarette Information not available 11/29/2022 Do You Use Insect Repellent Routinely? No Information not available 11/29/2022 Where Do You Live? SingleLevelHouse Information not available 11/29/2022 Do You Have A Medical Power Of [employer]? No Information not available 12/06/2022 What Was The Date Of Your Most Recent Tobacco Screening? 02/28/2022 [id number] Information not available 10/12/2022 How Many Children Do You Have? 0 Information not available 11/29/2022 Have You Ever Been Counseled For Unhealthy Alcohol Use? No [id number].[id number] Information not available 10/12/2022 Do You Have Any Pets? Yes Information not available 11/29/2022 What Is Your Relationship Status? Information not available 11/29/2022 Do You Use Your Seat Belt Or Car Seat Routinely? Yes Information not available 11/29/2022 Do You Have Smoke And Carbon Monoxide Detectors In Your Home? Yes Information not available 11/29/2022 At What Age Did You Start Smoking Tobacco? 16 Information not available 11/29/2022 Are There Any Smokers In Your House? No Information not available 11/29/2022 Do You Participate In Social [employer]? Yes Information not available 11/29/2022 Do You Feel Stressed (tense, Restless, Nervous, Or Anxious, Or Unable To Sleep At Night)? [id number] Information not available 12/06/2022 Do You Use Any Illicit Or Recreational Drugs? No [id number] Information not available 10/12/2022 Do You Use Sunscreen Routinely? Yes Information not available 11/29/2022 Has Tobacco Cessation Counseling Been Provided? No [id number] Information not available 10/12/2022 Have You Recently Traveled Abroad? No Information not available 11/29/2022 Do You Or Have You Ever Used Any Other Forms Of Tobacco Or Nicotine? No [id number].[id number] Information not available 10/12/2022 Sex: Unknown Functional Status Question Answer Note LastModified by Organizat ion Details LastModified Time What is your exercise level? Moderate [id number] Information not available 10/12/2022 Mental Status None recorded. Family History Relationship Description Onset Age of this Age Resolved Age Notes LastModified by Organization Details LastModified Time Unspecified Relation Heart disease [id number] Not available 10/12/2022 00:41:58 Mother Hypertensive disorder [id number] Not available 10/12/2022 00:41:58 Mother Family history of stroke [id number] Not available 10/12/2022 00:41:58 Mother Arthritis [id number] Not available 10/12/2022 00:41:58 Father Family history of malignant neoplasm [id number] Not available 10/12/2022 00:41:59 Father Arthritis [id number] Not available 10/12/2022 00:41:59 Maternal Grandfather Diabetes mellitus [id number] Not available 10/12/2022 00:41:59 Notes:Father- Believes he alexandra d colon cancer but was not checked. Medical History Condition Response SHINGLES Y DEPRESSION (INCLUDING POST ) Y ARTHRITIS Y HYPERTENSION Y CANCER: SPECIFY Y CARDIAC ARRHYTHMIA Y Gynecological History Statement/Question Response Abnormal Pap Y Date of Last Mammogram 10/05/2021 Date of Last Colonoscopy Most Recent Bone Density Date of Last Pap Smear 11/16/2020 Current Control Method Menopause Most Recent Mammogram Breast Problems no Obstetrics History GPAL:G 0 P 0 0 0 0 Immunizations Vaccine Type Date Status Note Provider Nam e and Address Organization Details Recorded Time SARS-COV-2 (COVID-19) vaccine, UNSPECIFIED 1 completed Not Available [facility] 10/12/2022 00:49:39 SARS-COV-2 (COVID-19) vaccine, UNSPECIFIED 1 completed Not Available [facility] 10/12/2022 00:49:40 Influenza, split virus, quadrivalent, preservative 9 completed Not Available [facility] 10/12/2022 00:49:40 Influenza, split virus, quadrivalent, PF 0 completed Not Available [facility] 10/12/2022 00:49:40 Influenza, split virus, quadrivalent, PF 9 completed Not Available [facility] 10/12/2022 00:49:40 Tdap 8 completed Not Available [facility] 10/12/2022 00:49:41 Influenza, split virus, quadrivalent, PF 4 completed TERESA Avalos [place] [facility] 08/21/2023 09:14:21 Past Encounters Encounter ID Performer Location Encounter Start Date Encounter Closed Date Diagnosis/Indication Diagnosis SNOMED-CT Code Diagnosis ICD10 Code Diagnosis Note [id number] [facility] [address] [place] [address] 10/12/2020 00:00:00 10/12/2020 15:19:50 [id number] [facility] [address] [facility] [address] [place] [address] 11/09/2020 00:00:00 11/09/2020 16:11:19 [id number] _ATHENA_M IGRATION_ DEFAULT_1 _1 , 11/16/2020 00:00:00 11/16/2020 12:20:25 [id number] [facility] [place] [address] 01/13/2021 00:00:00 01/13/2021 10:38:10 [id number] [facility] [place] [address] 04/14/2021 00:00:00 04/14/2021 12:58:54 [id number] [facility] [address] [address] 06/29/2021 00:00:00 06/29/2021 15:32:19 [id number] [facility] [address] [address] 08/31/2021 00:00:00 08/31/2021 15:39:32 [id number] [facility] [address] [address] 02/18/2022 00:00:00 02/18/2022 16:43:44 [id number] [facility] [address], [facility] 4 [place] [address] 02/28/2022 00:00:00 02/28/2022 09:10:31 [id number] [facility] [place] [address], [place] [address] [place] [address] 03/10/2022 00:00:00 03/10/2022 10:26:40 [id number] [facility] [place] [address], [place] [address] [place] [address] 03/28/2022 00:00:00 03/28/2022 09:18:52 [id number] [facility] [place] [address] [place] [address] 09/19/2022 00:00:00 09/19/2022 11:29:28 [id number] [facility]_[address] [address] 10/07/2022 00:00:00 10/07/2022 15:34:47 [id number] Luis Eduardo Lucero DPM [facility] [address] [facility] [address] [place] [address] 10/10/2022 00:00:00 10/26/2022 14:22:14 [id number] Luis Eduardo Lucero DPM [facility] [address] [facility] [address] [place] [address] 11/03/2022 08:50:42 11/03/2022 11:21:18 Retained foreign body in foot [id number] Z18.9 MRI reviewed with the patientTre atment options reviewPati ent will pursue surgery which I recommend secondary to possible abscess collection with retained foreign body in continued pain. All risks, benefits, complicati ons were reviewed with the patient to her complete full understand ing. Patient has or has been present who also understand s. No guarantees were given or implied. Patient elects to proceed with incision and drainage of left foot with removal of foreign body.obtai n surgical clearanceF ollow-up post surgery plansurger y on 11/11/2022 Abscess of skin and/or subcutaneous tissue [id number] L02.91 As above [id number] Luis Eduardo Lucero DPM [facility] [address] [facility] [address] [place] [address] 11/14/2022 12:12:00 11/15/2022 12:21:34 Postoperative care [id number] Z48.89 Status post 3 daysdressi ng changeinci sional area cleaned with ChloraPrep dressings to stay clean dry for 1 weekMinima l weightbear Continue use of postop shoe weight-delaney ringFollow -up 1 week- dressing change [id number] Luis Eduardo Lucero DPM [facility] [address] [place] [address] 11/21/2022 12:13:39 11/21/2022 14:44:51 Postoperative care [id number] Z48.89 Status post 10 daysdressi ng changeinci sional area cleaned with ChloraPrep dressings to stay clean dry for 1 weekMinima l weightbear Continue use of postop shoe weight-delaney ringFollow -up 1 week- dressing change [id number] Gabriela Lopez NP S_[address] [address] 11/29/2022 15:57:49 11/29/2022 17:04:28 Essential hypertension [id number] I10 Nifedipine ER 60 mg tablet. Obese [id number] E66.9 wegovy denied. Phentermin e- BP raised. Contraindi cation to lexapro with contrave. Try on qsymia 7.5 mg-46 mg cap po daily for 12 weeks. No Xenical due to previous colon cancer and had part of rectum removed. Concern for stool leakage. Hordeolum externum of upper eyelid of left eye [id number] 03072 H00.014 bid for 5 days erythromyc in. pt has at home. [id number] Luis Eduardo Lucero DPM [facility] [address] [place] [address] 12/05/2022 11:12:04 12/05/2022 11:49:53 Postoperative care [id number] Z48.89 Status post - Soft tissue removalpat hology reviewed with the patient benignsutu res removedmay continue to show are no soaking for 4 weeksfollo w-up as needed [id number] Gabriela Lopez NP [address] [address] 12/06/2022 10:38:14 12/06/2022 13:00:59 Herpes zoster 0531085 B02.9 Valtrex 1 gm po bid for 10 days.Gabap entin 300 mg po nightly.Pr ednisone 20 mg po x 5 days in the morningOnc e rash gone for >30 days, get shingrix vaccine [id number] Jonathan Boone MD [address] [address] 12/14/2022 16:38:32 12/14/2022 17:16:46 Herpes zoster 9789600 B02.9 Neuropathy [id number] G62 .9 Post-herpe tic polyneuropathy 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 Phentermin e- BP raised. Contraindi cation to lexapro with contrave. Try on qsymia 7.5 mg-46 mg cap po daily for 12 weeks. No Xenical due to previous colon cancer and had part of rectum removed. Concern for stool leakage. 01/13/23 having side effects of qsymia. Pt to stop and will retry script for wegovy. Post-herpe tic polyneuropathy 99475079 B02.23 gabapentin 300 mg po tid- improved. [id number] Jonathan Boone MD [address] [address] 05/16/2023 16:21:41 05/16/2023 17:01:37 Cough 49225940 R05.9 Bronchitis 47403925 J40 Nasal congestion 8809763 0 R09.81 Fatigue 88281983 R53.83 [id number] Gabriela Lopez NP [address] [place] [address] 08/18/2023 12:18:00 08/18/2023 14:12:27 Administration of influenza vaccine 83962864 Z23 Obese [id number] E66.9 wegovy denied. Phentermin e- BP raised. Contraindi cation to lexapro with contrave. Try on qsymia 7.5 mg-46 mg cap po daily for 12 weeks. No Xenical due to previous colon cancer and had part of rectum removed. Concern for stool leakage. 01/13/23 having side effects of qsymia. Pt to stop and will retry script for wegovy.08/18 pt aware zepbound avail and that local spas are providing injections in office. Pt wishes to wait. Will get labs done first- but will get with new provider. Essential hypertension 46523029 I10 Nifedipine ER 60 mg tablet.Hig h today. Encouraged pt to monitor at home and call monday if still high. pt aware she has gained weight. Health Concerns Section Related Observation LastModified by Organization Detai ls LastModified Time None Recorded Concern Status LastModified by Organization Details LastModified Time None Recorded Advance Directives Directive N: Payers Encounter Date Sequence Insurance Name Policy Number Policy Oleary Covered Member ID Oleary Member ID Guarantor Name 12/06/2022 1 EAST - DOS PRIOR TO 2024 - [employer] () Archana Jones [id number] Archana Jones 12/14/2022 1 EAST - DOS PRIOR TO 2024 - [employer] () Archana Jones [id number] Archana Jones 01/13/2023 1 EAST - DOS PRIOR TO 2024 - [employer] () Archana Jones [id number] Archana Jones 05/16/2023 1 EAST - DOS PRIOR TO 2024 - [employer] () Archana Jones [id number] Archana Jones 08/18/2023 1 EAST - DOS PRIOR TO 2024 - [employer] () Archana Jones [id number] Archana Jones Notes Date Note Type Note Provider Name and Address Organization Details Recorded Time 12/06/2022 text/html Here for rash on back and right chest. Pain and itch. Has been an irritation, but then started with a rash and pain. Burning itch. Blisters with red base. Never had shingles previously, but did have chicken-pox as a child. Has been under increased stress with foot issue, then mother fell and broke hip and arm, issues with her rehab, hoarder home conditions having to clean out. Gabriela Lopez NP [address] [facility], [facility] [address], [place], [address], [employer] 12/06/2022 13:20:58 12/14/2022 text/html ACV:Here with mahogany crowe. C/o rash over her Rt side of chest and Rt upper back for last 11 days. Pt denies any known sick contact/recent outside travel. C/o burning pain over the area since than. Pt has tried few different meds for this and she is doing overall better now. No other concern. Jonathan Boone MD [address] [facility], [facility] [address], [place], [address], [employer] 12/14/2022 17:15:37 01/13/2023 text/html Here for weight check and med checks. Has been doing low carb diet and drinking 60+ ounces water daily, exercising routinely. Walking 3 miles 4 days weekly.Has extreme heartburn and having to have nexium daily. Wakes her up at night and interrupted sleep is not conducive to daily functioning. Has not lost weight on the medication. Previously, pina denied. Phentermine- BP raised. Contraindication to lexapro with contrave. Try on qsymia 7.5 mg-46 mg cap po daily for 12 weeks. No Xenical due to previous colon cancer and had part of rectum removed. Concern for stool leakage. Foot is all better. Feeling like she is coming out of her funk . Gabriela Lopez NP [address] [facility], [address], [place], [address], [employer] 01/13/2023 16:58:10 05/16/2023 text/html ACV: C/o cough and congestion for last 10 days. 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 Denies any known sick contact/covid concern. Denies any other symptoms. Jonathan Boone MD [address], [facility] [address], [place], [address], [facility] [employer] [facility] 05/16/2023 16:59:30 08/18/2023 text/html Here for check u p. Wants shingrix, but wasn't aware it's only avail at pharmacy. Home bp 128/75, generally 130/80. high today. not sure why. Did just take medication < 1 hr ago. Still seeing dining car hop. Gabriela Lopez NP [address], [facility] [address], [place], [address], [facility] [employer] [facility] [employer] 08/18/2023 14:05:52 OBGyn Episode No OBEpisode recorded.
--- OUTSIDE RECORDS SUMMARY | 2024-10-07 19:09 | XMS_ITS | CONTINUITY OF CARE DOCUMENT ---
Author Name leonard valle Address Unknown Organization [facility] Office Address [address] [place] [address] [address] [place] [address] Phone [phone] Care Team Providers Care Cross Country/Track And Field Coach Name Role Phone Curtis Gonzalez MD Unavailable Curtis Gonzalez MD Unavailable [phone] INSURANCE PROVIDERS Payer name Policy type / Coverage type [place] red libertarian ID [facility] [employer] [facility] 003 [id number]
--- OUTSIDE RECORDS SUMMARY | 2024-10-07 19:09 | XMS_ITS | Referral Summary ---
Author Organization [facility] Address [address] [place] [address] Care Team Providers Care Nurses Aide Name Role Phone Gabriela Tomlinson Rosa Isela GÓMEZ-TECHNICAL TRAINING SPECIALIST Primary Care Provider Source Comments [facility],non-owned Affiliates and Associated Physician Practices is amultiple site organization consisting of ambulatory clinics and hospital sitesin [place], [place], [place] and [place]. This disclosure is being madepursuant to the Care Everywhere program and may not contain all information available regarding this patient. Last updated 18.[facility] Allergies No known active allergies Medications * Be aware that medications may not be up to date on this document. Alwaysverify current medications with the patient. Medication Sig Dispensed Refills Start Date End Date Status amLODIPine (NORVASC) 5 MG tablet Take 10 mg by mouth 04/30/2018 Active lisinopril-hydroCHLOR Othiazide (PRINZIDE; ZESTORETIC) 20-25 MG tablet Take 1 tablet by mouth once daily Active meloxicam (MOBIC) 7.5 MG tablet TAKE 1 TABLET BY MOUTH EVERY DAY 30 tablet 06/29/2020 Active Active Problems Problem Noted Date Diagnosed Date Left hip pain 06/13/2018 Immunizations Name Administration Dates Next Due INFLUENZA VACCINE, QUADR. (F LUZONE; FLULAVAL; FLUARIX; AFLURIA QUADRIVALENT; 6MO+), 0.5 ML (IIV4) 07/27/2018 Social History Tobacco Use Types Packs/Day Years [...] Comments Blood Pressure 134/92 07/28/2018 8:35 AM MANAGEMENT TRAINER Pulse 83 07/28/2018 8:35 AM MANAGEMENT TRAINER Temperature 36.4 C (97.6 F) 07/28/2018 8:35 AM MANAGEMENT TRAINER Respiratory Rate 20 07/28/2018 8:35 AM MANAGEMENT TRAINER Oxygen Saturation 97% 07/28/2018 8:35 AM MANAGEMENT TRAINER Inhaled Oxygen Concentration - - Weight 99.8 kg (220 lb) 11/14/2018 1:17 PM CDT Height 175.3 cm (5' 9 ) 11/14/2018 1:17 PM CDT Body Mass Index 32.49 11/14/2018 1:17 PM CDT Functional Status Functional Status Response Date of [...] person have difficulty concentrating/remembering/making decisions? No 07/27/2018 Plan of Treatment Not on file Medical Devices Implanted Type Area Dry Cleaner Device Identifier Shelf Expiration Date Model / Serial / Lot Shell Actb 52mm Hip 3 Hl Poly R3 Std Implanted:Qty: 1 on 07/26/2018 by Elbert Fisher MD at [facility] Left: Hip [employer] 01/05/2028 [id number] / / [id number] Description:AB R3 3 HOLD ACET SHELL 52MM--07/31 LG Screw 6.5mm 35mm Hip Actb Canc Sphrcl Implanted:Qty: 1 on 07/26/2018 by Elbert Fisher MD at [facility] Left: Hip [employer] 12/07/2026 [id number] / / [id number] Description:AB REF SPHER HEAD SCREW 35MM--07/31 LG Liner Actb R3 0d 52mm 36mm Xlpe Hip Flxb Implanted:Qty: 1 on 07/26/2018 by Elbert Fisher MD at [facility] Left: Hip [employer] 05/11/2028 [id number] / / [id number] Description:AB R3 0 DEG XLPE ACET LNR 36MM X 52MM --07/31 LG Head Fem +0mm 07/27 Tpr 36mm Hip Oxnm Implanted:Qty: 1 on 07/26/2018 by Elbert Fisher MD at [facility] Left: Hip [employer] 05/13/2028 [id number] / / [id number] Description:AB OXINIUM FEM HD 07/28 36 MM +0 --07/31 LG Polarstem Stem Std Ti/Nathan 3 Non-Jono Implanted:Qty: 1 on 07/26/2018 by Elbert Fisher MD at [facility] Left: Hip 04/07/2025 [id number] / / [id number] Description:AB STANDARD STEM Haja Oxinium Upchrg Implanted:Qty: 1 on 07/26/2018 by Elbert Fisher MD at [facility] Left: Hip [employer] OXINIUM UPCHG SNORTHO BILL ONLY / / Haja H1 Total Hip Implanted:Qty: 1 on 07/26/2018 by Elbert Fisher MD at [facility] Left: Hip [employer] TOTAL HIP H1 / / Procedures Procedure Name Priority Date/Time Associated Diagnosis Comments BASIC METABOLIC PANEL (CALCIUM TOTAL) AM Draw 07/28/2018 4:00 AM MANAGEMENT TRAINER from Last 3 Months or Most Recently Relevant to Health Maintenance Results * (ABNORMAL) BASIC METABOLIC PANEL (CALCIUM TOTAL) (07/28/2018 4:00 AM MANAGEMENT TRAINER) Glucose 115(H) 74 - 106 mg/dL 07/28/2018 4:49 AM [facility] Sodium 142 136 - 145 mmol/L 07/28/2018 4:49 AM [facility] Potassium 3.7 3.5 - 5.1 mmol/L 07/28/2018 4:49 AM [facility] Chloride 109(H) 98 - 107 mmol/L 07/28/2018 4:49 AM [facility] CO2 27 22 - 31 mmol/L 07/28/2018 4:49 AM [facility] Calcium 8.0(L) 8.5 - 10.1 mg/dL 07/28/2018 4:49 AM [facility] Anion Gap 6(L) 8 - 16 mmol/L 07/28/2018 4:49 AM [facility] BUN 11 7 - 21 mg/dL 07/28/2018 4:49 AM [facility] Creatinine 0.61 0.50 - 1.30 mg/dL 07/28/2018 4:49 AM [facility] eGFR by MDRD >60 >60 mL/min/1.7 3m2 07/28/2018 4:49 AM [facility] eGFR by MDRD >60 >60 mL/min/1.7 3m2 07/28/2018 4:49 AM [facility] Blood BLOOD SPECIMEN / Unknown Lab Venipuncture / Unknown 07/28/2018 4:00 AM MANAGEMENT TRAINER 07/28/2018 4:21 AM MANAGEMENT TRAINER Hi Haddad MD LAB - CHEMISTRY [facility] [address] [place], [place] [id number] from Last 3 Months or Most Recently Relevant to Health Maintenance Advance Directives * Full Code (Latest Code Status on File) Date Activated Date Inactivated Comments 07/26/2018 3:27 PM 07/28/2018 11:36 AM Care Teams Nurses Aide Relationship Specialty Start Date End Date Gabriela Tomlinson, STATISTICAL TYPIST-TECHNICAL TRAINING SPECIALIST [address] [place] [id number] PCP - General 11/13/18
--- OUTSIDE RECORDS SUMMARY | 2024-10-07 19:09 | XMS_ITS | Clinical Summary ---
Author Organization [facility] [address] Address [address] [place] [address] Care Team Providers Care Returned Goods Inspector Name Role Phone Bushra Gabriela Gonzales COLUMNIST Primary Care Provider + Allergies Active Allergy Reactions Criticality Noted Date [...] 15 Overview (11/17/2016): PSVT (paroxysmal supraventricular tachycardia) Encounters Date Type Department Care Team Description 08/22/2024 11:20 AM EMERGENCY DEPARTMENT PHYSICIAN Office Visit [facility] [address] [place] [address] Advanced Medicine 6th [place] [address] [place] [address] Romario Dorsey MD Closed fracture of capitellum of distal humerus, left, initial encounter (Primary Dx) 08/22/2024 11:18 AM EMERGENCY DEPARTMENT PHYSICIAN - 08/22/2024 11:59 PM EMERGENCY DEPARTMENT PHYSICIAN Hospital Encounter [facility] [address] [place] [address] Closed fracture of capitellum of distal humerus, left, initial encounter Discharge Disposition: Discharge to home or self care from Last 3 Months Surgical History Surgery Date Site/Laterality Comments APPENDECTOMY Appendectomy TONSILLECTOMY Tonsillectomy REPLACEMENT TOTAL KNEE 09/01/2020 Right Medical History Medical History Date Comments Hypertension Hypertension Hx Other Medical PSVT Hx Other Medical rectal CA, Gastroesophageal reflux disease GERD Hx Other Medical rectal surgery followed by ileostomy and colostomy Hx Other Medical D&C Family History Medical History Relation Name Comments Liver cancer Father 2 Cancer, liver; Cause of : Cancer, liver Lung cancer Father 2 Cancer, lung; C ause of : Cancer, lung Other Mother 2 Alive and well; Relation Name Status Comments Father 1 Father 2 Mother 1 Alive Mother 2 Social History Tobacco Use Types Packs/Day Years [...] on file Legal Sex Female 7:08 PM EMERGENCY DEPARTMENT PHYSICIAN Gender Identity Not on file Sexual Orientation Not on file Obstetrics History Last Filed Vital Signs Vital Sign Reading [...] 06/03/2024 11:28 AM CDT Plan of Treatment Health Maintenance Due Date Last Done Comments Breast Cancer Screening-Mammogram 1960 Cervical Cancer Screening 1960 Colon Cancer Screening-Colonoscopy 1960 Depression Screening 1960 Hepatitis C Screening 1960 Hepatitis B Screening 02/21/1978 Regular Well Visit/Exam 18-64 02/21/1978 Zoster Vaccine (1 of 2) 02/21/2010 Influenza Vaccine (#1) 2024 4, 05/21/2020, 06/07/2019, Additional history exists DTaP/Tdap/Td Vaccine (2 - Td or Tdap) 07/13/2028 07/13/2018 Pneumococcal vaccine <65 Aged Out No longer eligible based on patient's age to complete this topic Medical Devices Implanted Type Area Transition Teacher Device Identifier Shelf Expiration Date Model / Serial / Lot Synthes Screw Bone Compression Cannulated Long Thread 3.0x34mm Ti . - [id number] Implanted:Qty: 1 on 04/02/2024 by Romario Dorsey MD at [facility] [employer] / / Synthes Screw Bone Compression Cannulated Long Thread 3.0x22mm Ti - [id number] Implanted:Qty: 1 on 04/02/2024 by Romario Dorsey MD at [facility] [employer] / / Synthes Screw Bone Compression Cannulated Long Thread 3.0x20mm Ti . - [id number] Implanted:Qty: 1 on 04/02/2024 by Romario Dorsey MD at [facility] [employer] / / Procedures Procedure Name Priority Date/Time Associated Diagnosis Comments XR ELBOW LEFT 3 OR MORE VIEWS Schedule Routine, Read Routine (OP Routine) 08/22/2024 11:35 AM EMERGENCY DEPARTMENT PHYSICIAN Closed fracture of capitellum of distal humerus, left, initial encounter from Last 3 Months Results * XR Elbow Left 3 or More Views (08/22/2024 11:35 AM EMERGENCY DEPARTMENT PHYSICIAN) Anatomical Region Laterality Modality Upper Extremities, Elbow Left Compute d Radiography 08/22/2024 11:3 7 AM EMERGENCY DEPARTMENT PHYSICIAN Impressions 08/22/2024 11:37 AM EMERGENCY DEPARTMENT PHYSICIAN 1. Healing reduced and internally fixated left elbow capitellar fracture. Electronically signed by: Brant Mccall M.D. Narrative 08/22/2024 11:37 AM EMERGENCY DEPARTMENT PHYSICIAN EXAMINATION: XR ELBOW LEFT 3 OR MORE [...] fracture. Electronically signed by: Brant Mccall M.D. Romario Dorsey MD IMG XR PROCEDURES Final Result from Last 3 Months Insurance [facility] WORKERS COMPENSATION GENERIC LISETTE BRIAN Advance Directives For more information, please contact: [phone] * Full Code (Latest Code Status on File) Date Activated Date Inactivated Comments 04/02/2024 1:39 PM 04/03/2024 5:23 PM * Full Code Date Activated Date Inactivated Comments 04/02/2024 1:01 AM 04/02/2024 1:39 PM Care Teams Returned Goods Inspector Relationship Specialty Start Date End Date Gabriela Tomlinson NP PCP - General Nurse Practitioner 10/25/18
--- OUTSIDE RECORDS SUMMARY | 2024-10-07 19:09 | XMS_ITS | Clinical Summary ---
Author Organization [facility] Address [address] [place] [id number] Care Team Providers Care [employer] Teacher Name Role Phone Gabriela Tolminson Rosa Isela [facility] Primary Care Provider + Allergies No known active allergies Medications lisinopril-hydro chlorothiazide 20-25 MG tablet Take 1 tablet by mouth daily. 11 10/25/2018 Active amlodipine 10 MG tablet 10 10/15/2018 Active meloxicam 7.5 MG tablet Take 7.5 mg by mouth daily. 3 12/18/2018 Active Active Problems Problem Noted Date Diagnosed Date Primary osteoarthritis of right knee 11/02/2018 Effusion of right knee 11/02/2018 Social History Tobacco Use Types Packs/Day Years Used Date Smoking Tobacco: Former Smokeless Tobacco: Never Alcohol Use Standard Drinks/Week Comments Yes 0 (1 standard drink = 0.6 oz pur e alcohol) weekly Comments Unknown Sex and Gender Information Value Date Recorded Sex Assigned at Not on file Legal Sex Female 4:37 PM CDT Gender Identity Not on file Sexual Orientation Not on file Last Filed Vital Signs Vital Sign Reading Time Taken Comments Blood Pressure 118/80 01/01/2019 8:42 AM CDT Pulse 63 01/01/2019 8:42 AM CDT Temperature 36.7 C (98 F) 10/24/2017 4:42 PM CDT Respiratory Rate 18 10/24/2017 6:06 PM CDT Oxygen Saturation 100% 10/24/2017 6:06 PM CDT Inhaled Oxygen Concentration - - Weight 96.6 kg (213 lb) 01/01/2019 8:42 AM CDT Height 175.3 cm (5' 9 ) 01/01/2019 8:42 AM CDT Body Mass Index 31.45 01/01/2019 8:42 AM CDT Plan of Treatment Health Maintenance Due Date Last Done Comments Cervical Cancer Screening Pa p Smear (Age 30 to 64) Every 3 Years 1960 Colorectal Cancer Screening Colonoscopy (10 Years) 1960 Annual Physical 02/21/1963 Hepatitis C 02/21/1978 DTaP, Tdap and Td Vaccines ( 1 - Tdap) 02/21/1979 Cervical Cancer Screening Pa p with HPV Testing (Age 30 to 64) Every 5 Years 02/21/1990 Cervical Cancer Screening with HPV 02/21/1990 Mammogram Screening 2000 Zoster Vaccines (1 of 2) 02/21/2010 COVID-19 Vaccine (2023-2 5 season) 2024 Influenza Adult (#1) 2024 07/27/2018 RSV Immunization or 60+ Years (1 - 1-dose 75+ series) 02/21/2035 Meningococcal B Vaccine Aged Out No l onger eligible based on patient's age to complete this topic Meningococcal Vaccine Aged Out No jennifer varinder eligible based on patient's age to complete this topic Pneumococcal Vaccine: Pediat rics (0 to 5 Years) and At-Risk Patients (6 to 64 Years) Aged Out No longer eligi ble based on patient's age to complete this topic RSV Immunizations Under 20 Months Aged Out No longer eligible based on patient's age to complete this topic Insurance [place] [id number] GENERIC - THIRD LIBERTARIAN LIABILITY Care Teams [employer] Auto Rep[employer] Teacher Relationship Specialty Start Date End Date Gabriela Tomlinson, INTERSTATE BUS DISPATCHER- [address] [place] [address] PCP - General NURSE PRACTITIONER 01/01/19
--- OUTSIDE RECORDS SUMMARY | 2024-10-07 19:09 | XMS_ITS | Clinical Summary ---
Author Organization [facility] [employer] Address [address] [place] [address] Care Team Providers Care Signal Processing Engineer Name Role Phone Gabriela Tomlinson Rosa Isela GÓMEZ-FISH PROCESSING SUPERVISOR Primary Care Provider Source Comments [facility],non-owned Affiliates and Associated Physician Practices is amultiple site organization consisting of ambulatory clinics and hospital sitesin [place], [place], [place] and [place]. This disclosure is being madepursuant to the Care Everywhere program and may not contain all information available regarding this patient. Last updated 18.[facility] [employer] Allergies No known active allergies Medications * [...] Comments Blood Pressure 134/92 07/28/2018 8:35 AM PROTECTION SPECIALIST Pulse 83 07/28/2018 8:35 AM PROTECTION SPECIALIST Temperature 36.4 C (97.6 F) 07/28/2018 8:35 AM PROTECTION SPECIALIST Respiratory Rate 20 07/28/2018 8:35 AM PROTECTION SPECIALIST Oxygen Saturation 97% 07/28/2018 8:35 AM PROTECTION SPECIALIST Inhaled Oxygen Concentration - - Weight 99.8 kg (220 lb) 11/14/2018 1:17 PM CDT Height 175.3 cm (5' 9 ) 11/14/2018 1:17 PM CDT Body Mass Index 32.49 11/14/2018 1:17 PM CDT Plan of Treatment Health Maintenance Due Date Last Done Comments COLOGUARD (AGES 45-75) - COL ON CA SCREENING 1960 COLON MONITORING 1960 COLONOSCOPY - COLON CA SCREENING 1960 CT COLONOGRAPHY - COLON CA SCREENING 1960 Colorectal Cancer Screening 1960 FIT - COLON CA SCREENING 1960 FLEX SIG - COLON CA SCREENING 1960 LIPID TESTING 1960 MAMMOGRAM 1960 PAP SMEAR 1960 HIV SCREENING 02/21/1975 HEPATITIS C SCREENING 02/17/1978 DTAP/TDAP/TD VACCINES (1 - Tdap) 02/21/1979 PNEUMOCOCCAL VACCINE 50+ (1 of 1 - PCV) 02/21/2010 ZOSTER VACCINE (1 of 2) 02/21/2010 SCREENING FOR DIABETES 07/28/2021 8, 07/16/2018 COVID-19 VACCINE (1 - 2023-2 5 season) 2024 INFLUENZA VACCINE (#1) 2024 07/27/2018 DEPRESSION SCREENING 08/14/2024 Respiratory Syncytial Virus (RSV) Vaccine Pt: or over 60 yrs (1 - 1-dose 75+ series) 02/21/2035 HEPATITIS B VACCINE Aged Out No longe r eligible based on patient's age to complete this topic HIB VACCINE Aged Out No longer eligi ble based on patient's age to complete this topic HPV VACCINE Aged Out No longer eligi ble based on patient's age to complete this topic MENINGOCOCCAL (Group B) VACCINE Aged Out No longer eligible b ased on patient's age to complete this topic MENINGOCOCCAL VACCINE Aged Out No jennifer varinder eligible based on patient's age to complete this topic PNEUMOCOCCAL VACCINE Aged Out No long er eligible based on patient's age to complete this topic Medical Devices Implanted Type Area Stone Polisher Device Identifier Shelf Expiration Date Model / Serial / Lot Shell Actb 52mm Hip 3 Hl Poly R3 Std Implanted:Qty: 1 on 07/26/2018 by Elbert Fisher MD at [facility] Left: Hip [employer] 01/05/2028 [id number] / / [id number] Description:AB R3 3 HOLD ACET SHELL 52MM--07/31 LG Screw 6.5mm 35mm Hip Actb Canc Sphrcl Implanted:Qty: 1 on 07/26/2018 by Elbert Fisher MD at [facility] Left: Hip [employer] 12/07/2026 [id number] / / [id number] Description:AB REF SPHER HEAD SCREW 35MM--18 LG Liner Actb R3 0d 52mm 36mm Xlpe Hip Flxb Implanted:Qty: 1 on 07/26/2018 by Elbert Fisher MD at [facility] Left: Hip [employer] 05/11/2028 [id number] / / [id number] Description:AB R3 0 DEG XLPE ACET LNR 36MM X 52MM --07/31 LG Head Fem +0mm /14 Tpr 36mm Hip Oxnm Implanted:Qty: 1 on 07/26/2018 by Elbert Fisher MD at [facility] Left: Hip [employer] 05/13/2028 [id number] / / [id number] Description:AB OXINIUM FEM HD 07/28 36 MM +0 --07/31 LG Polarstem Stem Std Ti/Nathan 3 Non-Jono Implanted:Qty: 1 on 07/26/2018 by Elbert Fisher MD at [facility] Left: Hip 04/07/2025 [id number] / / [id number] Description:AB STANDARD STEM Haja Oxinium Upchrg Implanted:Qty: 1 on 07/26/2018 by Elbert Fisher MD at [facility] Left: Hip [employer] OXINIUM UPCHG SNORTHO BILL ONLY / / Haja H1 Total Hip Implanted:Qty: 1 on 07/26/2018 by Elbert Fisher MD at [facility] Left: Hip [employer] TOTAL HIP H1 / / Procedures Procedure Name Priority Date/Time Associated Diagnosis Comments BASIC METABOLIC PANEL (CALCIUM TOTAL) AM Draw 07/28/2018 4:00 AM PROTECTION SPECIALIST from Last 3 Months or Most Recently Relevant to Health Maintenance Results * (ABNORMAL) BASIC METABOLIC PANEL (CALCIUM TOTAL) (07/28/2018 4:00 AM PROTECTION SPECIALIST) Glucose 115(H) 74 - 106 mg/dL 07/28/2018 4:49 AM PROTECTION SPECIALIST [facility] Sodium 142 136 - 145 mmol/L 07/28/2018 4:49 AM PROTECTION SPECIALIST [facility] Potassium 3.7 3.5 - 5.1 mmol/L 07/28/2018 4:49 AM PROTECTION SPECIALIST [facility] Chloride 109(H) 98 - 107 mmol/L 07/28/2018 4:49 AM PROTECTION SPECIALIST [facility] CO2 27 22 - 31 mmol/L 07/28/2018 4:49 AM PROTECTION SPECIALIST [facility] Calcium 8.0(L) 8.5 - 10.1 mg/dL 07/28/2018 4:49 AM PROTECTION SPECIALIST [facility] Anion Gap 6(L) 8 - 16 mmol/L 07/28/2018 4:49 AM PROTECTION SPECIALIST [facility] BUN 11 7 - 21 mg/dL 07/28/2018 4:[address] [facility] Creatinine 0.61 0.50 - 1.30 mg/dL 07/28/2018 4:49 AM PROTECTION SPECIALIST [facility] eGFR by MDRD >60 >60 mL/min/1.7 3m2 07/28/2018 4:49 AM PROTECTION SPECIALIST [facility] eGFR by MDRD >60 >60 mL/min/1.7 3m2 07/28/2018 4:49 AM PROTECTION SPECIALIST [facility] Blood BLOOD SPECIMEN / Unknown Lab Venipuncture / Unknown 07/28/2018 4:00 AM PROTECTION SPECIALIST 07/28/2018 4:21 AM PROTECTION SPECIALIST Hi Haddad MD LAB - CHEMISTRY MONIQUE SWANSON [facility] Organization Address City/State/ZIP Co de Phone Number [facility] [address] [place] [address] from Last 3 Months or Most Recently Relevant to Health Maintenance Advance Directives * Full Code (Latest Code Status on File) Date Activated Date Inactivated Comments 07/26/2018 3:27 PM 07/28/2018 11:36 AM Care Teams Signal Processing Engineer Relationship Specialty Start Date End Date Gabriela Tomlinson, PEER SUPPORT SPECIALIST-FISH PROCESSING SUPERVISOR [address] [place] [id number] PCP - General 11/13/18
--- OUTSIDE RECORDS SUMMARY | 2024-10-07 19:11 | XMS_ITS | CONTINUITY OF CARE DOCUMENT ---
Author Name leonard valle Address Unknown Organization [facility] Office Address [address] [place] [address] [address] [place] [address] Phone [phone] Care Team Providers Care Lift Manager Name Role Phone Curtis Gonzalez MD Unavailable Curtis Gonzalez MD Unavailable INSURANCE PROVIDERS Payer name Policy type / Coverage type [place] [employer] [facility] [employer] [facility] 003 [id number]
--- NOTE | 2024-10-07 19:12 | ED.URI ---
HPI - URI/Sore Throat General Chief Complaint: Upper Respiratory Infection Stated Complaint: flu like Time Seen by Provider: 10/07/24 19:06 Source: patient, RN notes reviewed and old records reviewed Mode of arrival: ambulatory Limitations: no limitations History of Present Illness HPI Narrative: 64-year-old female presents to the [facility] with flu-like symptoms. patient states she has had fever chills left ear pain since Monday. Reports fever 101-1 2. Patient also states that for last 6-7 weeks she has had some GI symptoms which is being managed by her primary. Onset (ago): day(s) (3) Related Data Home Medications ?Medication ?Instructions ?Recorded ?Confirmed ?Last Taken ?Type semaglutide 1 mg/dose (4 mg/3 mL) 0.25 mg subcut ONCE 10/07/24 Unknown History subcutaneous pen injector Allergies Allergy/AdvReac Type Severity Reaction Status Date / Time adhesive Allergy Unknown RASH Verified 10/07/24 18:52 bacitracin Allergy Unknown Rash Verified 10/07/24 18:52 neomycin Allergy Unknown Rash Verified 10/07/24 18:52 polymyxin B Allergy Unknown Rash Verified 10/07/24 18:52 Review of Systems Review of Systems: All systems reviewed & are unremarkable except as noted in HPI and below Constitutional: Constitutional: Reports as per HPI, Reports chills and Reports fever(s) ENT: Reports as per HPI Cardiovascular: Cardiovascular: Reports no additional cardiovascular complaints, Denies chest pain and Denies dyspnea Respiratory: Respiratory: Reports no additional respiratory complaints, Denies chest congestion, Denies cough and Denies dyspnea Musculoskeletal: Musculoskeletal: Reports no additional musculoskeletal complaints Integumentary/Breasts: Skin/Breast: Reports system reviewed and no additional complaints, except as docu PMFSH Past Medical History Medical History Obese Hyperlipidemia Edema Primary localized osteoarthrosis of left hip Insomnia Vitamin D deficiency, unspecified Unilateral primary osteoarthritis, right knee Supraventricular tachycardia Seborrheic keratoses Restless leg Hx of supraventricular tachycardia Hx of malignant neoplasm of rectum Essential (primary) hypertension Dairy product intolerance Cellulitis of left upper extremity FH: total knee replacement BRBPR (bright red blood per rectum) Depression Anxiety HTN (hypertension) Surgical History Surgical History H/O elbow surgery apr 2024 broken elbow, surgery done S/P tonsillectomy History of appendectomy History of total hip replacement H/O colonoscopy H/O foot surgery H/O knee surgery Family History Family History Grandparent Hypertension Diabetes mellitus Asthma Heart disease Father Family history of lung cancer Mother Hypertension Heart disease Cerebrovascular accident Other Family history of primary malignant neoplasm of liver Social History Social History Social History: 08/13/24 patient declined SDOH Smoking packs per day: 1 Smoking cigarettes per day: 20.0 Years smoked: 20 Smoking pack-years: 20.00 Smoking status: Former smoker Tobacco type: cigarettes Smoking end date: 08/14/09 Alcohol intake: current Drinks per week: 5 Alcohol use details: wine Substance use: never Substance use type: does not use Do You Feel Safe in your Home?: Yes Lack of Transportation: No Lack of Food: Never True Current Housing: Decline to Answer Concerned About Future Housing: Decline to Answer Difficulty Paying Gas/Electric Bills: Decline to Answer Difficulty Paying for Meds: Decline to Answer Currently Unemployed: Decline to Answer Education: Decline to Answer Difficulty w/ Childcare or Family Care: Decline to Answer Living arrangements: with family Occupation/Education: retired Gender identity (if verbalized by the patient): Female Spiritual care concerns: No Agree to blood products: Yes Comments At the time of my signature, I reviewed and agree with the nursing past medical, surgical, social, and family history. There is no relevant family history pertinent to the patient complaint. Exam Const: General: cooperative, healthy appearing, comfortable, no acute distress, well developed, alert and well nourished Nutritional Appearance: well nourished Orientation/consciousness: patient oriented x3 Limitations: no limitations HENMT: Head: normal to inspection Ears: hearing grossly normal bilaterally, external ears normal, EAC's normal, mastoids normal, no periauricular adenopathy and TM abnormal erythematous on the left Mouth: Yes Normal oral and palatal mucosa present, Yes lip normal, Yes tongue normal and Yes moist mucous membranes Throat: posterior oropharynx normal, uvula midline and no uvular edema Eyes: General: appearance normal, both eyes and all related structures Alignment and Position: alignment normal Neck: Neck: normal visual inspection, full ROM, no lymphadenopathy and no meningeal signs Chest: Chest palpation & inspection: normal inspection of the chest Resp: Effort & Inspection: normal respiratory effort and able to speak in complete sentences Auscultation: clear to auscultation bilaterally, no crackles, no rales, no rhonchi and no wheezes Cardio: Rate: regular rate Skin: General skin exam: normal color and no rashes or lesions noted Neuro: General: patient oriented x3, gait normal, moves all extremities and no meningeal signs Cognition (Neuro): normal cognition Speech: normal speech Gait exam (Neuro): Normal gait present Extrem: General: normal to inspection, full ROM, capillary refill normal and normal gait Psych: Appearance: grossly normal and well kempt Mental Status: mental status grossly normal Speech and movement: Normal speech and movement present and Clear speech present Affect: normal affect Attitude: cooperative Course Course Level of Care: Express Care Visit Vital Signs Vital signs: Vital Signs Temperature 97.2 F L 10/07/24 18:39 Pulse Rate 80 10/07/24 18:39 Respiratory Rate 18 10/07/24 18:39 Blood Pressure 149/90 H 10/07/24 18:39 Pulse Oximetry 97 10/07/24 18:39 Oxygen Delivery Room Air 10/07/24 18:39 Temperature 97.2 F L 10/07/24 18:39 Pulse Rate 80 10/07/24 18:39 Respiratory Rate 18 10/07/24 18:39 Blood Pressure 149/90 H 10/07/24 18:39 Pulse Oximetry 97 10/07/24 18:39 Oxygen Delivery Room Air 10/07/24 18:39 Reviewed MDM - URI/Sore Throat MDM Narrative Medical decision making narrative: patient sitting in exam. Nontoxic, vitals stable. Patient no acute distress. Patient presents with 3 day history flu-like increasing left ear pain. Erythema noted to the left ear. Flu COVID strep were negative in clinic patient is appropriate for outpatient treatment with close follow-up. Discharge instructions reviewed with patient, as well as provided in writing per nursing staff. The instructions also include specific and strict return/GO TO THE ER as well as f/u information. All questions have been answered, and the patient deny any further questions with discharge and discharge plan. Some parts of this dictation were generated by voice recognition software and may contain typographical and/or grammatical inaccuracies. Differential Diagnosis Differential diagnosis: Likely upper respiratory infection, otitis media, sinusitis, viral infection, bronchitis, influenza and pharyngitis Lab Data Labs: Lab Results 10/07/24 10/07/24 Range/Units 19:06 19:14 POC Influenza A Ag Negative (Negative) POC Influenza B Ag Negative (Negative) POC SARS CoV-2 Ag Negative (Negative) POC Grp A Strep Screen Negative (Negative) Reviewed Critical Care Time Critical Care Time Critical Care Time: No Discharge Plan Discharge Clinical Impression: Acute left otitis media Upper respiratory infection Qualifiers: URI type: unspecified viral URI Qualified Code(s): J06.9 - Acute upper respiratory infection, unspecified Patient Disposition: Home, Self-Care Condition: Stable Instructions: Antibiotic Form, Ear Infection (GEN), Upper Respiratory Infection (DC) Additional Instructions: Your rapid strep swab was negative today at [facility]. A throat culture will be sent to the laboratory for further testing. If the test is positive, you will receive a phone call within 48 hours and an appropriate antibiotic will be initiated at that time. Your rapid COVID test were negative Your rapid flu test was negative It is very important to treat your symptoms. Drink plenty of water, Gatorade, Pedialyte, ice pops or Jell-O. -Alternate Tylenol and Motrin per package directions for fever or pain. You can alternate every 4 hours -Antihistamine medication such as Zyrtec/Claritin/Iwona during the day can help improve symptoms. -doing daily nasal irrigations can help relieve pressure your sinuses. Things like a Neti pot -Use Flonase twice a day for 5 days then daily to help reduce the inflammation and dry up your sinuses. -You can also use Mucinex. Be sure to drink plenty of water with this medication at least 8 ounces with every dose and it is important to drink 8 to 10 glasses of water per day. Water is a natural decongestant -Eat and drink things that are easy to swallow, like tea or soup, or popsicles. -Oral rinses such as: Salt water gargles and/or may use topical anesthetic (eg. Chloraseptic spray) or lozenges to relieve dryness or throat pain). -Frequent hand washing or hand forming operator is one of the best ways to prevent spread of infection. -Using a vaporizer or humidifier at night will also help thin secretions and help with coughing up phlegm. -Follow up with primary care provider in 7-10 days if condition is not improving - For new or worsening symptoms go directly to the nearest ER Patient Language: Arabic Prescriptions: New amoxicillin 875 mg tablet 875 mg PO Q12H Qty: 20 0RF No Action semaglutide 1 mg/dose (4 mg/3 mL) pen injector 0.25 mg subcut ONCE hydrochlorothiazide 12.5 mg tablet 12.5 mg PO DAILY Qty: 90 1RF nifedipine 60 mg tablet extended release 60 mg PO DAILY Qty: 90 1RF escitalopram oxalate [Lexapro] 10 mg tablet 10 mg PO DAILY Qty: 90 1RF Follow-up/Referrals: Gabriela Tomlinson APRN [Primary Care Provider] - 2 Weeks Time of Disposition: 19:13
[2024-10-07 19:16] LABS: EDCOVIDSCREEN Negative (Negative); EDINFLUASCREEN Negative (Negative); EDINFLUBSCREEN Negative (Negative)
== END 2024-10-07 19:17 | disposition home or self-care (01) ==
PROVIDERS: Emergency Provider Nurse Practitioner; PCP Nurse Practitioner Family
DX: H66.91 Otitis media, unspecified, right ear (principal); J06.9 Acute upper respiratory infection, unspecified; Z20.822 Contact with and (suspected) exposure to COVID-19; Z87.891 Personal history of nicotine dependence; I10 Essential (primary) hypertension; E78.5 Hyperlipidemia, unspecified; E66.9 Obesity, unspecified; Z68.34 Body mass index [BMI] 34.0-34.9, adult; M16.12 Unilateral primary osteoarthritis, left hip; M17.11 Unilateral primary osteoarthritis, right knee; F41.9 Anxiety disorder, unspecified; F32.A Depression, unspecified
CPT/HCPCS: 87081; 87426; 87804; 87880; 99213; G0463

== ENCOUNTER 2025-01-03 08:03 | Outpatient (CLI) | payer OTHER, SELFPAY ==
--- NOTE | ~2025-01-03 | MM_ITS ---
EXAMINATION: MM screening byron BI w giovanny HISTORY: Screening TECHNIQUE: Craniocaudal and mediolateral oblique 3-D tomosynthesis images were obtained and synthetic 2-D images were generated. CAD analysis was submitted and interpreted. COMPARISON: Comparison to multiple prior studies sequentially, with oldest reviewed study dated 05/16. BREAST PARENCHYMAL COMPOSITION: Not dense: There are scattered areas of fibroglandular density. FINDINGS: There is no evidence of suspicious mass, calcification, or architectural distortion to sugg est malignancy in either breast. There has been no suspicious interval change. IMPRESSION: 1. No mammographic evidence of malignancy. 2. Recommend routine screening mammography in one year. BI-RADS Category 1: Negative Reviewed, dictated and finalized at location []
--- OUTSIDE RECORDS SUMMARY | 2025-01-03 08:09 | XMS_ITS | Clinical Summary ---
Author Organization [facility] Infinancials Address [address] [place] [address] Care Team Providers Care Oyster Culler Name Role Phone Gabriela Tomlinson WARNING ANALYST-COOPERAGE SHOP SUPERVISOR Primary Care Provider Source Comments [facility],non-owned Affiliates and Associated Physician Practices is amultiple site organization consisting of ambulatory clinics and hospital sitesin [place], [place], [place] and [place]. This disclosure is being madepursuant to the Care Everywhere program and may not contain all information available regarding this patient. Last updated 18.[facility] [employer] Allergies No known active allergies Medications * Be aware that medications may not be up to date on this document. Alwaysverify current medications with the patient. amLODIPine (NORVASC) 5 MG tablet Take 10 mg by mouth 04/30/2018 Active lisinopril-hydro CHLOROthiazide (PRINZIDE; ZESTORETIC) 20-25 MG tablet Take 1 tablet by mouth once daily Active meloxicam (MOBIC) 7.5 MG tablet TAKE 1 TABLET BY MOUTH EVERY DAY 30 tablet 06/29/2020 Active Active Problems Problem Noted Date Diagnosed Date Left hip pain 06/13/2018 Immunizations Immunization Administration Dates Next Due INFLUENZA VACCINE, QUADR. (F LUZONE; FLULAVAL; FLUARIX; AFLURIA QUADRIVALENT; 6MO+), 0.5 ML (IIV4) 07/27/2018 Social History Tobacco Use Types Packs/Day Years Used Date Smoking Tobacco: Former Cigarettes Q uit: 2006 Smokeless Tobacco: Never Alcohol Use Standard Drinks/Week Comments Yes 1 (1 standard drink = 0.6 oz pur e alcohol) few times per week Comments No Sex and Gender Information Value Date Recorded Sex Assigned at Not on file Legal Sex Female 6:30 AM AIRCRAFT MAG[employer] Gender Identity Not on file Sexual Orientation Not on file Last Filed Vital Signs Vital Sign Reading Time Taken Comments Blood Pressure 134/92 07/28/2018 8:35 AM AIRCRAFT MAGNETO MECHANIC Pulse 83 07/28/2018 8:35 AM AIRCRAFT MAGNETO MECHANIC Temperature 36.4 C (97.6 F) 07/28/2018 8:35 AM AIRCRAFT MAGNETO MECHANIC Respiratory Rate 20 07/28/2018 8:35 AM AIRCRAFT MAGNETO MECHANIC Oxygen Saturation 97% 07/28/2018 8:35 AM AIRCRAFT MAGNETO MECHANIC Inhaled Oxygen Concentration - - Weight 99.8 [...] FLEX SIG - COLON CA SCREENING 1960 MAMMOGRAM 1960 PAP SMEAR 1960 HIV SCREENING 02/21/1975 HEPATITIS C SCREENING 02/17/1978 DTAP/TDAP/TD VACCINES (1 - Tdap) 02/21/1979 PNEUMOCOCCAL VACCINE 50+ (1 of 1 - PCV) 02/21/2010 ZOSTER VACCINE (1 of 2) 02/21/2010 SCREENING FOR DIABETES 07/28/2021 8, 07/16/2018 LIPID TESTING 10/30/2023 10/29/2018 COVID-19 VACCINE (1 - 2023-2 5 season) 2024 DEPRESSION SCREENING 08/14/2024 INFLUENZA VACCINE (Season Ended) 2025 07/27/2018 Respiratory Syncytial Virus (RSV) Vaccine Pt: or [...] complete this topic MENINGOCOCCAL (Group B) VACCINE SHARED DECISION-MAKING Aged Out No longer eligible based on patient's age to complete this topic MENINGOCOCCAL GROUPS A/C/Y/W VACCINE Aged Out No longer eligible b ased on patient's age to complete this topic Medical Devices Implanted Type Area Security Intern Device Identifier Shelf Expiration Date Model / Serial / Lot Shell Actb 52mm Hip 3 Hl Poly R3 Std Implanted:Qty: 1 on 07/26/2018 by Elbert Fisher MD at [facility] Left: Hip [employer] 01/05/2028 [id number] / / [id number] Description:AB R3 3 HOLD ACET SHELL 52MM--07/31 LG Screw 6.5mm 35mm Hip Actb Canc Sphrcl Implanted:Qty: 1 on 07/26/2018 by Elbert Fisher MD at [facility] Left: Hip [employer] 12/07/2026 [id number] / / [id number] Description:AB REF SPHER HEAD SCREW 35MM--18 LG Liner Actb R3 0d 52mm 36mm Xlpe Hip Flxb Implanted:Qty: 1 on 07/26/2018 by Elbert Fisher MD at [facility] Left: Hip [employer] 05/11/2028 [id number] / / [id number] Description:AB R3 0 DEG XLPE ACET LNR 36MM X 52MM --07/31 LG Head Fem +0mm 14 Tpr 36mm Hip Oxnm Implanted:Qty: 1 on 07/26/2018 by Elbert Fisher MD at [facility] Left: Hip [employer] 05/13/2028 [id number] / / [id number] Description:AB OXINIUM FEM HD 07/28 36 MM +0 --07/31 LG Polarstem Stem Std Ti/Nathan 3 Non-Jono Implanted:Qty: 1 on 07/26/2018 by Elbert Fisher MD at [facility] Left: Hip 04/07/2025 [id number] / / [id number] Description:AB STANDARD STEM Haja Oxinium Upchrg Implanted:Qty: 1 on 07/26/2018 by Elbert Fisher MD at [facility] Left: Hip [employer] OXINIUM UPCHG SNORTHO BILL ONLY / / Haja H1 Total Hip Implanted:Qty: 1 on 07/26/2018 by Elbert Fisher MD at [facility] Left: Hip [employer] TOTAL HIP H1 / / Procedures Procedure Name Priority Date/Time Associated Diagnosis Comments BASIC METABOLIC PANEL (CALCIUM TOTAL) AM Draw 07/28/2018 4:00 AM AIRCRAFT MAGNETO MECHANIC from Last 3 Months or Most Recently Relevant to Health Maintenance Results * (ABNORMAL) BASIC METABOLIC PANEL (CALCIUM TOTAL) (07/28/2018 4:00 AM AIRCRAFT MAGNETO MECHANIC) Glucose 115(H) 74 - 106 mg/dL 07/28/2018 4:49 AM AIRCRAFT MAGNETO MECHANIC [facility] Sodium 142 136 - 145 mmol/L 07/28/2018 4:49 AM AIRCRAFT MAGNETO MECHANIC [facility] Potassium 3.7 3.5 - 5.1 mmol/L 07/28/2018 4:49 AM AIRCRAFT MAGNETO MECHANIC [facility] Chloride 109(H) 98 - 107 mmol/L 07/28/2018 4:49 AM AIRCRAFT MAGNETO MECHANIC [facility] CO2 27 22 - 31 mmol/L 07/28/2018 4:49 AM AIRCRAFT MAGNETO MECHANIC [facility] Calcium 8.0(L) 8.5 - 10.1 mg/dL 07/28/2018 4:49 AM AIRCRAFT MAGNETO MECHANIC [facility] Anion Gap 6(L) 8 - 16 mmol/L 07/28/2018 4:49 AM AIRCRAFT MAGNETO MECHANIC [facility] BUN 11 7 - 21 mg/dL 07/28/2018 4:49 AM AIRCRAFT MAGNETO MECHANIC [facility] Creatinine 0.61 0.50 - 1.30 mg/dL 07/28/2018 4:49 AM AIRCRAFT MAGNETO MECHANIC [facility] eGFR by MDRD >60 >60 mL/min/1.7 3m2 07/28/2018 4:49 AM AIRCRAFT MAGNETO MECHANIC [facility] eGFR by MDRD >60 >60 mL/min/1.7 3m2 07/28/2018 4:49 AM AIRCRAFT MAGNETO MECHANIC [facility] Blood BLOOD SPECIMEN / Unknown Lab Venipuncture / Unknown 07/28/2018 4:00 AM AIRCRAFT MAGNETO MECHANIC 07/28/2018 4:21 AM AIRCRAFT MAGNETO MECHANIC Hi Haddad MD LAB - CHEMISTRY ORDERABLES Fin al Result [facility] [address] [place] [address] from Last 3 Months or Most Recently Relevant to Health Maintenance Insurance [facility] Advance Directives * Full Code (Latest Code Status on File) Date Activated Date Inactivated Comments 07/26/2018 3:27 PM 07/28/2018 11:36 AM Care Teams Oyster Culler Relationship Specialty Start Date End Date Gabriela Tomlinson, WARNING ANALYST-COOPERAGE SHOP SUPERVISOR [address] [place], [place] [id number] PCP - General 11/13/18
--- OUTSIDE RECORDS SUMMARY | 2025-01-03 08:09 | XMS_ITS | Data Portability ---
Author Organization [place] [facility], Main Office Address [address] [place] [address] Care Team Providers Care Welding Equipment Sales Representative Name Role Phone GABRIELA LOPEZ Primary Care Provider GABRIELA LOPEZ Referring Provider [phone] Assessment Encounter Date Assessment Date Assessment LastModified [...] Pt verbalized understanding it. F/u as directed. [email or web address] Not available 12/14/2022 17:14:14 05/16/2023 05/16/2023 D/w pt about her findings and further plan of care. Meds as directed. OTC symptomatic Rx explained in detail. Very good liquid intake explained. Proper hand hygiene explained. Educated about alarming symptoms to monitor at home and call us back Or get checked in ED if any concerns. F/u as directed. [email or web address] Not available 05/16/2023 16:41:33 Plan of Treatment Reminders Order Date Submit Date Provider Last Modified By Organization Details Last Modified Time Details Appointments None recorded. Lab None recorded. Referral None recorded. Procedures None recorded. Surgeries None recorded. Imaging None recorded. Medication Orders azithromyci n 250 mg tablet 2022 023 [facility] #05072, [address], [place], [id number], 16:54:32 Medrol (Jude) 4 mg tablets in a dose pack 2022 023 [facility] #83116, [address] [facility], [place], [place], [id number], 3 16:54:30 benzonatate 200 mg capsule 2022 023 [facility] #48865, [address] [facility], [place], [place], [id number], 16:54:28 Wegovy 0.25 mg/0.5 mL subcutaneou s pen injector 2022 023 [email or web address] [facility] [employer] [facility] #46852, [address] [facility], [place], [place], [id number], 14:24:40 valacyclovi r 1 gram tablet 2022 023 [facility] #05807, [address] [facility], [place], [place], [id number], 3 16:31:09 gabapentin 300 mg capsule 2022 023 [facility] #81799, [address] [facility], [place], [place], [id number], 3 16:51:57 valacyclovi r 1 gram tablet 2022 023 [facility] #45723, [address] [facility], [place], [place], [id number], 3 16:31:09 gabapentin 300 mg capsule 2022 023 [email or web address] [facility] #34110, [address] [facility], [place], [place], [id number], 3 13:04:16 prednisone 20 mg tablet 2022 023 [email or web address] [facility] #08986, [address] [facility], [place], [place], [id number], 3 17:14:40 Patient TargetsNo targets recorded. Patient Instructions Encounter Date Encounter Id Patient Instructions Last Modified By Organization Details Last Modified Time 12/06/2022 [id number] FU prn. [email or web address] Not available 12/06 13:20:42 08/18/2023 [id number] fu in 2-4 weeks for bp, labs, [...] stimulatin g hormone level below reference range 183246294 Active 2021 Not Available [facility] 3 00:45:27 Puncture wound of foot 26347121 Active 2021 Not Available [facility] 3 00:45:27 Low back pain 931821399 Active 2020 Not Available [facility] 3 00:45:27 Foreign body of foot 865967809 Active 2022 Not Available [facility] 3 00:45:27 Abscess of foot 882140477 Active 2021 Not Available [facility] 3 00:45:27 Family history of cancer of colon 340260885 Active 2017 Not Available [facility] 3 00:45:27 Pain in left foot 6777868167700 07 Active 2021 Not Available [facility] 3 00:45:27 Pain of left hip joint 7758757778377 00 Active 2017 Not Available [facility] 3 00:45:27 Obese 125850972 Active 2022 Not Available [facility] 3 00:45:28 Neuroma of foot 361071606 Active 2022 Not Available [facility] 3 00:45:28 History of malignant neoplasm of colon 580784594 Active 2017 Not Available [facility] 3 00:45:28 Swelling of lower leg 284067408 Active 2021 Not Available [facility] 3 00:45:28 Essential hypertensi on 53666076 Active 2017 Not Available [facility] 3 00:45:28 Tinea pedis 8597424 Active 2021 Not Available [facility] 3 00:45:28 Abscess of skin and/or subcutaneo us tissue 80400654 Active 2022 Luis Eduardo Lucero DPM [address], [place], [address] , [place] [facility] 3 09:27:08 Retained foreign body in foot 966684149 Active 2022 Luis Eduardo Lucero DPM [address], [place], [address] , [place] [facility] 3 09:29:28 Postoperat rajesh care Active 2022 Luis Eduardo Lucero DPM [address], [place], [address] , [place] [facility] 3 14:35:34 Hordeolum externum of upper eyelid of left eye 1032214097523 02 Active 2022 Gabriela Lopez NP [address], [place], [address] , [place] [facility] 3 16:54:38 Herpes zoster 5375982 Active 2022 Gabriela Lopez NP [address], [address], [place], [address] , [place] [facility] 3 11:07:01 Neuropathy 514126288 Active 2022 Jonathan Boone MD [address], [place], [address] , [place] [facility] 3 16:49:52 Post-herpe tic polyneurop athy 33811413 Active 2022 Jonathan Boone MD [address], [place], [address] , [place] [facility] 17:14:26 Obesity 669362072 Active 2022 Jonathan Boone MD [address], [address], [place], [address] , [place] [facility] 3 17:15:18 Occult blood detected in feces 59586732 Active 2022 Gabriela Lopez NP [address], [place], [address] , [place] [facility] 17:50:45 Tachycardi a 7938993 Active 2022 Gabriela Lopez NP [address], [place], [address] , [place] [facility] 3 17:51:31 Anxiety 62391156 Active 2022 Gabriela Lopez NP [address], [place], [address] , [place] [facility] 3 13:02:07 Cough 49376016 Active 2022 Jonathan Boone MD [address], [place], [address] , [place] [facility] 3 16:41:39 Bronchitis 12158807 Active 2022 Jonathan Boone MD [address], [place], [address] , [place] [facility] 3 16:42:10 Nasal congestion 42471467 Active 2022 Jonathan Boone MD [address], [place], [address] , [place] [facility] 16:42:31 Fatigue 49118890 Active 2022 Jonathan Boone MD [address] [facility], [facility] [address], [place], [address] , [facility] 16:57:52 Notes:cardiac issues - had a blation colon cancer & rectal cancer Problem Notes None recorded. Procedures Surgical History Date Name Laterality Status Provider Name and Address Organization Details Recorded Time 11/11/19 22 Colonoscopy completed Not Available [facility] 10/13/19 00:41:56 11/17/19 21 Date of Last Pap Smear completed Not Available [facility] 10/12/2022 00:41:51 07/14/20 18 Hip surgery completed Not Available [facility] 10/13/19 00:41:56 Gallbladder Surgery completed Not Available [facility] 10/12/2022 00:41:56 Colon Surgery completed Not Available [facility] 10/12/2022 00:41:56 Knee Replacement completed Not Available [facility] 10/12/2022 00:41:56 Imaging Results None recorded. Procedure Notes None recorded. Medical Equipment None Reported. 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 57 g 98.2 [degF] 79 /min 16 /min 97 % 97 % 178 mm[Hg] 98 mm[Hg] Gabriela Dave RN [place] [facility] 3 10:51:43 Date Recorded Body height Body mass index (BMI) Body weight Body temperature Heart rate Respiratory rate Oxygen saturation Oxygen saturation in Arterial blood by Pulse oximetry Systolic blood pressure Diastolic blood pressure Provider Name and Address Organization Details Last Updated DateTime 3 170.18 cm 35.7 kg/m2 076600. 06 g 97.7 [degF] 75 /min 16 /min 98 % 98 % 124 mm[Hg] 76 mm[Hg] Sandrita Armendariz RN [facility] [employer] [facility] 3 16:45:14 Date Recorded Body height Body mass index (BMI) Body weight Body temperature Heart rate Respiratory rate Oxygen saturation Oxygen saturation in Arterial blood by Pulse oximetry Systolic blood pressure Diastolic blood pressure Provider Name and Address Organization Details Last Updated DateTime 3 170.18 cm 35.8 kg/m2 424698. 81 g 97.9 [degF] 83 /min 16 /min 98 % 98 % 144 mm[Hg] 98 mm[Hg] Gabriela Dave RN [facility] [employer] [facility] 3 16:33:38 Date Recorded Body height Body mass index (BMI) Body weight Body temperature Heart rate Oxygen saturation Oxygen saturation in Arterial blood by Pulse oximetry Provider Name and Address Organization Details Last Updated DateTime 3 170.18 cm 35.6 kg/m2 625922. 47 g 98.1 [degF] 86 /min 98 % 98 % Raul Florez [facility] [employer] 3 16:38:42 Date Recorded Respiratory rate Systolic blood pressure Diastolic blood pressure Provider Name and Address Organization Details Last Updated DateTime 05/16/2023 20 /min 136 mm[Hg] 80 mm[Hg] Jonathan Boone MD [address] [place] [address], [address], [facility] 05/16/2023 16:41:28 Date Recorded Body height Body mass index (BMI) Body weight Body temperature Heart rate Oxygen saturation Oxygen saturation in Arterial blood by Pulse oximetry Systolic blood pressure Diastolic blood pressure Provider Name and Address Organization Details Last Updated DateTime 4 170.18 cm 38.8 kg/m2 036745. 91 g 98.4 [degF] 76 /min 98 % 98 % 170 mm[Hg] 110 mm[Hg] Lacie Zavala MA [facility] 4 12:28:06 Social History Question Answer Notes LastModified by Organizat ion Details LastModified Time Tobacco Smoking Status Former Smoker Not Available [facility] 10/12/2022 00:40:45 Do You Have An Advance Directive? No Information not available 12/06/2022 Is Blood Transfusion Acceptable In An Emergency? Yes Information not available 12/06/2022 What Is Your Level Of Caffeine Consumption? None [id number].[id number] Information not available 10/12/2022 What Is Your Code Status? DNI Information not available 12/06/2022 In The 14 Days Before Symptom Onset, Have You Had Close Contact With A Laboratory-confi rmed COVID-19 While That Case Was Ill? No MIGRATION.20114 [id number] Information not available 10/12/2022 In The 14 Days Before Symptom Onset, Have You Had Close Contact With A Person Who Is Under Investigation For COVID-19 While That Person Was Ill? No MIGRATION.69356 50971 Information not available 10/12/2022 What Type Of Diet Are You Following? REGULAR MIGRATION.84818 62282 Information not available 10/12/2022 Which Illicit Or Recreational Drugs Have You Used? None MIGRATION.72560 06895 Information not available 10/12/2022 Have There Been Any Changes To Your Family Or Social Situation? No Information not available 11/29/2022 When Did You Quit Smoking? 6-10yearssincelastc igarette Information not available 11/29/2022 Do You Use Insect Repellent Routinely? No Information not available 11/29/2022 Where Do You Live? SingleLevelHouse Information not available 11/29/2022 Do You Have A Medical Power Of Self Defense Instructor? No Information not available 12/06/2022 What Was The Date Of Your Most Recent Tobacco Screening? 02/28/2022 MIGRATION.04007 33586 Information not available 10/12/2022 How Many Children Do You Have? 0 Information not available 11/29/2022 Have You Ever Been Counseled For Unhealthy Alcohol Use? No MIGRATION.24511 90075 Information not available 10/12/2022 Do You Have [...] available 11/29/2022 Do You Participate In Social Media? Yes Information not available 11/29/2022 Do You Use Sunscreen Routinely? Yes Information not available 11/29/2022 Has Tobacco Cessation Counseling Been Provided? No MIGRATION.25211 33729 Information not available 10/12/2022 Have You Recently Traveled Abroad? No Information not available 11/29/2022 Sex: Unknown Functional Status Question Answer Note LastModified by Organizat ion Details LastModified Time Do you use any illicit or recreational drugs? No MIGRATION.641369 0565 Information not available 10/12/2022 Do you or have you ever used any other forms of tobacco or nicotine? No MIGRATION.888503 2376 Information not available 10/12/2022 What is your level of alcohol consumption? Occasional MIGRATION.549782 4327 Information not available 10/12/2022 Are you currently employed? 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 Never used electronic cigarettes MIGRATION.620917 2685 Information not available 10/12/2022 What is your exercise level? Moderate MIGRATION.994254 1464 Information not available 10/12/2022 Mental Status Question Answer Note LastModified by Organization D etails LastModified Time Do you feel stressed (tense, restless, nervous, or anxious, or unable to sleep at night)? [id number] [facility] Information not available 12/06/2022 Family History Relationship Description Onset Age of this Age Resolved Age Notes LastModified by Organization Details LastModified Time Unspecified Relation Heart disease MIGRATION.258 [id number] Not available 10/12/2022 00:41:58 Mother Hypertensive disorder MIGRATION.989 [id number] Not available 10/12/2022 00:41:58 Mother Family history of stroke MIGRATION.349 [id number] Not available 10/12/2022 00:41:58 Mother Arthritis MIGRATION.107 [id number] Not available 10/12/2022 00:41:58 Father Family history of malignant neoplasm MIGRATION.556 [id number] Not available 10/12/2022 00:41:59 Father Arthritis MIGRATION.424 [id number] Not available 10/12/2022 00:41:59 Maternal Grandfather Diabetes mellitus MIGRATION.629 [id number] Not available 10/12/2022 00:41:59 Notes:Father- Believes he alexandra d colon cancer but was not checked. Medical History Condition Response CANCER: SPECIFY Y CARDIAC ARRHYTHMIA Y ARTHRITIS Y SHINGLES Y DEPRESSION (INCLUDING POST ) Y HYPERTENSION Y Gynecological History Statement/Question Response Abnormal Pap [...] (COVID-19) vaccine, UNSPECIFIED 1 completed Not Available [facility] 10/12/2022 00:49:39 SARS-COV-2 (COVID-19) vaccine, UNSPECIFIED 1 completed Not Available [facility] 10/12/2022 00:49:40 Influenza, split virus, quadrivalent, preservative 9 completed Not Available [facility] 10/12/2022 00:49:40 Influenza, split virus, quadrivalent, PF 0 completed Not Available [facility] 10/12/2022 00:49:40 Influenza, split virus, quadrivalent, PF 9 completed Not Available [facility] 10/12/2022 00:49:40 Tdap 8 completed Not Available [facility] 10/12/2022 00:49:41 Influenza, split virus, quadrivalent, PF 4 completed TERESA Avalos[place] [facility] 08/21/2023 09:14:21 Past Encounters Encounter ID Performer Location Encounter Start Date Encounter Closed Date Diagnosis/Indication Diagnosis SNOMED-CT Code Diagnosis ICD10 Code Diagnosis Note [id number] Spencer Vuong MD [facility] [address] [place] [address] 10/12/2020 00:00:00 10/12/2020 15:19:50 [id number] Spencer Vuong MD [facility] [place] [address] [place] [address] 11/09/2020 00:00:00 11/09/2020 16:11:19 [id number] [facility] ic_[facility] _ATHENA_M IGRATION_ DEFAULT_1 _1 , 11/16/2020 00:00:00 11/16/2020 12:20:25 [id number] Jonathan Boone MD [facility] [address] [place] [address] 01/13/2021 00:00:00 01/13/2021 10:38:10 [id number] Jonathan Boone MD [facility] [address] [place] [address] 04/14/2021 00:00:00 04/14/2021 12:58:54 [id number] Jonathan Boone MD [facility] [address] [place] [address] 06/29/2021 00:00:00 06/29/2021 15:32:19 [id number] Jonathan Boone MD [facility] [address] [place] [address] 08/31/2021 00:00:00 08/31/2021 15:39:32 [id number] Gabriela Lopez NP [facility] [address] [place] [address] 02/18/2022 00:00:00 02/18/2022 16:43:44 [id number] Luis Eduardo Lucero DPM [facility] [place] [address] [address] 02/28/2022 00:00:00 02/28/2022 09:10:31 [id number] Luis Eduardo Lucero DPM [facility] [place] [address] [place] [address] 03/10/2022 00:00:00 03/10/2022 10:26:40 [id number] Luis Eduardo Lucero DPM [facility] [place] [address] [address] 03/28/2022 00:00:00 03/28/2022 09:18:52 [id number] Luis Eduardo Lucero DPM [facility] [place] [address] [place] [address] 09/19/2022 00:00:00 09/19/2022 11:29:28 [id number] Jonathan Boone MD S_[address] [address] 10/07/2022 00:00:00 10/07/2022 15:34:47 [id number] Luis Eduardo Lucero DPM [facility] [place] [address] [place] [address] 10/10/2022 00:00:00 10/26/2022 14:22:14 [id number] Luis Eduardo Lucero DPM [facility] [place] [address] [place] [address] 11/03/2022 08:50:42 11/03/2022 11:21:18 Retained foreign body in foot 285723498 Z18.9 MRI reviewed with the patientTre atment [...] 11/11/2022 Abscess of skin and/or subcutaneous tissue 19312373 L02.91 As above [id number] Luis Eduardo Lucero DPM [facility] [place] [address] [place] [address] 11/14/2022 12:12:00 11/15/2022 12:21:34 Postoperative care 136373206 Z48.89 Status post 3 daysdressi ng changeinci sional area cleaned with ChloraPrep dressings to stay clean dry for 1 weekMinima l weightbear Continue use of postop shoe weight-delaney ringFollow -up 1 week- dressing change [id number] Luis Eduardo Lucero DPM [facility] [place] [address] [place] [address] 11/21/2022 12:13:39 11/21/2022 14:44:51 Postoperative care 898915687 Z48.89 Status post 10 daysdressi ng changeinci sional area cleaned with ChloraPrep dressings to stay clean dry for 1 weekMinima l weightbear Continue use of postop shoe weight-delaney ringFollow -up 1 week- dressing change [id number] Gabriela Lopez NP S_[address] [address] 11/29/2022 15:57:49 11/29/2022 17:04:28 Essential hypertension 71555931 I10 Nifedipine ER 60 mg tablet. Obese 849564249 E66.9 wegovy denied. Phentermin e- BP raised. Contraindi cation to lexapro with contrave. Try on qsymia 7.5 mg-46 mg cap po daily for 12 weeks. No Xenical due to previous colon cancer and had part of rectum removed. Concern for stool leakage. Hordeolum externum of upper eyelid of left eye 2031273188 99171 H00.014 bid for 5 days erythromyc in. pt has at home. [id number] Luis Eduardo Lucero DPM [facility] [place] [address] [place] [address] 12/05/2022 11:12:04 12/05/2022 11:49:53 Postoperative care 522260914 Z48.89 Status post - Soft tissue removalpat hology reviewed with the patient benignsutu res removedmay continue to show are no soaking for 4 weeksfollo w-up as needed [id number] Gabriela Lopez NP [address] [address] 12/06/2022 10:38:14 12/06/2022 13:00:59 Herpes zoster 7507562 B02.9 Valtrex 1 gm po bid for 10 days.Gabap entin 300 mg po nightly.Pr ednisone 20 mg po x 5 days in the morningOnc e rash gone for >30 days, get shingrix vaccine [id number] Jonathan Boone MD [address] [address] 12/14/2022 16:38:32 12/14/2022 17:16:46 Herpes zoster 3733700 B02.9 Neuropathy 589140670 G62 .9 Post-herpe tic polyneuropathy 58730285 B02.23 Obesity 288963381 E66.9 [id number] Gabriela Lopez NP [address] [address] 01/13/2023 16:26:15 01/13/2023 17:09:46 Obese 757670378 E66.9 wegovy denied. Phentermin e- BP raised. Contraindi cation to lexapro with contrave. Try on qsymia 7.5 mg-46 mg cap po daily for 12 weeks. No Xenical due to previous colon cancer and had part of rectum removed. Concern for stool leakage. 01/13/23 having side effects of qsymia. Pt to stop and will retry script for wegovy. Post-herpe tic polyneuropathy 40405671 B02.23 gabapentin 300 mg po tid- improved. [id number] Jonathan Boone MD [address] [address] 05/16/2023 16:21:41 05/16/2023 17:01:37 Cough 21735882 R05.9 Bronchitis 04018581 J40 Nasal congestion 8243021 0 R09.81 Fatigue 61230465 R53.83 [id number] Gabriela Lopez NP [facility] [address] [place] [address] 08/18/2023 12:18:00 08/18/2023 14:12:27 Administration of influenza vaccine 87920250 Z23 Obese 502432781 E66.9 wegovy denied. Phentermin e- BP raised. [...] will get with new provider. Essential hypertension 96589379 I10 Nifedipine ER 60 mg tablet.Hig h [...] ID Guarantor Name 12/06/2022 1 [facility] () Archana Jones [id number] Archana Jones 12/14/2022 1 [facility] Archana Jones [id number] Archana Jones 01/13/2023 1 [facility] () Archana Jones [id number] Archana Jones 05/16/2023 1 [facility] Archana Jones [id number] Archana Jones 08/18/2023 1 [facility] () Archana Jones [id number] Archana Jones Notes Date Note Type Note [...] to clean out. Gabriela Lopez NP [address] [address], [place], [address], [employer] 12/06/2022 13:20:58 12/14/2022 text/html ACV:Here with mahogany crowe. C/o rash over her Rt side of chest and Rt upper back for last 11 days. Pt denies any known sick contact/recent outside travel. C/o burning pain over the area since than. Pt has tried few different meds for this and she is doing overall better now. No other concern. Jonathan Boone MD [address] [facility] [address], [place], [address], [employer] 12/14/2022 17:15:37 01/13/2023 text/html Here for weight check and med checks. Has been doing low carb diet and drinking 60+ ounces water daily, exercising routinely. Walking 3 miles 4 days weekly.Has extreme heartburn and having to have nexium daily. Wakes her up at night and interrupted sleep is not conducive to daily functioning. Has not lost weight on the medication. Previously, wegovy denied. Phentermine- BP raised. Contraindication to lexapro with contrave. Try on qsymia 7.5 mg-46 mg cap po daily for 12 weeks. No Xenical due to previous colon cancer and had part of rectum removed. Concern for stool leakage. Foot is all better. Feeling like she is coming out of her funk . Gabriela Lopez NP [address] [facility] [address], [place], [address], [employer] 01/13/2023 16:58:10 05/16/2023 text/html ACV: C/o cough and congestion for last 10 days. 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 Denies any known sick contact/covid concern. Denies any other symptoms. Jonathan Boone MD [address] [facility], [place], [address], [employer] [facility] [employer] 05/16/2023 16:59:30 08/18/2023 text/html Here for check u p. Wants shingrix, but wasn't aware it's only avail at pharmacy. Home bp 128/75, generally 130/80. high today. not sure why. Did just take medication < 1 hr ago. Still seeing rural carrier. Gabriela Lopez NP [address], [facility], [place], [address], [employer] [facility] [employer] 08/18/2023 14:05:52 OBGyn Episode No OBEpisode recorded.
--- OUTSIDE RECORDS SUMMARY | 2025-01-03 08:09 | XMS_ITS | Referral Summary ---
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 Gender Identity Not on file Sexual Orientation [...] on file Medical Devices Implanted Type Area Operations Superintendent Device Identifier Shelf Expiration Date Model / Serial / Lot Synthes Screw Bone Compression Cannulated Long Thread 3.0x34mm Ti - [id number] Implanted:Qty: 1 on 04/02/2024 by Romario Dorsey MD at [facility] S[employer] I / / Synthes Screw Bone Compression Cannulated Long Thread 3.0x22mm Ti - [id number] Implanted:Qty: 1 on 04/02/2024 by Romario Dorsey MD at [facility] [employer] / / Synthes Screw Bone Compression Cannulated Long Thread 3.0x20mm Ti - [id number] Implanted:Qty: 1 on 04/02/2024 by Romario Dorsey MD at [facility] [employer] I / / Insurance [facility] WORKERS COMPENSATION [employer] Advance Directives For more information, please contact: [phone] * Full Code (Latest Code Status on File) Date Activated Date Inactivated Comments 04/02/2024 1:39 PM 04/03/2024 5:23 PM * Full Code Date Activated Date Inactivated Comments 04/02/2024 1:01 AM 04/02/2024 1:39 PM Care Teams Milk Bottling Machine Operator Relationship Specialty Start Date End Date Gabriela Tomlinson NP PCP - General Nurse Practitioner 10/25/18
--- OUTSIDE RECORDS SUMMARY | 2025-01-03 08:09 | XMS_ITS | Continuity of Care Document ---
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 Name Role Phone DOD-[facility] Unavailable Unavailable Problems [...] of ambien, follow up as needed DoD BENIGN SKIN NEOPLASM SUBCUTANEOUS LIPOMA Active Condition DoD METRORRHAGIA Active Condition trial o f OCP's, CBC to r/o anemia, follow up as needed DoD ESSENTIAL HYPERTENSION Active Condition complete 5 day BP check DoD visit for: screening exam malignant neoplasm breast Inactive Condition DoD visit for: screening exam for malignant neoplasm cervix Inactive Condition DoD excessive bleeding during period (menorrhagia) Active Condition DoD visit for: laboratory Inactive Condition DoD MENOPAUSE Active Condition DoD DEPRESSION Active Condition DoD Medications Combined list of [...] ORAL, [employer], 20 ea. BOTTLE Active [id number] 4 2023 10 Pharmac y Data Transac tion Service Facilit y DOXYCYCLINE HYCLATE (doxycyclin e hyclate), 100 MG, CAPSULE, ORAL, [employer], 500 ea. BOTTLE Active [id number] 4 2023 10 Pharmac y Data Transac tion Service Facilit y DOXYCYCLINE HYCLATE (doxycyclin e hyclate), 100 MG, TABLET, ORAL, [employer]MA [employer], 50 ea. BOTTLE Active [id number] 4 2023 20 Pharmac y Data Transac tion Service Facilit y escitalopra m 10 mg tablet See Instruct ions, # 90 EA, 1 total refill(s ), Acute Complet ed 10/06/2023 3 2023 90.0 Ambulat ory Pharmac y ESCITALOPRA M OXALATE (escitalopr am oxalate), 10 MG, TABLET, ORAL, [facility] [facility], 1000 ea. BOTTLE Active [id number] 4 2023 90 Pharmac y Data Transac tion Service Facilit y ESCITALOPRA M OXALATE (escitalopr am oxalate), 10 MG, TABLET, ORAL, [employer] [facility], 1000 ea. BOTTLE Active [id number] 4 2023 90 Pharmac y Data Transac tion Service Facilit y FAMOTIDINE (FAMOTIDINE ), 20MG, TABLET, ORAL, IVAX PHARMACEUT, 100 ea. BOTTLE Active [id number] 4 2023 30 Pharmac y Data Transac tion Service Facilit y HYDROCHLORO THIAZIDE (HYDROCHLOR OTHIAZIDE), 12.5MG, TABLET, ORAL, ACTAVIS ELIZABE, 100 ea. BOTTLE Active [id number] 4 2023 90 Pharmac y Data Transac tion Service Facilit y metroNIDAZO LE 1% topical gel APPLY TO RED AREAS ON FACE DAILY, # 60 g, 3 total refill(s ), Acute Complet ed 02/09/2023 2 2022 60.0 Ambulat ory Pharmac y NIFEDIPINE ER (nifedipine ), 60 MG, TAB ER 24, ORAL, [employer] [place] [facility], 100 ea. BOTTLE Active [id number] 4 2023 90 Pharmac y Data Transac tion Service Facilit y OSELTAMIVIR PHOSPHATE (oseltamivi r phosphate), 75 MG, CAPSULE, ORAL, AMNEAL PHARMACE, 10 ea. BLIST PACK Active [id number] 4 2023 10 Pharmac y Data Transac tion Service Facilit y PREDNISONE (prednisone ), 20 MG, TABLET, ORAL, NOVITIUM/AN I PH, 500 ea. BOTTLE Active [id number] 4 2023 20 Pharmac y Data Transac tion Service Facilit y PROAIR RESPICLICK (ALBUTEROL SULFATE), 90 MCG, AER VALERIY BA, INHALATION, [facility], 1 ea. AER W/ADAP Active [id number] 4 2023 1 Pharmac y Data Transac tion Service Facilit y ROSUVASTATI N CALCIUM (rosuvastat in calcium), 5 MG, TABLET, ORAL, [employer]ARM[facility], 90 ea. BOTTLE Active [id number] 4 2023 90 Pharmac y Data Transac tion Service Facilit y Allergies, Adverse Reactions, Alerts Combined list of allergies from Department of Defense and Veterans Affairs facilities. It does not include entries that were removed or entered in error. Substance Category Reaction Severity Reaction type Status Date Reported Comments Source No Known Allergies Drug allergy (disorder) active 08/22/[address] [place] [address]) Encounters Combined list of: 1) Encounters from Department of Veterans Affairs facilities going backup to the last 18 months, not all [place] inpatient encounters are included; 2) Encounters from the Department of [facility] facilities going backup to 280 months. Location Location Details Encounter Type Encounter Number Reason For Visit Attending Provider ADM Date DC Date Status Disposition Source [address] [place] [address])([facility] Non-GME F[facility]2) OUTPATIENT [id number] [place] ISSUE/E TC PT WOULDN' T DISCLOS E TO APPT. PROPERTY CLAIMS MANAGER? JANIS OJEDA 06/14 Released w/o Limitations [address] [place] [address] [facility])(F amily Practic e Non-GME FHI2) [address] [place] [address] [facility])([facility] Non-GME FHI1) OUTPATIENT [id number] annual pap [facility] 07/11 Released w/o Limitations [address] [place], [place] [address] Practic e Non-GME FHI1) [address] [place] [address])([facility] Non-GME [facility]2) OUTPATIENT [id number] growth on stomach JANIS OJEDA 02/09 Released w/o Limitations [address] [place] [address] [facility])(F amily Practic e Non-GME FHI2) [address] [place] [address] [facility])(Fam andrea Practice Non-GME FHI2) TELE CONSULT [id number] needs ultraso und ordered KELLI BUTLER 02/[address] [place] [address])(F amily Practic e Non-GME FHI2) [address] [place] [address])([facility] Non-GME FHI2) OUTPATIENT [id number] swollen lymph nodes CHELSEY CARBAJAL 02/23 Released w/o Limitations [address] [place] [address])(F amily Practic e Non-GME FHI2) [address] [place] [address])([facility] Non-GME FHI2) TELE CONSULT [id number] U/S RESULTS KELLI BUTLER 03/[address] [place] [address])(F amily Practic e Non-GME FHI2) [address] [place] [address])(Communications Planner ecology) OUTPATIENT [id number] well woman exam GABBIE BENITES 08/22 Released w/o Limitations [address] [place] [address])(G ynecolo gy) Procedures Combined list of: 1) Procedures from Department of Veterans Affairs facilities going back up to thelast 18 months, not all VA non-surgical procedures are included; 2) All procedures from the Department of Defense facilities. Procedure Procedure Type Code Date Perfomer Comments Sourc e No data available for this section Ambulato ry Pharmacy Screening papanicolaou smear; obtaining, preparing and conveyance of cervical or vaginal smear to laboratory 5 GABBIE BENITES [facility] Cervical Pap Smear Cervical Pap Smear [id number] 5 [facility] DoD Screening papanicolaou smear; obtaining, preparing and conveyance of cervical or vaginal smear to laboratory 5 [facility] SCREENING PAPANICOLAOU SMEAR; OBTAINING, PREPARING AND CONVEYANCE OF CERVICAL OR VAGINAL SMEAR TO LABORATORY 5 DoD SCREENING PAPANICOLAOU SMEAR; OBTAINING, PREPARING AND CONVEYANCE OF CERVICAL OR VAGINAL SMEAR TO LABORATORY 5 DoD INFUSION, NORMAL SALINE SOLUTION , 1000 CC 5 DoD INFUSION, NORMAL SALINE SOLUTION, 250 CC 4 DoD Social History Combined list of available smoking, tobacco, and other social history from Department of Defense and Veterans Affairs facilities. Social History Type Response Date Comment Sour e This section is an empty social history section. DoD Assessment and Plan Combined list of future care activities from Department of Defense and Veterans Affairs facilities (e.g., assessment and plan notes, appointments, orders, and referrals). Additional future care activities may be listed in the Plan of Care section. Result Assessment and Plan Date Source Assessment and Plan No data available for this section 01/03/2025 Ambulatory Pharmacy Functional Status Combined list of recent functional and cognitive assessments recorded at Department of Defense and Veterans Affairs ([place]).VA Functional [place] Measurement (FIM) Scale: 1 = Total Assistance (Subject = 0% +), 2 = Maximal Assistance (Subject = 25% +), 3 = Moderate Assistance (Subject = 50% +), 4 = Minimal Assistance (Subject = 75% +), 5 = Supervision, 6 = Modified Mesa (Device), 7 = Complete Mesa (Timely, Safely). Assessment Date/Time Source Assessment Type Assessment Skill Assessment Score Assessment Details No data available for this section
--- OUTSIDE RECORDS SUMMARY | 2025-01-03 08:09 | XMS_ITS | Clinical Summary ---
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 Gender Identity Not on file Sexual Orientation [...] Vaccine (1 of 2) 02/21/2010 Influenza Vaccine (Season Ended) 2025 08/18/2023, 05/21/2020, 06/07/2019, Additional history exists DTaP/Tdap/Td Vaccine (2 - Td or Tdap) 07/13/2028 07/13/2018 Pneumococcal vaccine <65 Aged Out No longer eligible based on patient's age to complete this topic Medical Devices Implanted Type Area Fractionation Plant Supervisor Device Identifier Shelf Expiration Date Model / Serial / Lot Synthes Screw Bone Compression Cannulated Long Thread 3.0x34mm Ti 334.234 - [id number] Implanted:Qty: 1 on 04/02/2024 by Romario Dorsey MD at [facility] Synthe[employer] I [id number] / / Synthes Screw Bone Compression Cannulated Long Thread 3.0x22mm Ti 222 - [id number] Implanted:Qty: 1 on 04/02/2024 by Romario Dorsey MD at [facility] [employer] I [id number] / / Synthes Screw Bone Compression Cannulated Long Thread 3.0x20mm Ti 220 - [id number] Implanted:Qty: 1 on 04/02/2024 by Romario Dorsey MD at [facility] [employer] I [id number] / / [facility] WORKERS COMPENSATION [facility] [employer]TE BRIAN Advance Directives For more information, please contact: [phone] * Full Code (Latest Code Status on File) Date Activated Date Inactivated Comments 04/02/2024 1:39 PM 04/03/2024 5:23 PM * Full Code Date Activated Date Inactivated Comments 04/02/2024 1:01 AM 04/02/2024 1:39 PM Care Teams Rodeo Performer Relationship Specialty Start Date End Date Gabriela Tomlinson NP PCP - General Nurse Practitioner 10/25/18
--- OUTSIDE RECORDS SUMMARY | 2025-01-03 08:10 | XMS_ITS | CONTINUITY OF CARE DOCUMENT ---
Author Name leonard valle Address Unknown Organization [facility] Address [address] [place] [address] [address] [place] [address] Phone [phone] Care Team Providers Care Welder Setter Electron Beam Machine Name Role Phone Curtis Gonzalez MD Unavailable Curtis Gonzalez MD Unavailable INSURANCE PROVIDERS Payer name Policy type / Coverage type [place] red alliance party ID [facility] Appolicious insurance [facility] [id number]
--- OUTSIDE RECORDS SUMMARY | 2025-01-03 08:10 | XMS_ITS | Encounter Summary ---
Author Organization [facility] Address [address] [place] [address] Care Team Providers Care Card Feeder Name Role Phone Reese Bailey MD Primary Care Provider [phone] Gabriela Tomlinson APRN-BPM DEVELOPER Primary Care Provider Reason for Visit * Reason Onset Date Comments General 07/30/2018 Encounter Details Date Type Department Care Team (Late st Contact Info) Description 07/30/2018 Telephone [facility] Orthoped[facility] [address] [place] [phone] Sofy Kirby General Social History Tobacco Use Types Packs/Day Years Used Date Smoking Tobacco: Former Cigarettes Q uit: 2007 Smokeless Tobacco: Never Alcohol Use Standard Drinks/Week Comments Yes 1 (1 standard drink = 0.6 oz pur e alcohol) few times per week Comments No Sex and Gender Information Value Date Recorded Sex Assigned at Not on file Legal Sex Female 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 Answer Date of Assessment Author No 07/27/2018 11:00 AM WELDING MACHINE OPERATOR HELPER GAS Francisco J singh, Lindsey Cisneros RN * Is person blind or have serious difficulty seeing? Answer Date of Assessment Author No 07/27/2018 11:00 AM Lindsey Gimenez RN * Does person have serious difficulty walking/climbing stairs? Answer Date of Assessment Author Yes 07/27/2018 11:00 AM Lindsey Gimenez RN * Does person have difficulty dressing/bathing? Answer Date of Assessment Author No 07/27/2018 11:00 AM Lindsey Gimenez RN * Does person have difficulty doing errands alone? Answer Date of Assessment Author No 07/27/2018 11:00 AM Lindsey Gimenez RN documented as of this encounter Mental Status * Does person have difficulty concentrating/remembering/making decisions? Answer Entry Date Author No 07/27/2018 11:00 AM Lindsey Gimenez RN documented in this encounter Miscellaneous Notes * Telephone Encounter - Sofy Kirby - 07/30/2018 9:12 AM CST called requesting to talk with Dr. Fisher or nurse, patient states that she had previously left a message but never received a call back. would like a call back @[phone] concerning her home healthcare. ING MACHINE OPERATOR HELPER GAS documented in this encounter Plan of Treatment Not on file documented as of this encounter Visit Diagnoses Not on filedocumented in this encounter Care Teams Card Feeder Relationship Specialty Start Date End Date Reese Bailey MD [address] [place] [address] PCP - General 07/26/18 11/12/18 Gabriela Tomlinson APRN-BPM DEVELOPER [address] [place] [phone] PCP - General 11/13/18 documented as of this encounter
== END 2025-01-03 08:04 | disposition home or self-care (01) ==
LOC: ANHIMG 08:05
PROVIDERS: PCP Nurse Practitioner Family; Visit Provider Obstetrics & Gynecology
DX: Z12.31 Encounter for screening mammogram for malignant neoplasm of breast (principal); Z98.82 Breast implant status
CPT/HCPCS: 77063; 77067